=== PATIENT | female | born 1960 | race Caucasian/White ===

== ENCOUNTER → 2023-07-23 | Outpatient (CLI) | payer OTHER, SELFPAY ==
[2023-07-23 12:10] LABS: Erythrocyte Sedimentation Rate 43 mm/hr (0-30)
[2023-07-23 12:12] LABS: Absolute Lymphocyte Count 1.45 X10^3/uL (0.83-4.51); Absolute Neutrophil Count 7.8 X10^3/uL (2.0-7.7); Basophil# 0.06 X10^3/uL; Basophil% 0.6 % (0-1); Eosinophil# 0.69 X10^3/uL; Eosinophils% 6.5 % (0-5); Hematocrit 41.4 % (37-47); Hemoglobin 13.2 g/dL (12.0-15.0); Lymphocyte # 1.45 X10^3/ul (0.83-4.51); Lymphocyte % 13.6 % (19-41); Mean Corp Hgb Conc 31.9 g/dL (32-36); Mean Corpuscular Hgb 30.2 pg (27.0-32.0); Mean Corpuscular Volume 94.7 fL (81-99); Monocyte# 0.62 X10^3/uL; Monocyte% 5.8 % (0-10); NRBC Flagged by Analyzer 0 % (0-5); Neutrophil # 7.77 X10^3/uL (2.7-7.7); Neutrophil % 73.1 % (47-70); Platelet Count 338 K/mm3 (150-450); RBC Distribution Width CV 14.6 % (11.6-14.6); RBC Distribution Width SD 50.8 fl (35.1-43.9); Red Blood Count 4.37 M/mm3 (4.2-5.4); White Blood Count 10.6 K/mm3 (4.4-11.0)
[2023-07-23 12:45] LABS: ALB/GLOB Ratio 0.8 RATIO (0.9-2.4); AST(SGOT) 22 U/L (15-37); Alanine Aminotransfer ALT/SGPT 36 U/L (13-56); Albumin, Serum 3.3 g/dL (3.2-5.0); Alkaline Phosphatase 79 U/L (45-117); Anion Gap 7 (5-15); BUN 20 mg/dL (7-18); BUN/Creat Ratio 18.7 RATIO (10-20); Calcium,Total 8.8 mg/dL (8.5-10.1); Chloride 109 mmol/L (98-107); Creatinine, Serum 1.07 mg/dL (0.55-1.02); EST Glomerular Filtration Rate 55 mL/min (>60); Est Glom Filt Rate - Afr Amer 67 mL/min (>60); Globulin 4.2 g/dL (2.2-4.2); Glucose 94 mg/dL (74-106); Potassium 4.2 mmol/L (3.5-5.1); Protein, Total 7.5 g/dL (6.4-8.2); Rheumatoid Factor < 10.0 IU/mL (<15); Sodium Level 142 mmol/L (136-145)
[2023-07-23 13:53] LABS: Hepatitis B Surface Antibody Non-Reactive; Hepatitis B Surface Antigen Non-Reactive (Nonreactive); Hepatitis C Antibody Non-Reactive (Nonreactive)
[2023-07-24 12:08] LABS: ANTINUCLEAR ANTIBODIES DIRECT Negative (Negative)
[2023-07-25 13:07] LABS: CCP IgG Antibodies 33 units (0-19); QNTFERON TB Mitogen Value 5.75 IU/mL (.); QNTFERON TB Nil Value 0 IU/mL (.); QNTFERON TB1+ Ag Value 0.02 IU/mL (.); QNTFERON TB2+ Ag Value 0.02 IU/mL (.); QNTIFERON TB Positive Criteria Negative (Negative)
== END | disposition home or self-care (01) ==
PROVIDERS: PCP Family Medicine; Referring Provider Internal Medicine Rheumatology; Visit Provider Internal Medicine Rheumatology
DX: M06.4 Inflammatory polyarthropathy (principal); M79.7 Fibromyalgia; I10 Essential (primary) hypertension; E78.5 Hyperlipidemia, unspecified; Z87.39 Personal history of other diseases of the musculoskeletal system and connective tissue
CPT/HCPCS: 36415; 80053; 85025; 85652; 86038; 86140; 86200; 86431; 86480; 86706; 86803; 87340

== ENCOUNTER → 2023-08-29 | Outpatient (CLI) | payer OTHER, SELFPAY ==
[2023-08-29 17:41] LABS: Absolute Neutrophil Count 4.9 X10^3/uL (2.0-7.7); Basophil# 0.06 X10^3/uL; Basophil% 0.8 % (0-1); Eosinophil# 0.15 X10^3/uL; Hematocrit 39.3 % (37-47); Hemoglobin 12.9 g/dL (12.0-15.0); Lymphocyte % 23.2 % (19-41); Mean Corp Hgb Conc 32.8 g/dL (32-36); Mean Corpuscular Hgb 30.9 pg (27.0-32.0); Mean Corpuscular Volume 94.2 fL (81-99); Mean Platelet Vol. 11.3 fl (6.2-12.0); Monocyte# 0.51 X10^3/uL; NRBC Flagged by Analyzer 0 % (0-5); Neutrophil # 4.87 X10^3/uL (2.7-7.7); Neutrophil % 66.6 % (47-70); Platelet Count 338 K/mm3 (150-450); RBC Distribution Width CV 13.9 % (11.6-14.6); RBC Distribution Width SD 47.1 fl (35.1-43.9); Red Blood Count 4.17 M/mm3 (4.2-5.4); White Blood Count 7.3 K/mm3 (4.4-11.0)
[2023-08-29 17:56] LABS: ALB/GLOB Ratio 0.9 RATIO (0.9-2.4); AST(SGOT) 28 U/L (15-37); Alanine Aminotransfer ALT/SGPT 33 U/L (13-56); Albumin, Serum 3.5 g/dL (3.2-5.0); Alkaline Phosphatase 78 U/L (45-117); Anion Gap 9 (5-15); BUN 19 mg/dL (7-18); BUN/Creat Ratio 12.8 RATIO (10-20); Calcium,Total 8.9 mg/dL (8.5-10.1); Chloride 106 mmol/L (98-107); Creatinine, Serum 1.49 mg/dL (0.55-1.02); EST Glomerular Filtration Rate 38 mL/min (>60); Est Glom Filt Rate - Afr Amer 46 mL/min (>60); Globulin 4.1 g/dL (2.2-4.2); Glucose 86 mg/dL (74-106); Protein, Total 7.6 g/dL (6.4-8.2); Sodium Level 140 mmol/L (136-145)
== END | disposition home or self-care (01) ==
LOC: MTLAB 14:28
PROVIDERS: PCP Family Medicine; Referring Provider Internal Medicine Rheumatology; Visit Provider Internal Medicine Rheumatology
DX: M06.4 Inflammatory polyarthropathy (principal); Z79.899 Other long term (current) drug therapy; M79.7 Fibromyalgia; M17.0 Bilateral primary osteoarthritis of knee; M47.897 Other spondylosis, lumbosacral region; I10 Essential (primary) hypertension; E78.5 Hyperlipidemia, unspecified; E03.9 Hypothyroidism, unspecified; Z86.718 Personal history of other venous thrombosis and embolism; F32.A Depression, unspecified
CPT/HCPCS: 36415; 80053; 85025

== ENCOUNTER → 2023-10-09 | Outpatient (CLI) | payer BC, SELFPAY ==
--- OUTSIDE RECORDS SUMMARY | 2023-10-09 16:36 | XMS RPT_ITS | CCD ---
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 Carmen Vieira Unavailable Unavailable Chayo Hamilton MD Primary Care Provider Chayo Hamilton MD Primary Care Provider CHAYO HAMILTON Primary Care Unavailable OSWALD MCKENZIE Attending Unavailable YESY LOPEZ Attending Unavailable Allergies Allergy Classification Reported Allergen(s) Allergy Type Date of Onset Reaction(s) Facility (11 sources) Codeine; Translations: [Codeine] Drug Allergy 06-01-2019 Nausea Only [place], [place] (9 sources) DULoxetine; Translations: [DULoxetine] Drug Allergy 11-22-2020 [facility] (5 sources) Fenofibrate; Translations: [Fenofibrate] Drug Allergy 11-22-2020 [facility] (4 sources) Fenofibrate Drug Allergy 11-22-2020 [facility] Medications Current Medications Medication Drug Class(es) Dates Sig (Normalized) Sig (Original) acetaminophen 325 mg oral tablet (20 sources) Start: 02-09-2022 Tylenol Tablet 325 MG 650 mg Tablet Oral Give 650 mg by mouth every 4 hours as needed for Pain Maximum dose of acetaminophen is 4000 my from all sources 02/09/2022 10:15:00 Completed/Discontinued Medications Medication Drug Class(es) Dates Sig (Normalized) Sig (Original) acetaminophen 325 mg / HYDROcodone bitartrate 5 mg oral tablet (1 source) Opioid Agonist Start: 06-01-2019 End: 06-01-2019 HYDROcodone-aceta minophen (NORCO) 5-325 MG per tablet 1 tablet amLODIPine 10 mg oral tablet (3 sources) Dihydropyridine Calcium Channel Roel End: 06-25-2019 take 1 tablet by mouth once daily amLODIPine (NORVASC) 10 MG tablet Take 10 mg by mouth daily 0 06/25/2019 Discontinued (Stop Taking at Discharge) ampicillin-sulbacta m (UNASYN) 3,000 mg in sodium chloride 0.9 % 100 mL IVPB (ADD-VANTAGE) (2 sources) Start: 08-06-2021 End: 08-07-2021 ampicillin-sulbac villeda (UNASYN) 3,000 mg in sodium chloride 0.9 % 100 mL IVPB (ADD-VANTAGE) Problems Active Problems Problem Classification Problem Date Documented Da te Episodic/Chronic Acute and unspecified renal failure (10 sources) Acute injury of kidney; Translations: [JESUS (acute kidney injury) (HCC)] Onset: 06-01-2019 06-01-2019 Asthma (1 source) Asthma Onset: 02-09-2022 Chronic kidney disease (1 source) Chronic kidney disease Onset: 02-09-2022 Chronic obstructive pulmonary disease and bronchiectasis (1 source) Chronic obstructive pulmonary disease and bronchiectasis Onset: 02-09-2022 Coronary atherosclerosis and other heart disease (1 source) Coronary atherosclerosis and other heart disease Onset: 02-09-2022 Gastrointestinal hemorrhage (7 sources) Blood-tinged feces; Translations: [Hematochezia] 06-16-2019 Mood disorders (1 source) Mood disorders Onset: 02-09-2022 Osteoarthritis (9 sources) Arthritis of right ankle; Translations: [Primary osteoarthritis, right ankle and foot] Onset: 02-06-2022 02-06-2022 Chronic Other connective tissue disease (1 source) Swelling of lower limb; Translations: [Leg swelling] Episodic Other nervous system disorders (1 source) Polyneuropathy; Translations: [Peripheral polyneuropathy] Chronic Other nervous system disorders (1 source) Walking disability Onset: 02-09-2022 Chronic Other nervous system disorders (2 sources) Other chronic pain; Translations: [Other chronic pain] Onset: 04-10-2023 Chronic Other non-traumatic joint disorders (1 source) Developmental dislocation of ankle and/or foot Onset: 02-09-2022 Chronic Other non-traumatic joint disorders (4 sources) Pain in right knee; Translations: [Pain in joint, lower leg] Onset: 04-10-2023 04-10-2023 Episodic Other nutritional; endocrine; and metabolic disorders (1 source) Morbid obesity Onset: 02-09-2022 Chronic Phlebitis; thrombophlebitis and thromboembolism (8 sources) Acute deep venous thrombosis of bilateral legs; Translations: [Acute deep venous thrombosis of right lower extremity] 06-16-2019 Residual codes; unclassified (1 source) Edema of lower extremity; Translations: [Bilateral lower extremity edema] Episodic Residual codes; unclassified (1 source) Other specified health status; Translations: [Other specified conditions influencing health status] Episodic Unclassified (13 sources) Onset: 02-09-2022 Past or Other Problems Problem Classification Problem Date Documented Da te Episodic/Chronic Acquired foot deformities (6 sources) Talipes cavus; Translations: [Congenital pes cavus, right foot] Onset: 02-06-2022 Episodic Acute and unspecified renal failure (19 sources) Acute renal failure syndrome; Translations: [Acute injury of kidney] Onset: 06-01-2019 Resolved: 06-23-2019 06-23-2019 Episodic Deficiency and other anemia (15 sources) Anemia; Translations: [Anemia, unspecified] Onset: 06-16-2019 06-16-2019 Episodic Gastrointestinal hemorrhage (8 sources) Blood-tinged feces; Translations: [Melena] Onset: 06-16-2019 06-16-2019 Episodic Other aftercare (15 sources) Long-term current use of anticoagulant; 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] Onset: 06-16-2019 06-16-2019 Episodic Other non-traumatic joint disorders (2 sources) Pain in left knee; Translations: [Pain in left knee] Onset: 08-08-2022 Episodic Phlebitis; thrombophlebitis and thromboembolism (9 sources) Acute deep vein thrombosis of lower limb; Translations: [Acute deep venous thrombosis of bilateral legs] Onset: 06-16-2019 06-16-2019 Episodic Residual codes; unclassified (11 sources) History of colonoscopy; Translations: [Other specified postprocedural states] Resolved: 06-23-2019 06-23-2019 Episodic Skin and subcutaneous tissue infections (9 sources) Cellulitis of face; Translations: [Cellulitis of face] Onset: 08-06-2021 Episodic Results Test Name Value Interpretation Reference Range Facil ity Vital Signs Date Time Vital Sign Value Performing Clinician Kalyn regan 02-22-2022 12:32-0400 PAIN LEVEL 2 {score} Dr. Carmen Vieira [facility] 02-22-2022 12:09-0400 PAIN LEVEL 5 {score} Dr. Carmen Vieira [facility] 02-22-2022 07:29-0400 PAIN LEVEL 1 {score} Dr. Carmen Vieira [facility] 02-22-2022 07:28-0400 Body temperature 97.7 [degF] Dr. Carmen Vieira [facility] 02-22-2022 07:28-0400 Diastolic blood pressure 78 mm[Hg] Dr. Carmen Vieira [facility] 02-22-2022 07:28-0400 Heart rate 78 /min Dr. Carmen Vieira [facility] 02-22-2022 07:28-0400 Respiratory rate 15 /min Dr. Carmen Vieira [facility] 02-22-2022 07:28-0400 Systolic blood pressure 148 mm[Hg] Dr. Carmen Vieira [facility] 02-22-2022 07:28-0400 PAIN LEVEL 1 {score} Dr. Carmen Vieira [facility] 02-22-2022 05:53-0400 PAIN LEVEL 4 {score} Dr. Carmen Vieira [facility] 02-22-2022 01:11-0400 Body temperature 97.7 [degF] Dr. Carmen Vieira [facility] 02-22-2022 01:11-0400 Diastolic blood pressure 94 mm[Hg] Dr. Carmen Vieira [facility] 02-22-2022 01:11-0400 Heart rate 75 /min Dr. Carmen Vieira [facility] 02-22-2022 01:11-0400 Respiratory rate 18 /min Dr. Carmen Vieira [facility] 02-22-2022 01:11-0400 Systolic blood pressure 163 mm[Hg] Dr. Carmen Vieira [facility] 02-22-2022 01:11-0400 PAIN LEVEL 0 {score} Dr. Carmen Vieira [facility] 02-22-2022 00:16-0400 PAIN LEVEL 0 {score} Dr. Carmen Vieira [facility] 02-21-2022 23:18-0400 PAIN LEVEL 0 {score} Dr. Carmen Vieira [facility] 02-21-2022 21:00-0400 PAIN LEVEL 4 {score} Dr. Carmen Vieira [facility] 02-21-2022 16:55-0400 PAIN LEVEL 6 {score} Dr. Carmen Vieira [facility] 02-21-2022 13:39-0400 PAIN LEVEL 1 {score} Dr. Carmen Vieira [facility] 02-21-2022 12:44-0400 PAIN LEVEL 5 {score} Dr. Carmen Vieira [facility] 02-21-2022 08:51-0400 PAIN LEVEL 1 {score} Dr. Carmen Vieira [facility] 02-21-2022 08:27-0400 Body temperature 97.7 [degF] Dr. Carmen Vieira [facility] 02-21-2022 08:27-0400 Diastolic blood pressure 87 mm[Hg] Dr. Carmen Vieira [facility] 02-21-2022 08:27-0400 Heart rate 102 /min Dr. Carmen Vieira [facility] 02-21-2022 08:27-0400 Respiratory rate 18 /min Dr. Carmen Vieira [facility] 02-21-2022 08:27-0400 Systolic blood pressure 159 mm[Hg] Dr. Carmen Vieira [facility] 02-21-2022 08:26-0400 PAIN LEVEL 5 {score} Dr. Carmen Vieira [facility] 02-21-2022 08:26-0400 PAIN LEVEL 5 {score} Dr. Carmen Vieira [facility] 02-20-2022 22:32-0400 Body temperature 97.1 [degF] Dr. Carmen Vieira [facility] 02-20-2022 22:32-0400 Diastolic blood pressure 88 mm[Hg] Dr. Carmen Vieira [facility] 02-20-2022 22:32-0400 Heart rate 90 /min Dr. Carmen Vieira [facility] 02-20-2022 22:32-0400 Respiratory rate 16 /min Dr. Carmen Vieira [facility] 02-20-2022 22:32-0400 Systolic blood pressure 147 mm[Hg] Dr. Carmen Vieira [facility] 02-20-2022 22:32-0400 PAIN LEVEL 4 {score} Dr. Carmen Vieira [facility] 02-20-2022 20:43-0400 PAIN LEVEL 4 {score} Dr. Carmen Vieira [facility] 02-20-2022 20:05-0400 PAIN LEVEL 5 {score} Dr. Carmen Vieira [facility] 02-20-2022 18:04-0400 PAIN LEVEL 1 {score} Dr. Carmen Vieira [facility] 02-20-2022 15:52-0400 PAIN LEVEL 3 {score} Dr. Carmen Vieira [facility] 02-20-2022 07:07-0400 Body temperature 97.5 [degF] Dr. Carmen Vieira [facility] 02-20-2022 07:07-0400 Diastolic blood pressure 84 mm[Hg] Dr. Carmen Vieira [facility] 02-20-2022 07:07-0400 Heart rate 82 /min Dr. Carmen Vieira [facility] 02-20-2022 07:07-0400 Systolic blood pressure 160 mm[Hg] Dr. Carmen Vieira [facility] 02-20-2022 07:07-0400 PAIN LEVEL 0 {score} Dr. Carmen Vieira [facility] 02-20-2022 05:43-0400 PAIN LEVEL 3 {score} Dr. Carmen Vieira [facility] 02-20-2022 05:21-0400 PAIN LEVEL 4 {score} Dr. Carmen Vieira [facility] 02-19-2022 22:35-0400 Body temperature 97.1 [degF] Dr. Carmen Vieira [facility] 02-19-2022 22:35-0400 Diastolic blood pressure 88 mm[Hg] Dr. Carmen Vieira [facility] 02-19-2022 22:35-0400 Heart rate 84 /min Dr. Carmen Vieira [facility] 02-19-2022 22:35-0400 Respiratory rate 16 /min Dr. Carmen Vieira [facility] 02-19-2022 22:35-0400 Systolic blood pressure 155 mm[Hg] Dr. Carmen Vieira [facility] 02-19-2022 22:35-0400 PAIN LEVEL 0 {score} Dr. Carmen Vieira [facility] 02-19-2022 22:10-0400 PAIN LEVEL 3 {score} Dr. Carmen Vieira [facility] 02-19-2022 21:15-0400 PAIN LEVEL 5 {score} Dr. Carmen Vieira [facility] 02-19-2022 17:39-0400 PAIN LEVEL 0 {score} Dr. Carmen Vieira [facility] 02-19-2022 15:55-0400 PAIN LEVEL 5 {score} Dr. Carmen Vieira [facility] 02-19-2022 07:02-0400 Body temperature 97.8 [degF] Dr. Carmen Vieira [facility] 02-19-2022 07:02-0400 Diastolic blood pressure 84 mm[Hg] Dr. Carmen Vieira [facility] 02-19-2022 07:02-0400 Heart rate 80 /min Dr. Carmen Vieira [facility] 02-19-2022 07:02-0400 Respiratory rate 16 /min Dr. Carmen Vieira [facility] 02-19-2022 07:02-0400 Systolic blood pressure 156 mm[Hg] Dr. Carmen Vieira [facility] 02-19-2022 05:42-0400 PAIN LEVEL 0 {score} Dr. Carmen Vieira [facility] 02-19-2022 05:10-0400 PAIN LEVEL 5 {score} Dr. Carmen Vieira [facility] 02-18-2022 23:16-0400 Body temperature 97.9 [degF] Dr. Carmen Vieira [facility] 02-18-2022 23:16-0400 Diastolic blood pressure 88 mm[Hg] Dr. Carmen Vieira [facility] 02-18-2022 23:16-0400 Heart rate 83 /min Dr. Carmen Vieira [facility] 02-18-2022 23:16-0400 Respiratory rate 16 /min Dr. Carmen Vieira [facility] 02-18-2022 23:16-0400 Systolic blood pressure 169 mm[Hg] Dr. Carmen Vieira [facility] 02-18-2022 23:16-0400 PAIN LEVEL 0 {score} Dr. Carmen Vieira [facility] 02-18-2022 23:01-0400 PAIN LEVEL 0 {score} Dr. Carmen Vieira [facility] 02-18-2022 21:09-0400 PAIN LEVEL 5 {score} Dr. Carmen Vieira [facility] 02-18-2022 17:10-0400 PAIN LEVEL 1 {score} Dr. Carmen Vieira [facility] 02-18-2022 16:18-0400 PAIN LEVEL 7 {score} Dr. Carmen Vieira [facility] 02-18-2022 14:00-0400 Body temperature 97 [degF] Dr. Carmen Vieira [facility] 02-18-2022 14:00-0400 Diastolic blood pressure 93 mm[Hg] Dr. Carmen Vieira [facility] 02-18-2022 14:00-0400 Heart rate 74 /min Dr. Carmen Vieira [facility] 02-18-2022 14:00-0400 Respiratory rate 18 /min Dr. Carmen Vieira [facility] 02-18-2022 12:16-0400 PAIN LEVEL 1 {score} Dr. Carmen Vieira [facility] 02-18-2022 12:12-0400 Body temperature 97.8 [degF] Dr. Carmen Vieira [facility] 02-18-2022 12:12-0400 Oxygen saturation in Blood 98 % Dr. Carmen Vieira [facility] 02-18-2022 11:42-0400 PAIN LEVEL 6 {score} Dr. Carmen Vieira [facility] 02-18-2022 07:47-0400 PAIN LEVEL 3 {score} Dr. Carmen Vieira [facility] 02-18-2022 07:46-0400 Body temperature 97.8 [degF] Dr. Carmen Vieira [facility] 02-18-2022 07:46-0400 Diastolic blood pressure 78 mm[Hg] Dr. Carmen Vieira [facility] 02-18-2022 07:46-0400 Heart rate 87 /min Dr. Carmen Vieira [facility] 02-18-2022 07:46-0400 Respiratory rate 16 /min Dr. Carmen Vieira [facility] 02-18-2022 07:46-0400 Systolic blood pressure 148 mm[Hg] Dr. Carmen Vieira [facility] 02-18-2022 07:46-0400 PAIN LEVEL 3 {score} Dr. Carmen Vieira [facility] 02-18-2022 06:22-0400 PAIN LEVEL 5 {score} Dr. Carmen Vieira [facility] 02-17-2022 23:42-0400 PAIN LEVEL 0 {score} Dr. Carmen Vieira [facility] 02-17-2022 20:15-0400 PAIN LEVEL 4 {score} Dr. Carmen Vieira [facility] 02-17-2022 15:54-0400 PAIN LEVEL 0 {score} Dr. Carmen Vieira [facility] 02-17-2022 14:37-0400 PAIN LEVEL 5 {score} Dr. Carmen Vieira [facility] 02-17-2022 12:44-0400 PAIN LEVEL 2 {score} Dr. Carmen Vieira [facility] 02-17-2022 11:56-0400 PAIN LEVEL 8 {score} Dr. Carmen Vieira [facility] 02-17-2022 10:44-0400 PAIN LEVEL 1 {score} Dr. Carmen Vieira [facility] 02-17-2022 08:45-0400 Body temperature 97.6 [degF] Dr. Carmen Vieira [facility] 02-17-2022 08:45-0400 Diastolic blood pressure 72 mm[Hg] Dr. Carmen Vieira [facility] 02-17-2022 08:45-0400 Heart rate 89 /min Dr. Carmen Vieira [facility] 02-17-2022 08:45-0400 Respiratory rate 18 /min Dr. Carmen Vieira [facility] 02-17-2022 08:45-0400 Systolic blood pressure 130 mm[Hg] Dr. Carmen Vieira [facility] 02-17-2022 08:38-0400 PAIN LEVEL 6 {score} Dr. Carmen Vieira [facility] 02-17-2022 08:37-0400 PAIN LEVEL 6 {score} Dr. Carmen Vieira [facility] 02-17-2022 05:48-0400 PAIN LEVEL 3 {score} Dr. Carmen Vieira [facility] 02-17-2022 01:26-0400 PAIN LEVEL 4 {score} Dr. Carmen Vieira [facility] 02-16-2022 23:18-0400 Body temperature 97.1 [degF] Dr. Carmen Vieira [facility] 02-16-2022 23:18-0400 Diastolic blood pressure 67 mm[Hg] Dr. Carmen Vieira [facility] 02-16-2022 23:18-0400 Heart rate 100 /min Dr. Carmen Vieira [facility] 02-16-2022 23:18-0400 Respiratory rate 20 /min Dr. Carmen Vieira [facility] 02-16-2022 23:18-0400 Systolic blood pressure 119 mm[Hg] Dr. Carmen Vieira [facility] 02-16-2022 23:18-0400 PAIN LEVEL 2 {score} Dr. Carmen Vieira [facility] 02-16-2022 20:48-0400 PAIN LEVEL 3 {score} Dr. Carmen Vieira [facility] 02-16-2022 19:54-0400 PAIN LEVEL 5 {score} Dr. Carmen Vieira [facility] 02-16-2022 10:17-0400 Body temperature 97.3 [degF] Dr. Carmen Vieira [facility] 02-16-2022 10:17-0400 Diastolic blood pressure 68 mm[Hg] Dr. Carmen Vieira [facility] 02-16-2022 10:17-0400 Heart rate 72 /min Dr. Carmen Vieira [facility] 02-16-2022 10:17-0400 Respiratory rate 16 /min Dr. Carmen Vieira [facility] 02-16-2022 10:17-0400 Systolic blood pressure 144 mm[Hg] Dr. Carmen Vieira [facility] 02-16-2022 10:12-0400 PAIN LEVEL 0 {score} Dr. Carmen Vieira [facility] 02-15-2022 22:44-0400 Body temperature 97.1 [degF] Dr. Carmen Vieira [facility] 02-15-2022 22:44-0400 Diastolic blood pressure 72 mm[Hg] Dr. Carmen Vieira [facility] 02-15-2022 22:44-0400 Heart rate 76 /min Dr. Carmen Vieira [facility] 02-15-2022 22:44-0400 Respiratory rate 16 /min Dr. Carmen Vieira [facility] 02-15-2022 22:44-0400 Systolic blood pressure 153 mm[Hg] Dr. Carmen Vieira [facility] 02-15-2022 22:44-0400 PAIN LEVEL 0 {score} Dr. Carmen Vieira [facility] 02-15-2022 20:47-0400 PAIN LEVEL 4 {score} Dr. Carmen Vieira [facility] 02-15-2022 20:15-0400 PAIN LEVEL 4 {score} Dr. Carmen Vieira [facility] 02-15-2022 14:37-0400 PAIN LEVEL 1 {score} Dr. Carmen Vieira [facility] 02-15-2022 14:00-0400 Body weight 175.[address] Carmen Vieira [facility] 02-15-2022 13:37-0400 PAIN LEVEL 5 {score} Dr. Carmen Vieira [facility] 02-15-2022 10:00-0400 PAIN LEVEL 2 {score} Dr. Carmen Vieira [facility] 02-15-2022 09:30-0400 PAIN LEVEL 6 {score} Dr. Carmen Vieira [facility] 02-15-2022 07:52-0400 Body temperature 97.9 [degF] Dr. Carmen Vieira [facility] 02-15-2022 07:52-0400 Diastolic blood pressure 74 mm[Hg] Dr. Carmen Vieira [facility] 02-15-2022 07:52-0400 Heart rate 76 /min Dr. Carmen Vieira [facility] 02-15-2022 07:52-0400 Respiratory rate 18 /min Dr. Carmen Vieira [facility] 02-15-2022 07:52-0400 Systolic blood pressure 150 mm[Hg] Dr. Carmen Vieira [facility] 02-15-2022 07:52-0400 PAIN LEVEL 2 {score} Dr. Carmen Vieira [facility] 02-15-2022 05:08-0400 PAIN LEVEL 1 {score} Dr. Carmen Vieira [facility] 02-15-2022 04:17-0400 PAIN LEVEL 3 {score} Dr. Carmen Vieira [facility] 02-15-2022 01:37-0400 PAIN LEVEL 1 {score} Dr. Carmen Vieira [facility] 02-15-2022 00:27-0400 Body temperature 98 [degF] Dr. Carmen Vieira [facility] 02-15-2022 00:27-0400 Diastolic blood pressure 76 mm[Hg] Dr. Carmen Vieira [facility] 02-15-2022 00:27-0400 Heart rate 71 /min Dr. Carmen Vieira [facility] 02-15-2022 00:27-0400 Respiratory rate 16 /min Dr. Carmen Vieira [facility] 02-15-2022 00:27-0400 Systolic blood pressure 144 mm[Hg] Dr. Carmen Vieira [facility] 02-15-2022 00:25-0400 PAIN LEVEL 1 {score} Dr. Carmen Vieira [facility] 02-15-2022 00:24-0400 PAIN LEVEL 3 {score} Dr. Carmen Vieira [facility] 02-14-2022 22:21-0400 PAIN LEVEL 0 {score} Dr. Carmen Vieira [facility] 02-14-2022 20:30-0400 PAIN LEVEL 4 {score} Dr. Carmen Vieira [facility] 02-14-2022 19:55-0400 PAIN LEVEL 1 {score} Dr. Carmen Vieira [facility] 02-14-2022 18:02-0400 PAIN LEVEL 5 {score} Dr. Carmen Vieira [facility] 02-14-2022 15:17-0400 PAIN LEVEL 1 {score} Dr. Carmen Vieira [facility] 02-14-2022 14:07-0400 PAIN LEVEL 6 {score} Dr. Carmen Vieira [facility] 02-14-2022 14:07-0400 Body weight 173.[address] Carmen Vieira [facility] 02-14-2022 09:57-0400 PAIN LEVEL 2 {score} Dr. Carmen Vieira [facility] 02-14-2022 08:23-0400 Body temperature 97.2 [degF] Dr. Carmen Vieira [facility] 02-14-2022 08:23-0400 Diastolic blood pressure 90 mm[Hg] Dr. Carmen Vieira [facility] 02-14-2022 08:23-0400 Heart rate 78 /min Dr. Carmen Vieira [facility] 02-14-2022 08:23-0400 Respiratory rate 16 /min Dr. Carmen Vieira [facility] 02-14-2022 08:23-0400 Systolic blood pressure 147 mm[Hg] Dr. Carmen Vieira [facility] 02-14-2022 08:07-0400 PAIN LEVEL 7 {score} Dr. Carmen Vieira [facility] 02-14-2022 07:05-0400 PAIN LEVEL 1 {score} Dr. Carmen Vieira [facility] 02-14-2022 05:51-0400 PAIN LEVEL 2 {score} Dr. Carmen Vieira [facility] 02-14-2022 05:17-0400 PAIN LEVEL 5 {score} Dr. Carmen Vieira [facility] 02-14-2022 04:49-0400 PAIN LEVEL 3 {score} Dr. Carmen Vieira [facility] 02-14-2022 02:20-0400 PAIN LEVEL 7 {score} Dr. Carmen Vieira [facility] 02-14-2022 02:12-0400 PAIN LEVEL 4 {score} Dr. Carmen Vieira [facility] 02-14-2022 00:16-0400 Body temperature 97 [degF] Dr. Carmen Vieira [facility] 02-14-2022 00:16-0400 Diastolic blood pressure 92 mm[Hg] Dr. Carmen Vieira [facility] 02-14-2022 00:16-0400 Heart rate 72 /min Dr. Carmen Vieira [facility] 02-14-2022 00:16-0400 Respiratory rate 16 /min Dr. Carmen Vieira [facility] 02-14-2022 00:16-0400 Systolic blood pressure 158 mm[Hg] Dr. Carmen Vieira [facility] 02-14-2022 00:08-0400 PAIN LEVEL 6 {score} Dr. Carmen Vieira [facility] 02-13-2022 23:37-0400 PAIN LEVEL 0 {score} Dr. Carmen Vieira [facility] 02-13-2022 23:14-0400 PAIN LEVEL 3 {score} Dr. Carmen Vieira [facility] 02-13-2022 20:24-0400 PAIN LEVEL 7 {score} Dr. Carmen Vieira [facility] 02-13-2022 19:33-0400 PAIN LEVEL 4 {score} Dr. Carmen Vieira [facility] 02-13-2022 18:22-0400 PAIN LEVEL 6 {score} Dr. Carmen Vieira [facility] 02-13-2022 15:36-0400 PAIN LEVEL 0 {score} Dr. Carmen Vieira [facility] 02-13-2022 14:31-0400 PAIN LEVEL 8 {score} Dr. Carmen Vieira [facility] 02-13-2022 13:01-0400 PAIN LEVEL 1 {score} Dr. Carmen Vieira [facility] 02-13-2022 12:06-0400 PAIN LEVEL 5 {score} Dr. Carmen Vieira [facility] 02-13-2022 08:57-0400 PAIN LEVEL 3 {score} Dr. Carmen Vieira [facility] 02-13-2022 08:21-0400 PAIN LEVEL 7 {score} Dr. Carmen Vieira [facility] 02-13-2022 07:49-0400 Body temperature 97.9 [degF] Dr. Carmen Vieira [facility] 02-13-2022 07:49-0400 Diastolic blood pressure 94 mm[Hg] Dr. Carmen Vieira [facility] 02-13-2022 07:49-0400 Heart rate 82 /min Dr. Carmen Vieira [facility] 02-13-2022 07:49-0400 Respiratory rate 16 /min Dr. Carmen Vieira [facility] 02-13-2022 07:49-0400 Systolic blood pressure 140 mm[Hg] Dr. Carmen Vieira [facility] 02-13-2022 07:49-0400 PAIN LEVEL 0 {score} Dr. Carmen Vieira [facility] 02-13-2022 05:52-0400 PAIN LEVEL 3 {score} Dr. Carmen Vieira [facility] 02-13-2022 05:08-0400 PAIN LEVEL 7 {score} Dr. Carmen Vieira [facility] 02-13-2022 03:27-0400 PAIN LEVEL 3 {score} Dr. Carmen Vieira [facility] 02-13-2022 01:55-0400 PAIN LEVEL 7 {score} Dr. Carmen Vieira [facility] 02-12-2022 23:34-0400 Body temperature 97.5 [degF] Dr. Carmen Vieira [facility] 02-12-2022 23:34-0400 Diastolic blood pressure 95 mm[Hg] Dr. Carmen Vieira [facility] 02-12-2022 23:34-0400 Heart rate 81 /min Dr. Carmen Vieira [facility] 02-12-2022 23:34-0400 Respiratory rate 18 /min Dr. Carmen Vieira [facility] 02-12-2022 23:34-0400 Systolic blood pressure 176 mm[Hg] Dr. Carmen Vieira [facility] 02-12-2022 23:20-0400 PAIN LEVEL 3 {score} Dr. Carmen Vieira [facility] 02-12-2022 19:48-0400 PAIN LEVEL 8 {score} Dr. Carmen Vieira [facility] 02-12-2022 15:32-0400 Body temperature 97.7 [degF] Dr. Carmen Vieira [facility] 02-12-2022 15:32-0400 Diastolic blood pressure 94 mm[Hg] Dr. Carmen Vieira [facility] 02-12-2022 15:32-0400 Heart rate 94 /min Dr. Carmen Vieira [facility] 02-12-2022 15:32-0400 Systolic blood pressure 150 mm[Hg] Dr. Carmen Vieira [facility] 02-12-2022 14:49-0400 PAIN LEVEL 2 {score} Dr. Carmen Vieira [facility] 02-12-2022 14:49-0400 PAIN LEVEL 2 {score} Dr. [facility] 02-12-2022 13:40-0400 PAIN LEVEL 8 {score} Dr. [facility] 02-12-2022 13:40-0400 PAIN LEVEL 8 {score} Dr. [facility] 02-12-2022 07:32-0400 PAIN LEVEL 2 {score} Dr. Carm[facility] 02-12-2022 05:41-0400 PAIN LEVEL 7 {score} Dr. [facility] 02-12-2022 04:52-0400 PAIN LEVEL 4 {score} Dr. Carm[facility] 02-11-2022 23:07-0400 PAIN LEVEL 6 {score} Dr. [facility] 02-11-2022 22:39-0400 PAIN LEVEL 7 {score} Dr. Carm[facility] 02-11-2022 20:21-0400 PAIN LEVEL 5 {score} Dr. [facility] 02-11-2022 20:21-0400 PAIN LEVEL 5 {score} Dr. [facility] 02-11-2022 17:49-0400 PAIN LEVEL 6 {score} Dr. Carm[facility] 02-11-2022 16:50-0400 PAIN LEVEL 7 {score} Dr. Carmen [facility] 02-11-2022 15:07-0400 PAIN LEVEL 0 {score} Dr. Carmen [facility] 02-11-2022 13:13-0400 PAIN LEVEL 2 {score} Dr. [facility] 02-11-2022 11:56-0400 PAIN LEVEL 7 {score} Dr. [facility] 02-11-2022 07:57-0400 Body temperature 97.2 [degF] Dr. [facility] 02-11-2022 07:57-0400 Diastolic blood pressure 74 mm[Hg] Dr. [facility] 02-11-2022 07:57-0400 Heart rate 88 /min Dr. Carmen [facility] 02-11-2022 07:57-0400 Oxygen saturation in Blood 93 % Dr. Carmen [facility] 02-11-2022 07:57-0400 Respiratory rate 18 /min Dr. Carmen [facility] 02-11-2022 07:57-0400 Systolic blood pressure 128 mm[Hg] Dr. Carmen [facility] 02-11-2022 07:06-0400 PAIN LEVEL 2 {score} Dr. Carmen [facility] 02-11-2022 05:58-0400 PAIN LEVEL 3 {score} Dr. Carmen [facility] 02-11-2022 05:58-0400 PAIN LEVEL 4 {score} Dr. Carmen [facility] 02-11-2022 05:32-0400 PAIN LEVEL 5 {score} Dr. [facility] 02-11-2022 02:04-0400 PAIN LEVEL 5 {score} Dr. [facility] 02-11-2022 00:21-0400 Body temperature 97.1 [degF] Dr. [facility] 02-11-2022 00:21-0400 Heart rate 109 /min Dr. [facility] 02-11-2022 00:21-0400 Respiratory rate 20 /min Dr. [facility] 02-11-2022 00:20-0400 Diastolic blood pressure 71 mm[Hg] Dr. [facility] 02-11-2022 00:20-0400 Systolic blood pressure 138 mm[Hg] Dr. Carmen [facility] 02-10-2022 22:06-0400 PAIN LEVEL 5 {score} Dr. [facility] 02-10-2022 21:02-0400 PAIN LEVEL 5 {score} Dr. Carm[facility] 02-10-2022 20:03-0400 PAIN LEVEL 7 {score} Dr. [facility] 02-10-2022 17:50-0400 PAIN LEVEL 1 {score} Dr. [facility] 02-10-2022 16:32-0400 PAIN LEVEL 4 {score} Dr. [facility] 02-10-2022 15:01-0400 Body weight 180.[address] [facility] 02-10-2022 13:36-0400 PAIN LEVEL 2 {score} Dr. [facility] 02-10-2022 13:36-0400 PAIN LEVEL 2 {score} Dr. Carm[facility] 02-10-2022 12:57-0400 PAIN LEVEL 6 {score} Dr. [facility] 02-10-2022 09:51-0400 PAIN LEVEL 8 {score} Dr. [facility] 02-10-2022 07:13-0400 PAIN LEVEL 2 {score} Dr. [facility] 02-10-2022 07:12-0400 PAIN LEVEL 2 {score} Dr. [facility] 02-10-2022 06:28-0400 PAIN LEVEL 9 {score} Dr. [facility] 02-10-2022 05:05-0400 PAIN LEVEL 5 {score} Dr. [facility] 02-10-2022 04:43-0400 Body height 182.[address] [facility] 02-10-2022 04:24-0400 PAIN LEVEL 9 {score} Dr. Carm[facility] 02-10-2022 01:06-0400 PAIN LEVEL 3 {score} Dr. [facility] 02-10-2022 01:06-0400 PAIN LEVEL 3 {score} Dr. [facility] 02-10-2022 00:35-0400 Body temperature 98 [degF] Dr. [facility] 02-10-2022 00:35-0400 Diastolic blood pressure 105 mm[Hg] Dr. [facility] 02-10-2022 00:35-0400 Heart rate 119 /min Dr. [facility] 02-10-2022 00:35-0400 Oxygen saturation in Blood 91 % Dr. Camren [facility] 02-10-2022 00:35-0400 Respiratory rate 18 /min Dr. [facility] 02-10-2022 00:35-0400 Systolic blood pressure 166 mm[Hg] Dr. [facility] 02-10-2022 00:34-0400 PAIN LEVEL 9 {score} Dr. [facility] 02-09-2022 23:15-0400 PAIN LEVEL 9 {score} Dr. [facility] 02-09-2022 16:29-0400 Heart rate 95 /min Dr. [facility] 02-09-2022 16:29-0400 Oxygen saturation in Blood 95 % Dr. [facility] 02-09-2022 16:29-0400 Respiratory rate 18 /min Dr. [facility] 02-09-2022 16:27-0400 Body temperature 97.8 [degF] Dr. [facility] 02-09-2022 16:27-0400 PAIN LEVEL 7 {score} Dr. [facility] 02-09-2022 16:26-0400 Diastolic blood pressure 80 mm[Hg] Dr. [facility] 02-09-2022 16:26-0400 Systolic blood pressure 130 mm[Hg] Dr. [facility] 08-09-2021 15:06-0500 Body temperature 98.6 [degF] Az Marvin MD Work Phone: [facility] 08-09-2021 15:06-0500 Diastolic blood pressure 83 mm[Hg] Az Marvin MD Work Phone: [facility] 08-09-2021 15:06-0500 Heart rate 85 /min Az Marvin MD Work Phone: [facility] 08-09-2021 15:06-0500 SaO2% (BldA) [Mass fraction] 94 % Az Marvin MD Work Phone: [facility] 08-09-2021 15:06-0500 Systolic blood pressure 117 mm[Hg] Az Marvin MD Work Phone: [facility] 08-09-2021 08:12-0500 Respiratory rate 16 /min Az Marvin MD Work Phone: [facility] 08-06-2021 09:51-0500 Body mass index (BMI) [Ratio] 55.1 kg/m2 Az Marvin MD Work Phone: [facility] 08-06-2021 09:51-0500 Body weight 174.18 kg Az Marvin MD Work Phone: [facility] 08-05-2021 07:55-0500 Heart rate 65 /min Cuco Koch MD Work Phone: [facility] 08-05-2021 07:55-0500 Respiratory rate 18 /min Cuco Koch MD Work Phone: [facility] 08-05-2021 07:55-0500 SaO2% (BldA) [Mass fraction] 96 % Cuco oKch MD Work Phone: [facility] 08-05-2021 07:22-0500 Body mass index (BMI) [Ratio] 55.1 kg/m2 Cuco Koch MD Work Phone: [facility] 08-05-2021 07:22-0500 Body temperature 97.5 [degF] Cuco Koch MD Work Phone: [facility] 08-05-2021 07:22-0500 Body weight 174.18 kg Cuco Koch MD Work Phone: [facility] 08-05-2021 07:22-0500 Diastolic blood pressure 92 mm[Hg] Cuco Koch MD Work Phone: [facility] 08-05-2021 07:22-0500 Systolic blood pressure 130 mm[Hg] Cuco Koch MD Work Phone: [facility] 06-15-2020 13:43-0400 BP Diastolic 93 mm[Hg] [facility] , [place] 06-15-2020 13:43-0400 BP Systolic 141 mm[Hg] [facility] , [place] 06-15-2020 13:43-0400 Pulse (Heart Rate) 63 /min [facility], [place] 06-15-2020 13:43-0400 Pulse Oximetry 96 % [facility] , [place] 06-15-2020 13:43-0400 Respiratory Rate 16 /min [facility], [place] 06-15-2020 12:32-0400 Body Temperature 99.5 [degF] [facility], [place] 06-15-2020 12:30-0400 BMI (Body Mass Index) 54.09 kg/m2 [facility], [place] 06-15-2020 12:30-0400 Body weight 171.01 kg [facility] , [place] 06-25-2019 07:50-0400 Body Temperature 96.4 [degF] [facility], [place] 06-25-2019 07:50-0400 BP Diastolic 80 mm[Hg] [facility], [place] 06-25-2019 07:50-0400 BP Systolic 107 mm[Hg] [facility], [place] 06-25-2019 07:50-0400 Pulse (Heart Rate) 85 /min [facility], [place] 06-25-2019 07:50-0400 Pulse Oximetry 94 % [facility], [place] 06-25-2019 07:50-0400 Respiratory Rate 17 /min [facility], [place] 06-24-2019 10:11-0400 Height 182.9 cm [facility], [place] 06-23-2019 05:02-0400 BMI (Body Mass Index) 48.96 kg/m2 [facility], [place] 06-23-2019 05:02-0400 Body weight 163.[facility], [place] 06-11-2019 16:51-0400 BP Diastolic 89 mm[Hg] [facility] , [place] 06-11-2019 16:51-0400 BP Systolic 156 mm[Hg] [facility] , [place] 06-11-2019 16:51-0400 Pulse (Heart Rate) 102 /min [facility], [place] 06-11-2019 16:51-0400 Pulse Oximetry 98 % [facility] , [place] 06-11-2019 16:51-0400 Respiratory Rate 18 /min [facility], [place] 06-11-2019 14:26-0400 Body Temperature 98.49 [degF] [facility], [place] 06-11-2019 10:28-0400 BMI (Body Mass Index) 50.21 kg/m2 [facility], [place] 06-11-2019 10:28-0400 Body weight 163.29 kg [facility] , [place] 06-11-2019 10:28-0400 Height 180.3 cm [facility] , [place] 06-02-2019 16:24-0400 Body Temperature 97.39 [degF] [facility] [place] 06-[facility] 16:24-0400 BP Diastolic 91 mm[Hg] Jorge Alberto Pisano [facility] , [place] 06-02-2019 16:24-0400 BP Systolic 142 mm[Hg] Jorge Alberto Pisano [facility] , [place] 06-02-2019 16:24-0400 Pulse (Heart Rate) 85 /min [facility] 06-02-2019 16:24-0400 Pulse Oximetry 97 % Jorge Alberto Higuera [facility] 06-02-2019 16:24-0400 Respiratory Rate 17 /min [facility] 06-02[facility]2019 01:45-0400 Body weight 163.93 kg Jorge Alberto Higuera [facility] Encounters Encounter Date Encounter Type Care Provider Facility Start: 06-12-2023 Telephone encounter Oswald melo MD Work Phone: [facility] Clinical Communication Procedures Date Procedure Procedure Detail Performing Clinician Start: 08-09-2021 Blood count complete auto&auto difrntl wbc Erika Melgar MD Work Phone: Start: 08-08-2021 Dup-scan xtr veins c omplete bilateral study Erika Melgar MD Work Phone: Start: 08-08-2021 Blood count complete auto&auto difrntl wbc Erika Melgar MD Work Phone: Start: 08-07-2021 Blood count complete auto&auto difrntl wbc Erika Melgar MD Work Phone: Start: 08-06-2021 Ct maxillofacial w/c ontrast material Erika Melgar MD Work Phone: Start: 08-06-2021 Basic metabolic pane l calcium total Az Marvin MD Work Phone: Start: 08-06-2021 Culture bacterial bl ood aerobic w/id isolates Az Marvin MD Work Phone: Start: 08-06-2021 CULTURE, BLOOD 1 Az Marvin MD Work Phone: Start: 06-19-2021 Us breast uni real t mandy with image limited Chayo Hamilton MD Work Phone: Start: 06-19-2021 MG CANCER RISK SURVEY P arpan Hamilton MD Work Phone: Start: 06-19-2021 End: 06-19-2021 Diagnostic mammography computer-aided detcj bi Chayo Hamilton MD Work Phone: Start: 05-16-2020 Us breast uni real t mandy with image limited Chayo Hamilton Work Phone: Start: 05-10-2020 Screening digital br east tomosynthesis bi Chayo Hamilton Work Phone: Start: 07-22-2019 Radiologic exam both knees standing anteropost Yesy Lopez Work Phone: Start: 07-22-2019 Radiologic examinati on knee 1/2 views Yesy Lopez Work Phone: Start: 06-25-2019 Thromboplastin time partial plasma/whole blood Jovani Ga Work Phone: Start: 06-25-2019 ADD ON LAB TEST Jovani Ga Work Phone: Start: 06-25-2019 Prothrombin time Jovani Ga Work Phone: Start: 06-25-2019 Thromboplastin time partial plasma/whole blood Alhaji Steph Janette Work Phone: Start: 06-25-2019 Blood count platelet automated Joy Parajuli Work Phone: Start: 06-25-2019 Prothrombin time Jovani Ga Work Phone: Start: 06-25-2019 Thromboplastin time partial plasma/whole blood Jovani Ga Work Phone: Start: 06-24-2019 Thromboplastin time partial plasma/whole blood Jovani Ga Work Phone: Start: 06-24-2019 Thromboplastin time partial plasma/whole blood Jovani Ga Work Phone: Start: 06-24-2019 Blood count hemoglobin Jovani Ga Work Phone: Start: 06-24-2019 Blood count platelet automated Jovani Ga Work Phone: Start: 06-24-2019 Prothrombin time Jovani Ga Work Phone: Start: 06-24-2019 Thromboplastin time partial plasma/whole blood Jovani Ga Work Phone: Start: 06-23-2019 Thromboplastin time partial plasma/whole blood Jovani Ga Work Phone: Start: 06-23-2019 Blood count hemoglobin Jovani Ga Work Phone: Start: 06-23-2019 Thromboplastin time partial plasma/whole blood Jovani Ga Work Phone: Start: 06-23-2019 Blood count hemoglobin Jovani Ga Work Phone: Start: 06-23-2019 Blood count platelet automated Joy Parajuli Work Phone: Start: 06-23-2019 Prothrombin time Jovani Ga Work Phone: Start: 06-23-2019 Thromboplastin time partial plasma/whole blood Jovani Ga Work Phone: Start: 06-22-2019 Blood count complete automated Jovani Ga Work Phone: Start: 06-22-2019 Thromboplastin time partial plasma/whole blood Jovani Ga Work Phone: Start: 06-22-2019 Blood count hemoglobin Joy Parajuli Work Phone: Start: 06-22-2019 Prothrombin time Pramil a Parajuli Work Phone: Start: 06-22-2019 Thromboplastin time partial plasma/whole blood Joy Parajuli Work Phone: Start: 06-22-2019 ADD ON LAB TEST Alhaji Savage Work Phone: Start: 06-22-2019 Blood count hemoglobin Joy Parajuli Work Phone: Start: 06-22-2019 Prothrombin time Alhaji Savage Work Phone: Start: 06-22-2019 Thromboplastin time partial plasma/whole blood Joy Parajuli Work Phone: Start: 06-21-2019 Blood count complete automated Joy Parajuli Work Phone: Start: 06-21-2019 Thromboplastin time partial plasma/whole blood Joy Parajuli Work Phone: Start: 06-21-2019 Blood count hemoglobin Joy Parajuli Work Phone: Start: 06-21-2019 Thromboplastin time partial plasma/whole blood Joy Parajuli Work Phone: Start: 06-21-2019 Blood count hemoglobin Joy Parajuli Work Phone: Start: 06-21-2019 Prothrombin time Alhaji Savage Work Phone: Start: 2019 Blood count hemoglobin Joy Parajuli Work Phone: Start: 2019 Prothrombin time Alhaji Savage Work Phone: Start: 06-19-2019 Blood count complete auto&auto difrntl wbc Cedrick Jono Work Phone: Start: 06-19-2019 Assay of blood/uric acid Joymaty Cifuentesli Work Phone: Start: 06-19-2019 BASIC METABOLIC PANE L W/ REFLEX TO MG FOR LOW K Cedrick Jono Work Phone: Start: 06-19-2019 Prothrombin time Alhaji Savage Work Phone: Start: 06-18-2019 Blood count complete auto&auto difrntl wbc Cedrick Jono Work Phone: Start: 06-18-2019 Prothrombin time Alhaji Choi Chaffee Work Phone: Start: 06-18-2019 Renal function panel Pr amila Parachristianali Work Phone: Start: 06-17-2019 End: 06-17-2019 Colonoscopy 3m Scanning Start: 06-17-2019 Level iv surg pathol ogy gross&microscopic exam Vish Harley Work Phone: Start: 06-17-2019 BASIC METABOLIC PANE L W/ REFLEX TO MG FOR LOW K Cedrick Jono Work Phone: Start: 06-17-2019 Blood count complete auto&auto difrntl wbc Joy Cifuentesli Work Phone: Start: 06-17-2019 Prothrombin time Alhaji Steph Janette Work Phone: Start: 06-17-2019 BLOOD OCCULT STOOL SCREEN #1 Joy Paramaryanne Work Phone: Start: 06-16-2019 BASIC METABOLIC PANE L W/ REFLEX TO MG FOR LOW K Cedrick Jono Work Phone: Start: 06-16-2019 Blood count complete auto&auto difrntl wbc Cedrick Dawnhra Work Phone: Start: 06-16-2019 Prothrombin time Pramil a Parajuli Work Phone: Start: 06-15-2019 DIAGNOSTIC SCANNED REPORT 3m Scanning Start: 06-15-2019 BASIC METABOLIC PANE L W/ REFLEX TO MG FOR LOW K Cedrick Jono Work Phone: Start: 06-15-2019 Blood count complete auto&auto difrntl wbc Cedrick Dawnhra Work Phone: Start: 06-15-2019 Prothrombin time Pallav y Harvey Work Phone: Start: 06-14-2019 Thromboplastin time partial plasma/whole blood Pallavy Harvey Work Phone: Start: 06-14-2019 Basic metabolic pane l calcium total Pallavy Harvey Work Phone: Start: 06-14-2019 Blood count complete auto&auto difrntl wbc Cedrick Jono Work Phone: Start: 06-14-2019 Thromboplastin time partial plasma/whole blood Pallavy Harvey Work Phone: Start: 06-13-2019 Thromboplastin time partial plasma/whole blood Pallavy Harvey Work Phone: Start: 06-13-2019 Blood count complete automated Pallavy Harvey Work Phone: Start: 06-13-2019 Prothrombin time Pallav y Harvey Work Phone: Start: 06-13-2019 Thromboplastin time partial plasma/whole blood Pallavy Harvey Work Phone: Start: 06-13-2019 Assay of magnesium Carlos khoi Jono Work Phone: Start: 06-13-2019 BASIC METABOLIC PANE L W/ REFLEX TO MG FOR LOW K Cedrick Zhua Work Phone: Start: 06-13-2019 Blood count complete auto&auto difrntl wbc Cedrick De La Cruz Work Phone: Start: 06-13-2019 Urine albumin quantitative Cedrick De La Cruz Work Phone: Start: 06-12-2019 ADD ON LAB TEST Pasquale pher Marilin Work Phone: Start: 06-12-2019 Dup-scan xtr veins c omplete bilateral study Jorge Alberto Cardenas Work Phone: Start: 06-12-2019 Basic metabolic pane l calcium total Jorge Alberto Cardenas Work Phone: Start: 06-12-2019 Blood count complete automated Jorge Alberto Cardenas Work Phone: Start: 06-12-2019 Hepatic function panel Jorge Alberto Cardenas Work Phone: Start: 06-12-2019 Natriuretic peptide Mar mariana Cardenas Work Phone: Start: 06-11-2019 Urnls dip stick/tabl et rgnt auto w/o microscopy Radha Zoila Work Phone: Start: 06-11-2019 Basic metabolic pane l calcium total Radha Cummings Work Phone: Start: 06-11-2019 Blood count complete auto&auto difrntl wbc Radha Cummings Work Phone: Start: 06-11-2019 Natriuretic peptide Livan yady Cummings Work Phone: Start: 06-11-2019 Radiologic exam ches t single view Radha Cummings Work Phone: Start: 06-02-2019 Us retroperitoneal r eal time w/image complete Elsie Corona Work Phone: Start: 06-02-2019 Echo tthrc r-t 2d w/ wom-mode compl spec&colr d Elsie Corona Work Phone: Start: 06-02-2019 Assay of thyroxine total Elsie Corona Work Phone: Start: 06-02-2019 Assay of magnesium Jj Corona Work Phone: Start: 06-02-2019 Assay of phosphorus inorganic Elsie Corona Work Phone: Start: 06-02-2019 Assay of thyroid sti mulating hormone tsh Elsie Corona Work Phone: Start: 06-02-2019 Assay of urine sodium L denis Corona Work Phone: Start: 06-02-2019 BASIC METABOLIC PANE L W/ REFLEX TO MG FOR LOW K Elsie Corona Work Phone: Start: 06-02-2019 Blood count complete auto&auto difrntl wbc Elsie Corona Work Phone: Start: 06-02-2019 Creatinine other source Elsie Corona Work Phone: Start: 06-02-2019 Hemoglobin glycosylated a1c Elsie Corona Work Phone: Start: 06-02-2019 Urnls dip stick/tabl et rgnt auto w/o microscopy Elsie Corona Work Phone: Start: 06-01-2019 Basic metabolic pane l calcium total Tamy Ruben Work Phone: Start: 06-01-2019 Blood count complete auto&auto difrntl wbc Tamy Ruben Work Phone: Start: 06-01-2019 Hepatic function panel Tamy Miranda Work Phone: Plan of Treatment Date Care Activity Detail Author Start: 06-17-2029 Colon cancer screen colonoscopy Colon cancer screen colonoscopy [place], [place] Start: 06-17-2029 Screening for malignant neoplasm of colon [facility] Start: 06-19-2023 Screening for malignant neoplasm of breast Breast cancer screen [facility] Start: 05-24-2023 Influenza vaccination Influenza Vaccine (#1) [facility] Start: 06-19-2022 Screening for malignant neoplasm of breast Mammogram [facility] Start: 06-02-2022 Diabetes screen Diabetes screen [facility] Start: 05-24-2022 Influenza vaccination Flu vaccine (#1) [facility] Start: 05-18-2022 End: 05-18-2022 Patient encounter procedure 05/18/2022 Office Visit Orthopedic Surgery Jules Mir MD [address] [place] [address] [address] [place] [address] [facility] [place] Start: 05-10-2022 Screening for malignant neoplasm of breast Breast cancer screen [place], [place] Start: 05-08-2022 End: 05-08-2022 Patient encounter procedure 05/08/2022 Office Visit Cardiology Bennie Tenorio MD [address] [place] [address] [address] [place] [address] [facility] Start: 11-19-2021 COVID-19 Vaccine (4 - Booster for Pfizer series) COVID-19 Vaccine (4 - Booster for Pfizer series) [facility] Start: 09-13-2021 COVID-19 Vaccine (4 - Booster for Pfizer series) COVID-19 Vaccine (4 - Booster for Pfizer series) [facility] Start: 09-12-2021 End: 09-12-2021 Patient encounter procedure 09/12/2021 Appointment Neurology Chayo Hamilton MD [address] [place] [id number] [facility] Start: 05-24-2021 Influenza vaccination Flu vaccine (#1) [facility] Start: 04-04-2021 COVID-19 Vaccine (3 - Booster for Pfizer series) COVID-19 Vaccine (3 - Booster for Pfizer series) [facility] Start: 06-19-2020 Creatinine monitoring Creatinine monitoring [place], [place] Start: 06-19-2020 Potassium monitoring Potassium monitoring [place], [place] Start: 06-17-2020 Screening for malignant neoplasm of colon FIT/FOBT: Average risk [facility] Start: 06-02-2020 Creatinine monitoring Creatinine monitoring [place], [place] Start: 06-02-2020 Potassium monitoring Potassium monitoring [place], [place] Start: 05-24-2020 Influenza vaccination Flu vaccine (#1) [place] Start: 05-11-2020 End: 05-11-2020 Office Visit 05/11/2020 Office Visit Orthopedic Surgery Yesy Lopez MD [address] [facility] [address] [place] [address] [phone] [facility] [place] Start: 10-21-2019 End: 10-21-2019 Office Visit 10/21/2019 Office Visit Orthopedic Surgery Yesy Lopez MD [address] [facility] [address] [place] [address] [phone] [facility] [place] Start: 07-16-2019 End: 07-16-2019 Appointment 07/16/2019 Appointment Neurology Chayo Hamilton MD [address] [place] [id number] [phone] [facility] Start: 06-26-2019 End: 06-26-2019 Anti-coag visit 06/26/2019 Anti-coag visit Pharmacy [facility] Start: 05-24-2019 Influenza vaccination Flu vaccine (#1) [place], [place] Start: 2011 Breast cancer screen Breast cancer screen [place], [place] Start: 2011 Colon cancer screen colonoscopy Colon cancer screen colonoscopy [place], [place] Start: 2011 Screening for malignant neoplasm of breast Breast cancer screen [place], [place] Start: 2011 Shingles Vaccine (1 of 2) Shingles Vaccine (1 of 2) [facility] Start: 2011 Zoster Vaccines (1 of 2) Zoster Vaccines (1 of 2) [facility] Start: 2006 Screening for malignant neoplasm of colon [facility] Start: 2001 Lipid panel [facility] Start: 2001 Lipid screen Lipid screen [place], [place] Start: 1991 Screening for malignant neoplasm of cervix [facility] Start: 1982 Cervical cancer screen Cervical cancer screen [place], [place] Start: 1982 Screening for malignant neoplasm of cervix [facility] Start: 1980 DTaP/Tdap/Td vaccine (1 - Tdap) DTaP/Tdap/Td vaccine (1 - Tdap) [facility] Start: 1980 DTaP/Tdap/Td Vaccines (1 - Tdap) DTaP/Tdap/Td Vaccines (1 - Tdap) [facility] Start: 1979 Diabetes mellitus screening Diabetes Screening [facility] Start: 1979 Hepatitis C screening [facility] Start: 1976 HIV screen HIV screen [place], [place] Start: 1976 HIV screening HIV screen [facility] Start: 1973 Depression Screen Depression Screen [facility] Start: 1973 Depression Screening Depression Screening [facility] Start: 1967 Pneumococcal 0-64 years Vaccine (1 - PCV) Pneumococcal 0-64 years Vaccine (1 - PCV) [facility] Start: 1967 Pneumococcal Vaccine: Pediatrics (0 to 5 Years) and At-Risk Patients (6 to 64 Years) (1 - PCV) Pneumococcal Vaccine: Pediatrics (0 to 5 Years) and At-Risk Patients (6 to 64 Years) (1 - PCV) [facility] Start: 1962 MMR Vaccines (1 of 1 - Standard series) MMR Vaccines (1 of 1 - Standard series) [facility] Start: 1960 Hepatitis C screen Hepatitis C screen [place], [place] Start: 1960 Hepatitis C screening Hepatitis C screen [facility] Start: 1960 HIV screening HIV Screening [facility] Start: 1960 Lipid panel Lipid Panel [facility] Start: 1960 Screening for malignant neoplasm of colon [facility] Start: 1960 Thyroid stimulating hormone measurement TSH Level [facility] aPTT Coag (Bld) [Time] APTT Lab Timed Now Then Every 6hr until discontinued starting 06/22/2019, 9 completed [place], [place] Immunizations Immunization Date Immunization Notes Care Provider Fa cility 07-19-2021 SARS-COV-2 (COVID-19 ) vaccine, mRNA, spike protein, LNP, preservative free, 30 mcg/0.3mL dose Dr. Carmen Vieira [facility] 10-05-2020 SARS-COV-2 (COVID-19 ) vaccine, mRNA, spike protein, LNP, preservative free, 30 mcg/0.3mL dose Dr. Carmen Vieira [facility] 09-14-2020 SARS-COV-2 (COVID-19 ) vaccine, mRNA, spike protein, LNP, preservative free, 30 mcg/0.3mL dose Dr. Carmen Vieira [facility] 08-10-2020 influenza virus vaccine, unspecified formulation Oswald Mckenzie MD Work Phone: [facility] 06-15-2019 influenza, injectabl e, quadrivalent, preservative free Rex Gaston [facility] 06-14-2019 influenza quadrivale nt split vaccine (FLUZONE;FLUARIX;FLULA TANNER;AFLURIA) injection [facility] mL [facility] [place] Payers Date Payer Category Payer Unknown [employer] [id number] 2023-Present [address] [place] [address] Commercial [id number] 2023 Unknown [id number] 2014 Unknown BCBS [place] - [place] P PO xxxxxxxxxxxx 2014-Present [address] [place] [address] xxxxxxxxxxxx [id number] 2014 Unknown [id number] 2014 Unknown [id number] Social History Date Type Detail Facility Start: 06-01-2019 End: 06-11-2019 Tobacco smoking status [facility] Never smoker [place] Start: 06-01-2019 End: 08-08-2022 Alcohol intake Not Currently [place], [place] Start: 1960 Sex Assigned At Not on file [place], [place] Start: 06-17-2019 End: 08-08-2022 Tobacco smoking status [facility] Former smoker [facility] End: 09-23-1994 History of tobacco use Cigarette Smoker [place] Start: 06-17-2019 End: 08-08-2022 Cigarettes smoked current (pack per day) - Reported [place] Start: 06-13-2019 Tobacco Comment quit 30 years ago [place], [place] Start: 05-11-2020 End: 08-08-2022 Tobacco use and exposure Never used [place] Start: 05-11-2020 End: 08-08-2022 Alcohol intake Ex-drinker (finding) [facility] Start: 03-31-2023 End: 04-10-2023 Exposure to SARS-CoV-2 (event) Not sure [place] End: 09-23-1994 History of tobacco use Current smoker [facility] Work Phone: Start: 08-07-2021 End: 04-06-2022 Tobacco Comment quit 25 years ago [facility] [employer] Phone: Start: 02-21-2022 Unknown if ever smoked [email or web address] Clinical Notes 08-09-2021 to 06-12-2023 Telephone Encounter - Felicita Stone - 06/12/2023 2:18 PM EDTTelephone Encounter - Felicita Stone - 06/12/2023 2:18 PM EDTTelephone Encounter - Alec Watson - 06/12/2023 1:22 PM EDT Note Date & Type Note Facility 06-12-2023 Telephone encount er Note Pt returned call stating she would just like it mailed to her instead of being faxed to the [facility]. Please Advise. [facility] 06-12-2023 Miscellaneous Notes Formattin g of this note might be different from the original. Pt returned call stating she would just like it mailed to her instead of being faxed to the [facility]. Please Advise. Pt calling to request a temporary handicap placard Rx. She has recently had surgery on her ankle and states her knees have been feeling worse and making it difficult to get around. She is unable to get her knee surgery yet while she is still healing for previous surgery. Patient would like this order faxed to [facility], will call back to give us the fax number for this location. Please advise. (Last office visit 04/10/23 for R knee injection, previously saw Dr. Lopez 08/14 for BL knees). documented in this encounter [facility] 06-12-2023 Telephone encount er Note Pt calling to request a temporary handicap placard Rx. She has recently had surgery on her ankle and states her knees have been feeling worse and making it difficult to get around. She is unable to get her knee surgery yet while she is still healing for previous surgery. Patient would like this order faxed to [facility], will call back to give us the fax number for this location. Please advise. (Last office visit 04/10/23 for R knee injection, previously saw Dr. Lopez 08/14 for BL knees). [facility] 05-24-2023 Telephone encount er Note Name of caller: Jose Contact phone number: [phone] Relationship to Patient: self Provider: Jonah Practice: [facility] Chief Complaint/Reason for Call: Pt wanting to know if she can get a temporary handicap placard due to having to use her cane. Please Advise. Best time of day caller can be reached: any Patient advised that office/PCP has 24-48 business hours to return their call: No [facility] 05-24-2023 Miscellaneous Notes Formattin g of this note might be different from the original. Name of caller: Jose Contact phone number: [phone] Relationship to Patient: self Provider: Jonah Practice: [facility] Chief Complaint/Reason for Call: Pt wanting to know if she can get a temporary handicap placard due to having to use her cane. Please Advise. Best time of day caller can be reached: any Patient advised that office/PCP has 24-48 business hours to return their call: No documented in this encounter [facility] 04-10-2023 History of Presen t illness Narrative Images from the original note were not included. [facility] [address] [place] [address] [place] [id number] Dept: [phone] Dept No chief complaint on file. Subjective History of Present Illness: Jose Ardon is a 62 y.o. female who presents today for evaluation of right knee pain. Location: deep and generalized Onset: 30+ years Injury: no Quality: sharp Mechanical symptoms: no Radiation of symptoms: yes - ankle Severity: 8/10 at rest and 8/10 at worst Exacerbating factor(s): direct pressure Relieving factor(s): nothing Timing: all day Imaging to date: 2018 Treatment to date: PT/OT/HEP: no Ice: no Heat: no Medications: Tylenol: no NSAIDs: no Oral steroids: no Muscle relaxants: no Nerve medications: no Targeted injections: CSIO September 2022 Assistive devices: none Prior surgery: no Occupation: real time analyst, AID Fall risk assessment: Less than 65, not applicable Objective There were no vitals taken for this visit. Physical Exam: General: Alert, well appearing, no acute distress. Respiratory: Breathing comfortably on room air. No respiratory distress. Skin: Warm, dry, intact. No visible rashes or erythema overlying area of focused exam. Left Knee Exam Tenderness The patient is experiencing tenderness in the lateral joint line. Range of Motion Extension: normal Flexion: normal Other Erythema: absent Pulse: present Effusion: no effusion present External Notes No pertinent interval updates Labs No results found for: HGBA1C Lab Results Component Value Date CREATININE 0.93 02/08/2022 Imaging Images reviewed with patient today X-rays of both knees were reviewed which showed bilateral severe osteoarthritis, joint space narrowing, osteophyte formation, sclerosing throughout. No acute abnormality. EMG/NCT N/A Procedure Procedure completed today, details below Verbal and written consent was obtained from the patient for right CSi. Consent included possibility of bleeding and infection, increased pain, and acute inflammatory reaction. The injection area was prepped in normal sterile fashion. I injected the patient's joint via superolateral approach, after aspiration without withdraw, with 1 cc of Betamethasone and 3 cc of 1 % lidocaine. Patient tolerated the procedure well and there were no complications. Injection site was bandaged. Assessment Diagnosis Plan 1. Primary osteoarthritis of both knees 2. Chronic pain of right knee Plan Bilateral knee osteoarthritis with a painful right knee. Right knee cortisone injection and postinjection instructions reviewed. She can use ice or Tylenol for pain or discomfort. Consider repeating x rays at next visit. We discussed hyaluronic acid injections as a possible next step. Contact us in 2 weeks with a call or [employer] message. Follow up if symptoms worsen or fail to improve. Oswald Mckenzie MD 04/10/2023 2:55 PM Please note that portions of this note may have been completed with voice recognition software. Documentation reviewed prior to signing but minor errors in field rep may have occurred. documented in this encounter [facility] 04-10-2023 Instructions Oswald Mckenzie MD - 04/10/2023 2:45 PM EDT Orthopaedics and Sports Medicine Patient Care Instructions Following a Cortisone Injection Take it easy for the next 2-3 days and do not increase your activity level even if you notice a significant improvement. The numbing medicine in the injection will wear off in 1-2 hours and you may experience tenderness later today. Ice the area for 15-20 minutes when needed this afternoon and again later tonight Do not use heating pads, hot tubs or whirlpools The steroid can take up to 3-5 days to take effect If you have diabetes, the injection may temporarily increase your blood sugar levels If you have high blood pressure, the injection may temporarily increase you blood pressure If you are referred to physical therapy, please wait 3 days after your injection to start your first physical therapy appointment Please observe your injection site for redness, swelling, and increase warmth, If you notice any of these symptoms at the joint that last longer than 2 days or if you develop a fever, please call the office as soon as possible at [phone] documented in this encounter [facility] 04-10-2023 Miscellaneous Notes Addended by: DASIA GARIBAY on: 04/10/2023 03:41 PM Modules accepted: Orders documented in this encounter [facility] 04-10-2023 Note Addended by: DASIA GARIBAY on: 04/10/2023 03:41 PM Modules accepted: Orders [facility] 04-10-2023 Note Addended by: DASIA GARIBAY on: 04/10/2023 03:41 PM Modules accepted: Orders [facility] 02-06-2022 Note Patient Name: Layne Ardon Date of : 1960 Date: 02/16/22 Discharge Summary Admit date: 02/06/2022 Discharge date and time: 02/09/2022 3:20 PM Admitting Physician: Jules Mir MD Admission Diagnoses: Right foot deformity Discharge Diagnoses: same Problem List: Active Problems: Pes cavus of right foot Arthritis of right ankle Resolved Problems: * No resolved hospital problems. * Body mass index is 56.96 kg/m?. Operative Procedures: Right ankle triple arthrodesis Hospital Course: The patient was admitted for the above procedure. After undergoing the above procedure without complications, the patient recovered well in PACU. The patient progressed with physical therapy and met all goals prior to discharge. The patient was tolerating a diet and had their pain controlled prior to discharge. The patient was d/c in stable condition. Disposition: per / Discharge Medications: Medication List START taking these medications ondansetron 4 MG disintegrating tablet Commonly known as: ZOFRAN-ODT Take 1 tablet by mouth 3 times daily as needed for Nausea or Vomiting CONTINUE taking these medications Acetaminophen 325 MG Caps buPROPion 300 MG extended release tablet Commonly known as: WELLBUTRIN XL celecoxib 200 MG capsule Commonly known as: CELEBREX CRANBERRY-CALCIUM PO Eliquis 5 MG Tabs tablet Generic drug: apixaban Fish Oil 500 MG Caps levothyroxine 175 MCG tablet Commonly known as: SYNTHROID metoprolol tartrate 25 MG tablet Commonly known as: LOPRESSOR Take 1 tablet by mouth 2 times daily ProAir HFA 108 (90 Base) MCG/ACT inhaler Generic drug: albuterol sulfate HFA QUEtiapine 200 MG tablet Commonly known as: SEROQUEL ASK your doctor about these medications oxyCODONE-acetaminophen 5-325 MG per tablet Commonly known as: Percocet Take 1 tablet by mouth every 6 hours as needed for Pain for up to 7 days. Intended supply: 7 days. Take lowest dose possible to manage pain Ask about: Should I take this medication? Where to Get Your Medications You can get these medications from any pharmacy Bring a paper prescription for each of these medications ? ondansetron 4 MG disintegrating tablet Information about where to get these medications is not yet available Ask your nurse or doctor about these medications ? oxyCODONE-acetaminophen 5-325 MG per tablet Patient Instructions: The patient will notify the office for any increased bleeding, drainage, or progressively worsening pain, or other concerning symptoms. They have been instructed to report to the emergency room immediately for any chest pain or shortness of breath. Activity Precautions: NWB on RLE. Work on obtaining range of motion as discussed in the discharge instructions. Patient was provided with appropriate DVT prophylactic medication as well as appropriate analgesia medication. Wound Care: -See discharge instructions Follow-up visit with Dr. Mir in 2-3 weeks post-op. Signed: Terrell Garcia MD 02/16/2022 7:16 AM [facility] 08-09-2021 Note Hospitalist Discharg e Summary Jose Ardon : 1960 Admit date: 08/06/2021 Discharge date: 08/09/2021 Admitting Physician: Erika Melgar MD Primary Care Physician: Chayo Hamilton MD Visit Status: Admission Code Status: Prior Discharge Diagnoses: 1. Facial swelling and?eyelid?erythema likely secondary to preseptal cellulitis-->?patient presents with facial swelling and eyelid erythema the bilateral eyelids, left worse than right. On exam, there was no chemosis, ophthalmoplegia, vision changes, and pain with eye movement. Therefore, low suspicion for orbital cellulitis. ?CT of the maxofacial consistent with periorbital cellulitis of left orbit. Started on vancomycin and Unasyn. ENT consulted and recommended treatment with antibiotics with no concern for orbital cellulitis. Discussed the case with ID stewardship who recommended changing to linezolid. Patient discharged home on oral antibiotics. 2. History of DVT on Eliquis--> due to worsening swelling and pain lower extremity right worse than left, obtained duplex of the bilateral lower extremities--> which was negative for DVT 3. Morbid obesity-BMI 55.10 4. Asthma 5. CKD stage 3 (GFR 30-59) 6. Depression 7. Hypertension 8. Hypothyroidism Diagnosis Date ? Arthritis ? Chronic kidney disease ? COPD (chronic obstructive pulmonary disease) (HCC) ? Hyperlipidemia ? Hypertension ? Thyroid disease Procedures: None Hospital Course: See discharge diagnoses list above and medication adjustments below in med rec.The patient is discharged in improved and stable condition. Consults: IP CONSULT TO OTOLARYNGOLOGY PHARMACY TO DOSE VANCOMYCIN Discharge Instructions: Diet: No diet orders on file Activity: as tolerated Recommended Outpatient Tests: Disposition: Patient discharged in stable condition to Home. Greater than 30 minutes spent discharging the patient and coming up with patient discharge plan. Vitals: BP 117/83 Pulse 85 Temp 98.6 ?F (37 ?C) (Temporal) Resp 16 Wt (!) 384 lb (174.2 kg) SpO2 94% BMI 55.10 kg/m? Pulse Ox: No data recorded Supplemental O2: General appearance: No apparent distress, appears stated age and cooperative with exam HEENT: Normal cephalic, atraumatic without obvious deformity. Pupils equal, round, and reactive to light. Extra ocular muscles intact. Conjunctivae/corneas clear. Neck: Supple, with full range of motion. No jugular venous distention. Trachea midline. No lymphadenopathy. Respiratory: Normal respiratory effort. Clear to auscultation, bilaterally without Rales/Wheezes/Rhonchi. Cardiovascular: Regular rate and rhythm with normal S1/S2 without murmurs, rubs or gallops. Abdomen: Soft, non-tender, non-distended with normal bowel sounds. No rebound or guarding. Musculoskeletal: No clubbing, cyanosis or edema bilaterally. Full range of motion without deformity. Skin: Skin color, texture, turgor normal. No rashes or lesions. Neurologic: Neurovascularly intact without any focal sensory/motor deficits. Cranial nerves: II-XII intact, grossly non-focal. Discharge Medications: Medication List START taking these medications linezolid 600 MG tablet Commonly known as: ZYVOX Take 1 tablet by mouth 2 times daily for 3 days CHANGE how you take these medications * Percocet 5-325 MG per tablet Generic drug: oxyCODONE-acetaminophen What changed: Another medication with the same name was added. Make sure you understand how and when to take each. * oxyCODONE-acetaminophen 5-325 MG per tablet Commonly known as: Percocet Take 1 tablet by mouth every 6 hours as needed for Pain for up to 7 days. What changed: You were already taking a medication with the same name, and this prescription was added. Make sure you understand how and when to take each. * This list has 2 medication(s) that are the same as other medications prescribed for you. Read the directions carefully, and ask your doctor or other care provider to review them with you. CONTINUE taking these medications Acetaminophen 325 MG Caps apixaban 5 MG Tabs tablet Commonly known as: Eliquis DVT/PE Starter Pack Take 10 mg (2 tablets) orally twice daily for 7 days, then take 5 mg (1 tablet) orally twice daily thereafter. celecoxib 200 MG capsule Commonly known as: CELEBREX CRANBERRY-CALCIUM PO Fish Oil 500 MG Caps FLUoxetine 20 MG capsule Commonly known as: PROZAC levothyroxine 175 MCG tablet Commonly known as: SYNTHROID metoprolol tartrate 25 MG tablet Commonly known as: LOPRESSOR Take 1 tablet by mouth 2 times daily ProAir HFA 108 (90 Base) MCG/ACT inhaler Generic drug: albuterol sulfate HFA QUEtiapine 200 MG tablet Commonly known as: SEROQUEL STOP taking these medications cephALEXin 500 MG capsule Commonly known as: KEFLEX warfarin 10 MG tablet Commonly known as: COUMADIN Where to Get Your Medications You can get these medications from any pharmacy (more content not included)... [facility] 08-09-2021 Hospital Discharg e instructions Erika Melgar MD - 08/09/2021 Images from the original note were not included. Cellulitis of the Eye: Care Instructions Your Care Instructions Cellulitis of the eye is an infection of the skin and tissues around the eye. It is also called preseptal cellulitis or periorbital cellulitis. It is usually caused by bacteria. This type of infection may happen after a sinus infection or a dental infection. It could also happen after an insect bite or an injury to the face. It most often occurs where there is a break in the skin. Cellulitis of the eye can be very serious. It's important to treat it right away. If you do, it usually goes away without lasting problems. Medicine and home treatment can help you get better. Follow-up care is a pierre part of your treatment and safety. Be sure to make and go to all appointments, and call your doctor if you are having problems. It's also a good idea to know your test results and keep a list of the medicines you take. How can you care for yourself at home? Take your antibiotics as directed. Do not stop taking them just because you feel better. You need to take the full course of antibiotics. Do not wear contact lenses unless your doctor tells you it is okay. Put your head on pillows, and put a cool, damp cloth on your eye. This can reduce swelling and pain. If your doctor recommends it, use a warm pack on your eye. Keep the skin around your eye clean and dry. Be safe with medicines. Read and follow all instructions on the label. ? If the doctor gave you a prescription medicine for pain, take it as prescribed. ? If you are not taking a prescription pain medicine, ask your doctor if you can take an jbcc-mct-kzyaukd medicine. To prevent cellulitis Wash your hands well after you use the bathroom and before and after you eat. Do not rub or pick at the skin around your eyes. Cellulitis occurs most often where there is a break in the skin. If you get a cut, pimple, or insect bite near your eye, clean the area as soon as you can. This can help prevent an infection. ? Wash the area with cool water and a mild soap, such as Ivory. ? Do not use rubbing alcohol, hydrogen peroxide, iodine, or Mercurochrome. These can harm the tissues and slow healing. Call your doctor if you have a sinus infection with redness or swelling of your eyes. When should you call for help? Call your doctor now or seek immediate medical care if: You have new or worse signs of an eye infection, such as: ? Pus or thick discharge coming from the eye. ? Redness or swelling around the eye. ? A fever. Your eye seems to be bulging out. You seem to be getting sicker. You have vision changes. Watch closely for changes in your health, and be sure to contact your doctor if: You do not get better as expected. Where can you learn more? Go to [email or web address] and sign in to your [employer] account. Enter B793 in the Search Health Information box to learn more about Cellulitis of the Eye: Care Instructions. If you do not have an account, please click on the Sign Up Now link. Current as of: January 19, 2021 Content Version: 13.0 [employer]. Care instructions adapted under license by [employer]. If you have questions about a medical condition or this instruction, always ask your healthcare professional. [employer] disclaims any warranty or liability for your use of this information. documented in this encounter [facility] Work Phone: 08-09-2021 History of Presen t illness Narrative Images from the original note were not included. Hospitalist Progress Note 08/09/2021 12:28 PM [phone]: Please page me ([phone]) for patient care issues. [phone]: Please page IMS night Hospitalist for any issues. Subjective: Admit Date: 08/06/2021 PCP: Chayo Hamilton MD Room#: 143/143 Interval History: No overnight issues. Patient doing well and symptoms are improving. Vitals remained stable. Denies chest pain, sob, abdominal pain, nausea, vomiting, diarrhea, constipation, fevers, or chills. ADULT DIET; Regular Patient Vitals for the past 96 hrs (Last 3 readings): Weight 08/06/21 0951 (!) 384 lb (174.2 kg) 24HR INTAKE/OUTPUT: Intake/Output Summary (Last 24 hours) at 08/09/2021 1228 Last data filed at 08/09/2021 0933 Gross per 24 hour Intake 5 ml Output Net 5 ml Past Medical History: Diagnosis Date Arthritis Chronic kidney disease COPD (chronic obstructive pulmonary disease) (HCC) Hyperlipidemia Hypertension Thyroid disease Medications: sodium chloride linezolid 600 mg Oral BID apixaban 5 mg Oral BID FLUoxetine 20 mg Oral Daily levothyroxine 175 mcg Oral Daily metoprolol tartrate 25 mg Oral BID QUEtiapine 200 mg Oral Daily sodium chloride flush 5-40 mL IntraVENous 2 times per day LABS: CBC: Recent Labs 08/07/2135608/08/2130108/09/21314 WBC 6.8 5.7 7.1 RBC 4.21 4.34 4.27 HGB 12.7 12.9 12.9 HCT 37.9 39.7 38.6 MCV 90.0 91.4 90.3 RDW 14.2 14.2 13.8 PLT 263 278 289 BMP: Recent Labs 08/07/2135608/08/2130108/09/21314 NA 136 138 137 K 3.6 4.6 4.7 CL 106 106 105 CO2 24 24 26 BUN 18 18 18 CREATININE 1.03 1.14 1.06 GLUCOSE 123* 114* 104* CALCIUM 8.9 9.1 9.1 ANIONGAP 6 8 6 LIVER PROFILE: Recent Labs 08/07/2135608/08/2130108/09/21 031 AST 28 25 24 ALT 18 20 21 BILITOT 0.4 0.3 0.4 ALKPHOS 73 81 76 LABALBU 3.6 3.6 3.4* PROT 6.8 6.8 6.6 PT/INR: No results for input(s): PROTIME, INR in the last 72 hours. CARDIAC ENZYMES: No results for input(s): TROPONINI in the last 72 hours. Procalcitonin: No results found for: PROCAL COVID-19 PCR: No results for input(s): COVID19 in the last 72 hours. Objective: Vitals: BP (!) 162/99 Pulse 69 Temp 98.2 F (36.8 C) (Temporal) Resp 16 Wt (!) 384 lb (174.2 kg) SpO2 93% BMI 55.10 kg/m Pulse Ox: SpO2 Av.5 % Min: 92 % Max: 93 % Supplemental O2: General appearance: No apparent distress, appears stated age and cooperative with exam HEENT: Normal cephalic, atraumatic without obvious deformity. Pupils equal, round, and reactive to light. Extra ocular muscles intact. Conjunctivae/corneas clear. Neck: Supple, with full range of motion. No jugular venous distention. Trachea midline. No lymphadenopathy. Respiratory: Normal respiratory effort. Clear to auscultation, bilaterally without Rales/Wheezes/Rhonchi. Cardiovascular: Regular rate and rhythm with normal S1/S2 without murmurs, rubs or gallops. Abdomen: Soft, non-tender, non-distended with normal bowel sounds. No rebound or guarding. Musculoskeletal: No clubbing, cyanosis or edema bilaterally. Full range of motion without deformity. Skin: Skin color, texture, turgor normal. No rashes or lesions. Neurologic: Neurovascularly intact without any focal sensory/motor deficits. Cranial nerves: II-XII intact, grossly non-focal. Assessment 1. Facial swelling and eyelid erythema likely secondary to preseptal cellulitis--> given the lack of chemosis, ophthalmoplegia, vision changes, and pain with eye movement, low suspicion for orbital cellulitis. CT of the maxofacial consistent with periorbital cellulitis of left orbit. Continue on vancomycin and Unasyn. Appreciate ENT recs and noted 2. History of DVT on Eliquis--> due to worsening swelling and pain lower extremity right worse than left, I will check a duplex of the bilateral lower extremities 3. Morbid obesity-BMI 55.10 4. Asthma 5. Depression 6. Hypertension 7. Hypothyroidism Plan -am labs, replace lytes prn -increase activity -DVT prophylaxis: [x] Lovenox [] Heparin [] SCDs [x] Encourage ambulation [] Already on Anticoagulation Advance Directive: Full Code Discharge planning: Anticipate discharge today on Linezolid until 08/12 Erika Melgar MD Division of Hospitalist Medicine Inpatient Medical Services PAGER: [phone] Images from the original note were not included. Hospitalist Progress Note 08/08/2021 12:38 PM [phone]: Please page me ([phone]) for patient care issues. [phone]: Please page [facility] night Hospitalist for any issues. Subjective: Admit Date: 08/06/2021 PCP: Chayo Hamilton MD Room#: 143/1432 Interval History: No overnight issues. Patient lying in bed no acute distress. States that her symptoms have improved. No visual change, diplopia, chemosis or pain with eye movement. Complains of lower extremity edema and pain at the bilateral legs. Worsening pain and swelling of the bilateral legs, I will check ultrasound denies chest pain, sob, abdominal pain, nausea, vomiting, diarrhea, constipation, fevers, or chills. ADULT DIET; Regular Patient Vitals for the past 96 hrs (Last 3 readings): Weight 08/06/21 0951 (!) 384 lb (174.2 kg) 24HR INTAKE/OUTPUT: No intake or output data in the 24 hours ending 08/08/21 1238 Past Medical History: Diagnosis Date Arthritis Chronic kidney disease COPD (chronic obstructive pulmonary disease) (HCC) Hyperlipidemia Hypertension Thyroid disease Medications: sodium chloride linezolid 600 mg Oral BID apixaban 5 mg Oral BID FLUoxetine 20 mg Oral Daily levothyroxine 175 mcg Oral Daily metoprolol tartrate 25 mg Oral BID QUEtiapine 200 mg Oral Daily sodium chloride flush 5-40 mL IntraVENous 2 times per day LABS: CBC: Recent Labs 08/06/21 1057 08/07/21 0357 08/08/21 0302 WBC 6.6 6.8 5.7 RBC 4.66 4.21 4.34 HGB 14.1 12.7 12.9 HCT 42.4 37.9 39.7 MCV 90.9 90.0 91.4 RDW 14.1 14.2 14.2 PLT 345 263 278 BMP: Recent Labs 08/06/21 1057 08/07/21 0357 08/08/21 0302 NA 138 136 138 K 3.8 3.6 4.6 CL 104 106 106 CO2 24 24 24 BUN 15 18 18 CREATININE 1.24 1.03 1.14 GLUCOSE 116* 123* 114* CALCIUM 9.3 8.9 9.1 ANIONGAP 10 6 8 LIVER PROFILE: Recent Labs 08/07/21 0357 08/08/21 0302 AST 28 25 ALT 18 20 BILITOT 0.4 0.3 ALKPHOS 73 81 LABALBU 3.6 3.6 PROT 6.8 6.8 PT/INR: No results for input(s): PROTIME, INR in the last 72 hours. CARDIAC ENZYMES: No results for input(s): TROPONINI in the last 72 hours. Procalcitonin: No results found for: PROCAL COVID-19 PCR: No results for input(s): COVID19 in the last 72 hours. Objective: Vitals: BP 112/71 Pulse 70 Temp 97.6 F (36.4 C) (Temporal) Resp 18 Wt (!) 384 lb (174.2 kg) SpO2 95% BMI 55.10 kg/m Pulse Ox: SpO2 Av % Min: 95 % Max: 95 % Supplemental O2: General appearance: No apparent distress, appears stated age and cooperative with exam HEENT: Normal cephalic, atraumatic without obvious deformity. Pupils equal, round, and reactive to light. Extra ocular muscles intact. Conjunctivae/corneas clear. Neck: Supple, with full range of motion. No jugular venous distention. Trachea midline. No lymphadenopathy. Respiratory: Normal respiratory effort. Clear to auscultation, bilaterally without Rales/Wheezes/Rhonchi. Cardiovascular: Regular rate and rhythm with normal S1/S2 without murmurs, rubs or gallops. Abdomen: Soft, non-tender, non-distended with normal bowel sounds. No rebound or guarding. Musculoskeletal: No clubbing, cyanosis or edema bilaterally. Full range of motion without deformity. Skin: Skin color, texture, turgor normal. No rashes or lesions. Neurologic: Neurovascularly intact without any focal sensory/motor deficits. Cranial nerves: II-XII intact, grossly non-focal. Assessment 1. Facial swelling and eyelid erythema likely secondary to preseptal cellulitis--> given the lack of chemosis, ophthalmoplegia, vision changes, and pain with eye movement, low suspicion for orbital cellulitis. CT of the maxofacial consistent with periorbital cellulitis of left orbit. Continue on vancomycin and Unasyn. Appreciate ENT recs and noted 2. History of DVT on Eliquis--> due to worsening swelling and pain lower extremity right worse than left, I will check a duplex of the bilateral lower extremities 3. Morbid obesity-BMI 55.10 4. Asthma 5. Depression 6. Hypertension 7. Hypothyroidism Plan -am labs, replace lytes prn -increase activity -DVT prophylaxis: [x] Lovenox [] Heparin [] SCDs [x] Encourage ambulation [] Already on Anticoagulation Advance Directive: Full Code Discharge planning: Anticipate discharge tomorrow on oral antibiotics pending continued clinical stability Erika Melgar MD Division of Hospitalist Medicine Inpatient Medical Services PAGER: [phone] Nutrition rescreen complete. Pt assigned a level one for nutrition care. Images from the original note were not included. Hospitalist Progress Note 08/07/2021 8:29 AM [phone]: Please page me ([phone]) for patient care issues. [phone]: Please page [facility] night Hospitalist for any issues. Subjective: Admit Date: 08/06/2021 PCP: Chayo Hamilton MD Room#: 07/02 Interval History: No overnight issues. Patient lying in bed no acute distress. States that symptoms on the right eyelid have improved but the left eyelid still remains the same. No visual change, diplopia, chemosis or pain with eye movement. Denies chest pain, sob, abdominal pain, nausea, vomiting, diarrhea, constipation, fevers, or chills. ADULT DIET; Regular Patient Vitals for the past 96 hrs (Last 3 readings): Weight 08/06/21 0951 (!) 384 lb (174.2 kg) 24HR INTAKE/OUTPUT: Intake/Output Summary (Last 24 hours) at 08/07/2021 0829 Last data filed at 08/06/2021 2148 Gross per 24 hour Intake 110 ml Output Net 110 ml Past Medical History: Diagnosis Date Arthritis Chronic kidney disease COPD (chronic obstructive pulmonary disease) (HCC) Hyperlipidemia Hypertension Thyroid disease Medications: sodium chloride apixaban 5 mg Oral BID FLUoxetine 20 mg Oral Daily levothyroxine 175 mcg Oral Daily metoprolol tartrate 25 mg Oral BID QUEtiapine 200 mg Oral Daily sodium chloride flush 5-40 mL IntraVENous 2 times per day ampicillin-sulbactam(UNASYN) 3000 mg IVPB 100ml add-vantage 3,000 mg IntraVENous Q8H vancomycin 1,500 mg IntraVENous Q12H LABS: CBC: Recent Labs 08/06/21 1057 08/07/21 0357 WBC 6.6 6.8 RBC 4.66 4.21 HGB 14.1 12.7 HCT 42.4 37.9 MCV 90.9 90.0 RDW 14.1 14.2 PLT 345 263 BMP: Recent Labs 08/06/21 1057 08/07/21 0357 NA 138 136 K 3.8 3.6 CL 104 106 CO2 24 24 BUN 15 18 CREATININE 1.24 1.03 GLUCOSE 116* 123* CALCIUM 9.3 8.9 ANIONGAP 10 6 LIVER PROFILE: Recent Labs 08/07/21 0357 AST 28 ALT 18 BILITOT 0.4 ALKPHOS 73 LABALBU 3.6 PROT 6.8 PT/INR: No results for input(s): PROTIME, INR in the last 72 hours. CARDIAC ENZYMES: No results for input(s): TROPONINI in the last 72 hours. Procalcitonin: No results found for: PROCAL COVID-19 PCR: No results for input(s): COVID19 in the last 72 hours. Objective: Vitals: BP (!) 140/76 Pulse 63 Temp 97.6 F (36.4 C) (Oral) Resp 20 Wt (!) 384 lb (174.2 kg) SpO2 92% BMI 55.10 kg/m Pulse Ox: SpO2 Av % Min: 92 % Max: 96 % Supplemental O2: General appearance: No apparent distress, appears stated age and cooperative with exam HEENT: Normal cephalic, atraumatic without obvious deformity. Pupils equal, round, and reactive to light. Extra ocular muscles intact. Conjunctivae/corneas clear. Neck: Supple, with full range of motion. No jugular venous distention. Trachea midline. No lymphadenopathy. Respiratory: Normal respiratory effort. Clear to auscultation, bilaterally without Rales/Wheezes/Rhonchi. Cardiovascular: Regular rate and rhythm with normal S1/S2 without murmurs, rubs or gallops. Abdomen: Soft, non-tender, non-distended with normal bowel sounds. No rebound or guarding. Musculoskeletal: No clubbing, cyanosis or edema bilaterally. Full range of motion without deformity. Skin: Skin color, texture, turgor normal. No rashes or lesions. Neurologic: Neurovascularly intact without any focal sensory/motor deficits. Cranial nerves: II-XII intact, grossly non-focal. Assessment 1. Facial swelling and eyelid erythema likely secondary to preseptal cellulitis--> given the lack of chemosis, ophthalmoplegia, vision changes, and pain with eye movement, low suspicion for orbital cellulitis. CT of the maxofacial consistent with periorbital cellulitis of left orbit. Continue on vancomycin and Unasyn. Will consult ENT Dr. Lance for further evaluation 2. History of DVT on Eliquis 3. Morbid obesity-BMI 55.10 4. Asthma 5. Depression 6. Hypertension 7. Hypothyroidism Plan -am labs, replace lytes prn -increase activity -DVT prophylaxis: [x] Lovenox [] Heparin [] SCDs [x] Encourage ambulation [] Already on Anticoagulation Advance Directive: Full Code Discharge planning: COURTNEY Melgar MD Division of Hospitalist Medicine Inpatient Medical Services PAGER: [phone] Pt stated she took all her morning and evening medications she brought from home. Informed patient from now forward not to take any of her home medications. Patient verbally understood. documented in this encounter [facility] Work Phone: documented in this encounter [facility] Work Phone: Evaluation note* Diagnosis Preseptal cellulitis of left upper eyelid- Primary Preseptal cellulitis of right upper eyelid Failure of outpatient treatment documented in this encounter [facility] Work Phone: Evaluation note* Diagnosis Pes cavus of right foot documented in this encounter [facility] Work Phone: Evaluation note* Diagnosis Primary osteoarthritis of both knees- Primary Chronic pain of right knee [facility] encounter [facility] Discharge instructions* Instructions* Cuco Koch MD - 08/05/2021 Please return to the Emergency Department immediately for new or worsening symptoms or any new concerns. This includes failure to begin to improve after 24 to 48 hours of antibiotics, or if symptoms progress despite antibiotics. Please follow-up with [your primary care doctor] in the next [2-3] days. * Attachments The following attachments cannot be sent through Care Everywhere. * Cellulitis ([place]amib[place]) [facility]: History of Present Illness * Vinny Vargas MD - 06/02/2019 9:43 AM EDT Medical Teaching Service Progress Note Patient: Jose Ardon : 1960 Acct: [id number] PCP: Chayo Hamilton MD Admitting Physician: Marilyn Cam MD Admission Date: 06/01/2019 Admitting Diagnosis: JESUS (acute kidney injury) ([facility]) [N17.9] Unit/Bed: 450/4501 Hospital Day: 1 Code Status: Full Code Subjective: Overnight events: None Patient was having echo done when I went to see her. Will reevaluate. Objective: Vitals: 06/01/19 2242 06/01/19 2256 06/02/19 0145 06/02/19 0739 BP: 118/64 (!) 150/97 128/75 Pulse: 80 81 71 Resp: 16 18 18 Temp: 98 F (36.7 C) 97.4 F (36.3 C) TempSrc: Temporal Temporal SpO2: 95% 94% 96% Weight: (!) 361 lb 6.4 oz (163.9 kg) No intake or output data in the 24 hours ending 06/02/19 0945 Physical Exam Not performed as pt getting echo done. Will re-evaluate. Diet: DIET RENAL; Medications: levothyroxine 175 mcg Oral Daily sodium chloride flush 10 mL Intravenous 2 times per day heparin (porcine) 5,000 Units Subcutaneous 3 times per day FLUoxetine 20 mg Oral Daily buPROPion 150 mg Oral BID Continuous Infusions: PRN Meds:acetaminophen, sodium chloride flush, ondansetron, perflutren lipid microspheres, sodium chloride flush Labs: Recent Results (from the past 24 hour(s)) Hemogram (CBC) w/Auto Diff Collection Time: 06/01/19 6:44 PM Result Value Ref Range WBC 12.1 (H) 3.6 - 10.7 10*3/uL RBC 4.11 3.80 - 5.20 10*6/uL Hemoglobin 12.7 11.7 - 16.0 g/dL Hematocrit 37.0 35.0 - 47.0 % MCV 89.8 79.0 - 98.0 fL MCH 30.8 26.0 - 34.0 pg MCHC 34.2 32.0 - 36.0 % RDW 14.3 11.5 - 14.5 % Platelets 341 140 - 440 10*3/uL MPV 8.4 7.4 - 10.4 fL Granulocytes % 76.9 40.0 - 80.0 % Lymphocyte % 13.4 (L) 20.0 - 40.0 % Monocytes 7.5 2.0 - 10.0 % Eosinophils 0.9 (L) 1.0 - 6.0 % Basophils 1.3 0.0 - 2.0 % Absolute Neut # 9.3 (H) 1.8 - 7.0 10*3/uL Absolute Lymph # 1.6 1.0 - 4.3 10*3/uL Absolute Worth # 0.9 (H) 0.0 - 0.8 10*3/uL Absolute Eos # 0.1 0.0 - 0.5 10*3/uL Absolute Baso # 0.2 0.0 - 0.2 10*3/uL Basic Metabolic Panel Collection Time: 06/01/19 6:44 PM Result Value Ref Range Sodium 138 135 - 145 mmol/L Potassium 3.3 (L) 3.5 - 5.1 mmol/L Chloride 101 98 - 107 mmol/L CO2 25 22 - 30 mmol/L Anion Gap 11 NA Glucose 106 (H) 70 - 100 mg/dL BUN 32 (H) 7 - 20 mg/dL CREATININE 2.39 (H) 0.52 - 1.25 mg/dL eGFR 25.3 >60 mL/min EGFR IF NonAfrican Haitian 20.8 >60 mL/min Calcium 9.4 8.4 - 10.4 mg/dL Hepatic Function Panel Collection Time: 06/01/19 6:44 PM Result Value Ref Range Albumin,Serum 4.1 3.5 - 5.0 g/dL Total Protein 7.8 6.3 - 8.2 g/dL Total Bilirubin 0.6 0.2 - 1.3 mg/dL Bilirubin, Direct 0.0 0.0 - 0.3 mg/dL Alkaline Phosphatase 83 38 - 126 U/L ALT 23 13 - 69 U/L AST 55 (H) 15 - 46 U/L Urinalysis Collection Time: 06/02/19 1:53 AM Result Value Ref Range Glucose, Ur Normal mg/dL Total Protein, Urine 10 mg/dL Bilirubin Urine Negative mg/dL Urobilinogen, Urine Normal mg/dL pH, Urine 5.5 5.0 - 8.0 NA Specific [place], Urine 1.015 1.005 - 1.030 NA Occult Blood,Urine Negative mg/dL Ketones, Urine Negative mg/dL Nitrite, Urine Negative NA LEUKOCYTES, UA 75 Veronica/uL Appearance Clear NA Color, Urine Yellow NA RBC, UA 0-2 /[HPF] WBC, UA 6-10 /[HPF] Squam Epithel, UA 3-5 /[HPF] Bacteria, UA Few /[HPF] Mucous Threads Few /[LPF] Basic Metabolic Panel w/ Reflex to MG Collection Time: 06/02/19 1:53 AM Result Value Ref Range Sodium 137 135 - 145 mmol/L Potassium 3.5 3.5 - 5.1 mmol/L Chloride 102 98 - 107 mmol/L CO2 26 22 - 30 mmol/L Anion Gap 9 NA Glucose 105 (H) 70 - 100 mg/dL BUN 35 (H) 7 - 20 mg/dL CREATININE 2.00 (H) 0.52 - 1.25 mg/dL eGFR 31.0 >60 mL/min EGFR IF NonAfrican Haitian 25.6 >60 mL/min Calcium 8.9 8.4 - 10.4 mg/dL Magnesium Collection Time: 06/02/19 1:53 AM Result Value Ref Range Magnesium 2.3 1.6 - 2.3 mg/dL Phosphorus Collection Time: 06/02/19 1:53 AM Result Value Ref Range Phosphorus 4.5 2.5 - 4.5 mg/dL CBC auto differential Collection Time: 06/02/19 1:53 AM Result Value Ref Range WBC 8.1 3.6 - 10.7 10*3/uL RBC 3.81 3.80 - 5.20 10*6/uL Hemoglobin 11.8 11.7 - 16.0 g/dL Hematocrit 34.7 (L) 35.0 - 47.0 % MCV 91.1 79.0 - 98.0 fL MCH 31.0 26.0 - 34.0 pg MCHC 34.0 32.0 - 36.0 % RDW 14.2 11.5 - 14.5 % Platelets 297 140 - 440 10*3/uL MPV 8.8 7.4 - 10.4 fL Granulocytes % 59.5 40.0 - 80.0 % Lymphocyte % 28.4 20.0 - 40.0 % Monocytes 8.8 2.0 - 10.0 % Eosinophils 2.4 1.0 - 6.0 % Basophils 0.9 0.0 - 2.0 % Absolute Neut # 4.8 1.8 - 7.0 10*3/uL Absolute Lymph # 2.3 1.0 - 4.3 10*3/uL Absolute Worth # 0.7 0.0 - 0.8 10*3/uL Absolute Eos # 0.2 0.0 - 0.5 10*3/uL Absolute Baso # 0.1 0.0 - 0.2 10*3/uL Sodium, Urine, Random Collection Time: 06/02/19 1:53 AM Result Value Ref Range SODIUM, RANDOM URINE 28 No Range mmol/L Creatinine, Random Urine Collection Time: 06/02/19 1:53 AM Result Value Ref Range CREATININE, RANDOM URINE 178.3 No Range mg/dL Hemoglobin A1C Collection Time: 06/02/19 1:53 AM Result Value Ref Range Hemoglobin A1C 5.4 4.0 - 5.7 % eAG 108 mg/dL TSH without Reflex Collection Time: 06/02/19 1:53 AM Result Value Ref Range TSH 6.924 (H) 0.465 - 4.680 u[IU]/mL T4 Collection Time: 06/02/19 5:45 AM Result Value Ref Range Thyroxine (T4) 6.6 5.5 - 11.0 ug/dL ASSESSMENT/PLAN: Active Hospital Problems Diagnosis JESUS (acute kidney injury) (HCC) [N17.9] 1. Bilateral Lower Extremity Edema 2/2 Likely Stage 2 JESUS 2/2 unknown etiology likely from NSAID use FeNa 0.2% - Daily CBC and BMP - F/u Renal US - F/u ECHO - I/Os - Tylenol prn pain - Zofran prn nausea - Will avoid nephrotoxic meds and renally dose - No lasix or MARYAM/ARB - Monitor for improvement HTN Controlled currently w/o medication - Hold Maxzide (home dose 75-50) due to JESUS - Hold Norvasc 10 mg PO daily d/t LE edema - Labetolol prn SBP >180 - Consider resuming home BP meds upon dc Depression - Continue Prozac 20 mg PO daily - Continue Wellbutrin 150 mg PO BID Hypothyroidism TSH wnl, T4 wnl - Continue Synthroid 175 mcg PO daily FEN/GI/DVT: IVF: NS @ 100 cc/hr Electrolytes: Monitor and replace per protocols Diet: Renal GI PPX: No DVT Prophylaxis: Subcutaneous heparin DISPOSITION: F/u echo, renal u/s. Monitor BP. If LE edema continues, consider outpatient workup with nephro. Anticipate discharge within 24 hours. Agree Vinny Vargas 06/02/2019 3:42 PM documented in this encounter* Kristin Marin RN - 06/25/2019 1:22 PM EDT Pt given discharge instructions. Pt verbalizes understanding and has no further questions at this time. * Maliha Vasques - 06/25/2019 10:13 AM EDT [facility] Anticoagulation Management Service ([facility]) Inpatient Warfarin Consult HPI: Jose Ardon is a 59 y.o. female admitted on 06/12/2019 for <principal problem not specified>. Past Medical History: Diagnosis Date Arthritis Chronic kidney disease COPD (chronic obstructive pulmonary disease) (HCC) Hyperlipidemia Hypertension Thyroid disease Patient is newly referred to the [facility] clinic for warfarin management. Pt was referred by Dr. De La Cruz.Pt is on warfarin for DVT and has a goal INR 2.0 - 3.0 . Duration of therapy= TBD. PCP: Chayo Hamilton MD S/sx of bleeding= blood tinged stools (colonoscopy showed internal hemorrhoids) Interacting medications= tramadol, heparin gtt, levothyroxine (home) Labs: Recent Labs 06/23/19 0437 06/23/19 1912 06/24/19 0327 06/25/19 0119 HGB 10.4* 10.0* 10.1* -- HCT 31.2* 29.6* 30.3* -- PLT 426 -- 453* 447* Recent Labs 06/25/19 0703 INR 2.1* Date INR Dose 06/25 2.1 10 mg 06/24 1.5 15mg 06/23 1.3 15mg 06/22 1.5 15mg 06/21 1.8 HOLD 06/20 2.0 HOLD 06/19 1.5 15mg 06/18 1.1 15mg 06/17 1.1 10mg 06/16 1.0 10mg 06/15 1.0 7.5mg 06/14 1.0 5mg 06/13 1.0 5mg Assessment/Plan: 1. INR is therapeutic. Will give 10 mg today due to the large increase in INR since yesterday. Remains on heparin drip until 2 consecutive INR values are within goal. 2. Will monitor for s/s of bleeding and drug interactions and adjust dose accordingly. 3. Recommended to the patient that if she is discharged today that she should get her INR checked via home care tomorrow. Maliha Vasques, PharmD Candidate Hugo RasmussenD, [facility] Consult Service available [phone] daily via [employer] or page Pager# [phone] * Jen Gilman RN - 06/24/2019 2:18 PM EDT Aptt back at 78.3 Continue same rate at 31 cc/hr. Redraw 1830 * April Nguyen, PT - 06/24/2019 2:08 PM EDT Physical Therapy PT tx re-attempted. Patient reports feet are too painful to attempt standing at this time and she is not due for pain medication for a couple more hours. She states that she did walk a little this morning after receiving pain medication. * Emma Mcneill RD, LD - 06/24/2019 10:18 AM EDT Nutrition Assessment Type and Reason for Visit: Initial, Positive Nutrition Screen(N/V) Nutrition Recommendations: 1. Recommend continue on diet as currently ordered, patient is currently ordered CHO Controlled Diet which is appropriate to aide in weight management, pt does not have noted DM history. Can consider Cardiac Diet restrictions related to history of HLD/HTN and pt with current BLE +2 edema. Pt denies educational needs, denies questions for RD, denies issues with meals, denies N/V as per consult so will assign patient to a Level 1 and refer to the dietitian assistant for continued monitoring. Dietitian is available as needed per re-consult. Nutrition Assessment: pt is resting in chair playing on her phone, pt admitted due to BLE swelling,pt is currently receiving a CHO Controlled Diet, she was being followed by the dietitian assistant but RN putin a consult yesterday due to N/V, spoke with pt who denies this ever being the case, pt states sheis tolerating her meals and eating 100%, denies issues with ordering meals on CHO Controlled Diet, pt does not have DM history noted but she is obese BMI >40, pt lives with her boyfriend [employer], she denies food allergies and has no chewing/swallowing issues, pt denies educational needs and is hopeful for d/c soon, pt had 1 episode of rectal bleeding during admit and went for a colonoscopy on 06/17which showed polyps which were removed, pt is currently awaiting for her INR level to be between 2.0-3.0 then she can be discharged Malnutrition Assessment: Malnutrition Status: No malnutrition Nutrition Risk Level: Low Nutrient Needs: Estimated Daily Total Kcal: 1818-2036kcals/day Estimated Daily Protein (g): 73-87gm pro/day Estimated Daily Total Fluid (ml/day): per MD Recommendations Nutrition Diagnosis: Problem: Overweight/Obese Etiology: related to (multifactoral/lifestyle) ? Signs and symptoms: as evidenced by BMI Objective Information: Nutrition-Focused Physical Findings: Ariel = 20, skin intact, active bowel sounds, BM /, upper and lower partials, BLE +2 edema, lives with boyfriend [employer] Wound Type: None Current Nutrition Therapies: Oral Diet Orders: Carb Control 5 Carbs/Meal Oral Diet intake: 76-100% Oral Nutrition Supplement (ONS) Orders: None ONS intake: (no supplement ordered) Anthropometric Measures: Ht: 6' (182.9 cm) Current Body Wt: 361 lb (163.7 kg)(no method 06/23) Admission Body Wt: 361 lb (163.7 kg)(stated 06/12) Usual Body Wt: 360 lb (163.3 kg)(stable per pt) per pt weight is stable [employer]. Bruno Body Wt: 160 lb 4.4 oz (72.7 kg), % Bruno Body 226% BMI Classification: BMI > or equal to 40.0 Obese Class III Nutrition Interventions: Continue current diet Continued Inpatient Monitoring, Education declined(will sign off to dietitian assistant ) Contact Number: pager x [phone] * April Nguyen PT - 06/24/2019 9:48 AM EDT Physical Therapy PT tx attempted. Patient states she is waiting for nursing to bring pain medication. She requests to begin PT after she has pain medication. * Jovani Koroma MD - 06/24/2019 9:47 AM EDT [facility] Progress Note 06/24/2019 09:47 AM Name: Jose Ardon IP Day: 8 Admit Date: 06/12/2019 4:44 PM PCP: Chayo Hamilton MD Code Status: Full Code Subjective: No complains. No new episodes of clots in stool. Physical Examination: Vitals: BP 127/70 Pulse 75 Temp 98.1 F (36.7 C) (Oral) Resp 16 Ht 6' (1.829 m) Wt (!) 361 lb (163.7 kg) SpO2 94% BMI 48.96 kg/m Temp (24hrs), Av F (36.7 C), Min:97.8 F (36.6 C), Max:98.1 F (36.7 C) General appearance: alert, cooperative and no distress Lungs: clear to auscultation bilaterally, normal effort Heart: regular rate and rhythm, no murmur Abdomen: soft, nontender, nondistended, bowel sounds present, no masses Extremities: no edema, redness, tenderness in the calves Skin: no gross lesions, rash Mental Status: oriented to person, place and time and normal affect Data: I/O (24Hr): Intake/Output Summary (Last 24 hours) at 06/24/2019 2147 Last data filed at 06/24/2019 0829 Gross per 24 hour Intake 760 ml Output Net 760 ml Labs: Recent Labs 06/22/19205806/23/19 0437 06/23/19 1912 06/24/19 0327 WBC 7.7 -- -- -- HGB 10.5* 10.4* 10.0* 10.1* PLT 440 426 -- 453* Results for JOSE ARDON ( ) as of 06/24/2019 21:49 Ref. Range 06/23/2019 04:37 06/24/2019 03:27 INR Latest Ref Range: 0.9 - 1.1 NA 1.3 (H) 1.5 (H) Reviewed all pertinent Labs and Radiology reports Assessment and Plan: Acute problems: # b/l DVT - c/w Hep gtt - warfarin 15 mg today - switch off hep gtt after INR therapeutic range . - Lovenox is discouraged for pt's over 150kg per [facility] protocol # BRBPR - 1 episode, small amount on 06/20 without recurrence. GI evaluation completed and they signed off. Colonoscopy 06/17/2019 with polypectomy Chronic problems: Diagnosis Date Arthritis Chronic kidney disease COPD (chronic obstructive pulmonary disease) (HCC) Hyperlipidemia Hypertension Thyroid disease Chronic problem plans: - c/w current meds DISPO: - home when INR is therapeutic * Maliha Vasques - 06/24/2019 8:34 AM EDT [facility] Anticoagulation Management Service ([facility]) Inpatient Warfarin Consult HPI: Jose Ardon is a 59 y.o. female admitted on 06/12/2019 for <principal problem not specified>. Past Medical History: Diagnosis Date Arthritis Chronic kidney disease COPD (chronic obstructive pulmonary disease) (HCC) Hyperlipidemia Hypertension Thyroid disease Patient is newly referred to the [facility] clinic for warfarin management. Pt was referred by Dr. De La Cruz.Pt is on warfarin for DVT and has a goal INR 2.0 - 3.0 . Duration of therapy= TBD. PCP: Chayo Hamilton MD S/sx of bleeding= blood tinged stools (colonoscopy showed internal hemorrhoids) Interacting medications= tramadol, heparin gtt, levothyroxine (home) Labs: Recent Labs 06/22/19 2059 06/23/19 0437 06/23/19 1912 06/24/19 0327 HGB 10.5* 10.4* 10.0* 10.1* HCT 30.7* 31.2* 29.6* 30.3* PLT 440 426 -- 453* Recent Labs 06/24/19 0327 INR 1.5* Date INR Dose 06/24 1.5 15mg 06/23 1.3 15mg 06/22 1.5 15mg 06/21 1.8 HOLD 06/20 2.0 HOLD 06/19 1.5 15mg 06/18 1.1 15mg 06/17 1.1 10mg 06/16 1.0 10mg 06/15 1.0 7.5mg 06/14 1.0 5mg 06/13 1.0 5mg Assessment/Plan: 1. INR is subherapeutic today due to held doses. Will give 15 mg today due to patient requiring larger doses prior to held doses. Remains on heparin drip while subtherapeutic. 2. Will monitor for s/s of bleeding and drug interactions and adjust dose accordingly. 3. Will facilitate [facility] follow-up upon discharge. Maliha Vasques, PharmD Candidate Hugo RasmussenD, [facility] Consult Service available [phone] daily via [employer] or page Pager# [phone] * Anastasia Valadez RPH - 06/23/2019 8:11 AM EDT [facility] Anticoagulation Management Service ([facility]) Inpatient Warfarin Consult HPI: Jose Ardon is a 59 y.o. female admitted on 06/12/2019 for <principal problem not specified>. Past Medical History: Diagnosis Date Arthritis Chronic kidney disease COPD (chronic obstructive pulmonary disease) (HCC) Hyperlipidemia Hypertension Thyroid disease Patient is newly referred to the [facility] for warfarin management. Pt was referred by Dr. De La Cruz.Pt is on warfarin for DVT and has a goal INR 2.0 - 3.0 . Duration of therapy= TBD. PCP: Chayo Hamilton MD S/sx of bleeding= blood tinged stools (colonoscopy showed internal hemorrhoids) Interacting medications= tramadol, heparin gtt, levothyroxine (home) Labs: Recent Labs 06/21/19 2040 06/22/19 1346 06/22/19205806/23/19 0437 HGB 10.9* < > 10.6* 10.5* 10.4* HCT 32.0* < > 31.0* 30.7* 31.2* PLT 433 -- -- 440 426 < > = values in this interval not displayed. Recent Labs 06/23/19 0437 INR 1.3* Date INR Dose 06/23 1.3 15mg 06/22 1.5 15mg 06/21 1.8 HOLD 06/20 2.0 HOLD 06/19 1.5 15mg 06/18 1.1 15mg 06/17 1.1 10mg 9/24 1.0 10mg 06/15 1.0 7.5mg 06/14 1.0 5mg 06/13 1.0 5mg Assessment/Plan: 1. INR is subherapeutic today due to held doses. Will give 15 mg today due to patient requiring larger doses prior to held doses. Remains on heparin drip while subtherapeutic. 2. Will monitor for s/s of bleeding and drug interactions and adjust dose accordingly. 3. Will facilitate [facility] follow-up upon discharge. Anastasia Valadez PharmD [facility] Consult Service available [phone] daily via [employer] or page Pager# [phone] * Jovani Koroma MD - 06/23/2019 7:54 AM EDT [facility] Progress Note 06/23/2019 7:54 AM Name: Jose Ardon IP Day: 8 Admit Date: 06/12/2019 4:44 PM PCP: Chayo Hamilton MD Code Status: Full Code Subjective: No complains. No new episodes of clots in stool. Physical Examination: Vitals: BP 133/67 Pulse 66 Temp 97.8 F (36.6 C) (Temporal) Resp 17 Ht 6' (1.829 m) Wt (!) 361 lb (163.7 kg) SpO2 97% BMI 48.96 kg/m Temp (24hrs), Av.5 F (36.4 C), Min:96.5 F (35.8 C), Max:98.1 F (36.7 C) General appearance: alert, cooperative and no distress Lungs: clear to auscultation bilaterally, normal effort Heart: regular rate and rhythm, no murmur Abdomen: soft, nontender, nondistended, bowel sounds present, no masses Extremities: no edema, redness, tenderness in the calves Skin: no gross lesions, rash Mental Status: oriented to person, place and time and normal affect Data: I/O (24Hr): No intake or output data in the 24 hours ending 06/24/19 0754 Labs: Recent Labs 06/21/19203906/22/19205806/23/19 0437 06/23/19 1912 06/24/19 0327 WBC 7.6 -- 7.7 -- -- -- HGB 10.9* < > 10.5* 10.4* 10.0* 10.1* PLT 433 -- 440 426 -- 453* < > = values in this interval not displayed. Reviewed all pertinent Labs and Radiology reports Assessment and Plan: Acute problems: # b/l DVT - c/w Hep gtt - warfarin daily . 15 mg doses for now until INR starts to shift - switch off hep gtt after 2 INR therapeutic range . # BRBPR - 1 episode, small amount on 06/20 without recurrence. GI evaluation completed and they signed off. Colonoscopy 06/17/2019 with polypectomy Chronic problems: Diagnosis Date Arthritis Chronic kidney disease COPD (chronic obstructive pulmonary disease) (HCC) Hyperlipidemia Hypertension Thyroid disease Chronic problem plans: - c/w current meds DISPO: - home when INR is therapeutic * Jovani Koroma MD - 06/22/2019 3:13 PM EDT [facility] Progress Note 06/22/2019 3:14 PM Name: Jose Ardon IP Day: 6 Admit Date: 06/12/2019 4:44 PM PCP: Chayo Hamilton MD Code Status: Full Code Subjective: No complains. No new episodes of clots in stool. Physical Examination: Vitals: BP (!) 141/80 Pulse 64 Temp 97.4 F (36.3 C) (Oral) Resp 16 Ht 6' (1.829 m) Wt (!) 361 lb (163.7 kg) SpO2 95% BMI 48.96 kg/m Temp (24hrs), Av.7 F (36.5 C), Min:97.4 F (36.3 C), Max:97.9 F (36.6 C) General appearance: alert, cooperative and no distress Lungs: clear to auscultation bilaterally, normal effort Heart: regular rate and rhythm, no murmur Abdomen: soft, nontender, nondistended, bowel sounds present, no masses Extremities: no edema, redness, tenderness in the calves Skin: no gross lesions, rash Mental Status: oriented to person, place and time and normal affect Data: I/O (24Hr): No intake or output data in the 24 hours ending 06/22/19 1514 Labs: Recent Labs 06/21/19 2040 06/22/19 0152 06/22/19 1346 WBC 7.6 -- -- HGB 10.9* 10.7* 10.6* PLT 433 -- -- Reviewed all pertinent Labs and Radiology reports Assessment and Plan: Acute problems: # b/l DVT - Was on Lovenox 150mg bid brdiged to warfarin till she had rectal clots yesterday . - switched to hep gtt and warfarin held. INR started to drop from 2 - Pharmacy notified me on [facility] policy to avoid using lovenox on anyone above 150kg after Hep gtt was switched off. This was never mentioned prior. Will discuss with pt and RN before switching back to Hep gtt again until INR is over 2 for 24 hrs. # BRBPR - 1 episode, small amount on 06/20 without recurrence. GI evaluation completed and they signed off. Colonoscopy 06/17/2019 with polypectomy Chronic problems: Diagnosis Date Arthritis Chronic kidney disease COPD (chronic obstructive pulmonary disease) (HCC) Hyperlipidemia Hypertension Thyroid disease Chronic problem plans: - c/w current meds DISPO: - home when INR is therapeutic * Ofe Miles, [facility] - 06/22/2019 1:56 PM EDT [facility] Anticoagulation Management Service ([facility]) Inpatient Warfarin Consult HPI: Jose Ardon is a 59 y.o. female admitted on 06/12/2019 for <principal problem not specified>. Past Medical History: Diagnosis Date Arthritis Chronic kidney disease COPD (chronic obstructive pulmonary disease) (HCC) Hyperlipidemia Hypertension Thyroid disease Patient is newly referred to the [facility] clinic for warfarin management. Pt was referred by Dr. De La Cruz.Pt is on warfarin for DVT and has a goal INR 2.0 - 3.0 . Duration of therapy= TBD. PCP: Chayo Hamilton MD S/sx of bleeding= blood tinged stools (colonoscopy showed internal hemorrhoids) Interacting medications= tramadol, heparin gtt, levothyroxine (home) Labs: Recent Labs 06/21/19 1333 06/21/19 2040 06/22/19 0152 HGB 10.7* 10.9* 10.7* HCT 31.4* 32.0* 32.3* PLT -- 433 -- Recent Labs 06/22/19 0152 INR 1.5* Date INR Dose 06/22 1.5 15 mg 06/21 1.8 HOLD 06/20 2.0 HOLD 06/19 1.5 15mg 06/18 1.1 15mg 06/17 1.1 10mg 06/16 1.0 10mg 06/15 1.0 7.5mg 06/14 1.0 5mg 06/13 1.0 5mg Assessment/Plan: 1. INR is subherapeutic today due to held doses. Will give 15 mg today due to patient requiring larger doses prior to held doses. 2. Will monitor for s/s of bleeding and drug interactions and adjust dose accordingly. 3. Will facilitate [facility] follow-up upon discharge. Ofe Miles PharmD [facility] Consult Service available [phone] daily via [employer] or page Pager# [phone] * Nafisa Vieira [facility] - 06/21/2019 1:47 PM EDT [facility] Anticoagulation Management Service ([facility]) Inpatient Warfarin Consult HPI: Jose Ardon is a 59 y.o. female admitted on 06/12/2019 for <principal problem not specified>. Past Medical History: Diagnosis Date Arthritis Chronic kidney disease COPD (chronic obstructive pulmonary disease) (HCC) Hyperlipidemia Hypertension Thyroid disease Patient is newly referred to the [facility] clinic for warfarin management. Pt was referred by Dr. De La Cruz.Pt is on warfarin for DVT and has a goal INR 2.0 - 3.0 . Duration of therapy= TBD. PCP: Chyao Hamilton MD S/sx of bleeding= blood tinged stools (colonoscopy showed internal hemorrhoids) Interacting medications= lovenox, levothyroxine (home) Labs: Recent Labs 06/19/19 0611 06/20/19 1727 06/21/19 0521 06/21/19 1333 HGB 11.1* 11.2* 11.1* 10.7* HCT 32.7* 33.2* 33.4* 31.4* PLT 414 -- -- -- Recent Labs 06/21/19 0521 INR 1.8* Date INR Dose 06/21 1.8 HOLD 06/20 2.0 HOLD 06/19 1.5 15mg 06/18 1.1 15mg 06/17 1.1 10mg 06/16 1.0 10mg 06/15 1.0 7.5mg 06/14 1.0 5mg 06/13 1.0 5mg Assessment/Plan: 1. INR is subherapeutic today. Held yesterday per Dr. Fox due to rectal bleeding and clots. Holding again today. Will follow and resume per Internal Medicine instructions. 2. Will monitor for s/s of bleeding and drug interactions and adjust dose accordingly. 3. Will facilitate [facility] follow-up upon discharge. 4. Continue Lovenox bridge until INR therapeutic for 2 consecutive readings 24h apart. Thank you for this consult. Nafisa Vieira PharmD [facility] Consult Service available [phone] daily via [employer] or page Pager# [phone] * Joy Fox MD - 06/21/2019 8:19 AM EDT DAILY PROGRESS NOTE Name: Jose Ardon RN: [id number] Admit Date: 06/12/2019 4:44 PM Visit status: Admission PCP: Chayo Hamilton MD Code status:Full Code Subjective: Patient seen and examined. Denied any complains this morning. Yesterday afternoon had blood clots when she had BM. She said there was just scant when she had BM this morning when No chest pain,SOB, palpitation No fever No headache, dizziness No frequency, urgency, dysuria No diarrhoea, vomiting or abdominal pain PHYSICAL EXAM: Blood pressure 134/70, pulse 61, temperature 96.7 F (35.9 C), temperature source Temporal, resp. rate 18, height 6' (1.829 m), weight (!) 361 lb (163.7 kg), SpO2 99 %. General appearance: No apparent distress HEENT: AT/NC Neck: No jugular venous distention Respiratory: Normal respiratory effort. Clear to auscultation, bilaterally without Rales/Wheezes/Rhonchi. Cardiovascular: Regular rate and rhythm with normal S1/S2 without murmurs, rubs or gallops. Abdomen: Soft, non-tender, non-distended with normal bowel sounds. Musculoskeletal: No clubbing, cyanosis or edema bilaterally Skin: No rashes or lesions. Neurologic: Neurovascularly intact without any focal sensory/motor deficits. Cranial nerves: II-XIIintact, grossly non-focal. MEDICATIONS Current Facility-Administered Medications Medication Dose Route Frequency Provider Last Rate Last Dose 0.9 % sodium chloride infusion Intravenous Continuous Joy Fox MD 100 mL/hr at 06/21/19 0600 pantoprazole (PROTONIX) injection 40 mg 40 mg Intravenous BID Joy Fox MD 40 mg at 06/20/192135 And sodium chloride (PF) 0.9 % injection 10 mL 10 mL Intravenous BID Joy Fox MD 10 mL at 06/20/192135 levothyroxine (SYNTHROID) tablet 175 mcg 175 mcg Oral Daily Joy Fox MD 175 mcg at 06/21/19 0751 sodium chloride (PF) 0.9 % injection 10 mL 10 mL Intravenous PRN Yany Mendes PA-C metoprolol tartrate (LOPRESSOR) tablet 25 mg 25 mg Oral BID Joy Fox MD 25 mg at 06/20/192136 traMADol (ULTRAM) tablet 50 mg 50 mg Oral Q6H PRN Cedrick De La Cruz MD 50 mg at 06/21/19 0447 sodium chloride flush 0.9 % injection 10 mL 10 mL Intravenous 2 times per day Cedrick De La Cruz MD 10 mL at 06/20/192136 sodium chloride flush 0.9 % injection 10 mL 10 mL Intravenous PRN Cedrick De La Cruz MD magnesium hydroxide (MILK OF MAGNESIA) 400 MG/5ML suspension 30 mL 30 mL Oral Daily PRN Cedrick De La Cruz MD ondansetron (ZOFRAN) injection 4 mg 4 mg Intravenous Q6H PRN Cedrick De La Cruz MD 4 mg at 06/14/19 0917 hydrALAZINE (APRESOLINE) injection 10 mg 10 mg Intravenous Q6H PRN Cedrick De La Cruz MD oxyCODONE-acetaminophen (PERCOCET) 5-325 MG per tablet 1 tablet 1 tablet Oral Q4H PRN Cedrick De La Cruz MD 1 tablet at 06/21/19 0617 sodium chloride flush 0.9 % injection 3 mL 3 mL Intravenous Q8H Jorge Alberto Cardenas MD 3 mL at 216 ondansetron (ZOFRAN) injection 4 mg 4 mg Intravenous Once Tamy Ruben, [employer] DATA: I/O (24Hr): Intake/Output Summary (Last 24 hours) at 06/21/2019 0820 Last data filed at 06/21/2019 0600 Gross per 24 hour Intake 3124 ml Output 800 ml Net 2324 ml Labs: Recent Labs 06/19/19 0611 06/20/19 1727 06/21/19 0521 WBC 6.4 -- -- HGB 11.1* 11.2* 11.1* PLT 414 -- -- Recent Labs 06/19/19 0610 NA 137 K 4.1 CL 103 CO2 29 BUN 14 CREATININE 0.87 GLUCOSE 87 No results for input(s): AST, ALT, ALB, BILITOT, ALKPHOS in the last 72 hours. Reviewed all pertinent Labs and Radiology reports ASSESSMENT AND PLAN: 1. GI bleed S/P Colonoscopy by Dr. Harley on 06/17/2019, internal hemorrhoids were seen, no bleeding.. GI re consulted as patient had blood clots yesterday afternoon. Will continue to monitor H and H, watch for bleed, C/W GI recommendations. 2. . B/L DVT Lovenox, OAC was stopped on 2019 because of Blood clots. D/W Dr. Monique. Will place her on heparin gtt, if she doesnot bleed further, Hb remains stable, will resume coumdain, stop gtt once INR > 2.0 . 3. JESUS Resolved. 4. HTN C/W metoprolol. 5. Anemia Hb stable. C/W monitoring. 6. Morbid Obesity 7. Debility Patient denied at [facility] by her insurance provider. Will D/C her home with [facility] once INR therapeutic, stops bleeding and Hb stable. 8. DVT/GI Prophylaxis Addressed. Joy Fox MD Pager- [phone] Date of Service: 06/21/19 Time of Service: 8:20 AM * Vinita Bearden, RN - 2019 6:42 PM EDT Pt urinated on BSC and passed moderate amt of blood with some small clots from rectum. DR. Cifuenteslinotified. Pt now NPO, IV restarted and Hgb drawn. Pt denies any pain. All anticoagulants discontinued. Hgb results show no drop in blood count. Will continue to montor. VS also stable. GI consulted again. * Nafisa Vieira [facility] - 2019 10:53 AM EDT [facility] Anticoagulation Management Service ([facility]) Inpatient Warfarin Consult HPI: Jose Ardon is a 59 y.o. female admitted on 06/12/2019 for <principal problem not specified>. Past Medical History: Diagnosis Date Arthritis Chronic kidney disease COPD (chronic obstructive pulmonary disease) (HCC) Hyperlipidemia Hypertension Thyroid disease Patient is newly referred to the [facility] for warfarin management. Pt was referred by Dr. De La Cruz.Pt is on warfarin for DVT and has a goal INR 2.0 - 3.0 . Duration of therapy= TBD. PCP: Chayo Hamilton MD S/sx of bleeding= blood tinged stools (colonoscopy showed internal hemorrhoids) Interacting medications= lovenox, levothyroxine (home) Labs: Recent Labs 06/18/19 0504 06/19/19 0611 HGB 10.8* 11.1* HCT 32.1* 32.7* PLT 409 414 Recent Labs 06/20/19 0649 INR 2.0* Date INR Dose 06/20 2.0 12.5mg 06/19 1.5 15mg 06/18 1.1 15mg 06/17 1.1 10mg 06/16 1.0 10mg 06/15 1.0 7.5mg 06/14 1.0 5mg 06/13 1.0 5mg Assessment/Plan: 1. INR is Therapeutic today. Finally seeing some movement in INR after 15mg dose x2. Expecting INR to continue to increase. Will give 12.5mg today. 2. Will monitor for s/s of bleeding and drug interactions and adjust dose accordingly. 3. Will facilitate [facility] follow-up upon discharge. 4. Continue Lovenox bridge until INR therapeutic for 2 consecutive readings 24h apart. Thank you for this consult. Nafisa Vieira PharmD [facility] Consult Service available [phone] daily via [employer] or page Pager# [phone] * Joy Fox MD - 2019 7:56 AM EDT DAILY PROGRESS NOTE Name: Jose Ardon RN: [id number] Admit Date: 06/12/2019 4:44 PM Visit status: Admission PCP: Chayo Hamilton MD Code status:Full Code Subjective: Denied any complains. No chest pain,SOB, palpitation No fever No headache, dizziness No frequency, urgency, dysuria No diarrhoea, vomiting or abdominal pain PHYSICAL EXAM: Blood pressure 128/82, pulse 66, temperature 98.1 F (36.7 C), temperature source Oral, resp. rate 20, height 6' (1.829 m), weight (!) 361 lb (163.7 kg), SpO2 93 %. General appearance: No apparent distress HEENT: AT/NC Neck: No jugular venous distention Respiratory: Normal respiratory effort. Clear to auscultation, bilaterally without Rales/Wheezes/Rhonchi. Cardiovascular: Regular rate and rhythm with normal S1/S2 without murmurs, rubs or gallops. Abdomen: Soft, non-tender, non-distended with normal bowel sounds. Musculoskeletal: No clubbing, cyanosis or edema bilaterally Skin: No rashes or lesions. Neurologic: Neurovascularly intact without any focal sensory/motor deficits. Cranial nerves: II-XIIintact, grossly non-focal. MEDICATIONS Current Facility-Administered Medications Medication Dose Route Frequency Provider Last Rate Last Dose levothyroxine (SYNTHROID) tablet 175 mcg 175 mcg Oral Daily Joy Fox MD 175 mcg at 06/20/19 0640 pantoprazole (PROTONIX) tablet 40 mg 40 mg Oral BID AC Joy Fox MD 40 mg at 06/20/19 0640 sodium chloride (PF) 0.9 % injection 10 mL 10 mL Intravenous PRN Yany Mendes PA-C metoprolol tartrate (LOPRESSOR) tablet 25 mg 25 mg Oral BID Joy Fxo MD 25 mg at 06/19/192003 enoxaparin (LOVENOX) injection 150 mg 150 mg Subcutaneous BID Joy Fox MD 150 mg at 06/19/192003 traMADol (ULTRAM) tablet 50 mg 50 mg Oral Q6H PRN Cedrick De La Cruz MD 50 mg at 06/19/19 2208 sodium chloride flush 0.9 % injection 10 mL 10 mL Intravenous 2 times per day Cedrick De La Cruz MD 10 mL at 06/19/19 225 sodium chloride flush 0.9 % injection 10 mL 10 mL Intravenous PRN Cedrick De La Cruz MD magnesium hydroxide (MILK OF MAGNESIA) 400 MG/5ML suspension 30 mL 30 mL Oral Daily PRN Cedrick De La Cruz MD ondansetron (ZOFRAN) injection 4 mg 4 mg Intravenous Q6H PRN Cedrick De La Cruz MD 4 mg at 06/14/19 0917 hydrALAZINE (APRESOLINE) injection 10 mg 10 mg Intravenous Q6H PRN Cedrick De La Cruz MD oxyCODONE-acetaminophen (PERCOCET) 5-325 MG per tablet 1 tablet 1 tablet Oral Q4H PRN Cedrick De La Cruz MD 1 tablet at 06/20/19 0640 sodium chloride flush 0.9 % injection 3 mL 3 mL Intravenous Q8H Jorge Alberto Cardenas MD 3 mL at 216 ondansetron (ZOFRAN) injection 4 mg 4 mg Intravenous Once Tamy Miranda, [employer] DATA: I/O (24Hr): Intake/Output Summary (Last 24 hours) at 2019 0756 Last data filed at 06/19/2019 1955 Gross per 24 hour Intake 640 ml Output Net 640 ml Labs: Recent Labs 06/18/19 0504 06/19/19 0611 WBC 7.4 6.4 HGB 10.8* 11.1* PLT 409 414 Recent Labs 06/18/19 0504 06/19/19 0610 NA 138 137 K 4.1 4.1 CL 103 103 CO2 28 29 BUN 19 14 CREATININE 0.95 0.87 GLUCOSE 91 87 No results for input(s): AST, ALT, ALB, BILITOT, ALKPHOS in the last 72 hours. Reviewed all pertinent Labs and Radiology reports ASSESSMENT AND PLAN: 1. B/L DVT On lovenox, coumadin bridge. Pharmacy to manage coumadin dosing while in hospital. Recheck INR am. If INR remains above 2 tomorrow will D/C home. 2. GI bleed Hb stable. S/P Colonoscopy by Dr. Harley on 06/17/2019. On Colonoscopy Internal hemorrhoids were seen, no bleeding. Per him likely source of recent bleed. He cleared patient to be back on coumadin and lovenox. Patient needs repeat colonoscopy for survellience as outpatient. 3. JESUS Resolved. 4. HTN C/W metoprolol. 5. Anemia Hb stable. C/W monitoring. 6. Morbid Obesity 7. Debility Patient denied at [facility] by her insurance provider. Will D/C her home with [facility] once INR therapeutic. 8. DVT/GI Prophylaxis Addressed. Joy Fox MD Pager- [phone] Date of Service: 06/20/19 Time of Service: 7:56 AM * Yuridia Rendon DTR - 06/19/2019 12:28 PM EDT Nutrition update completed. Chart reviewed. Patient to be monitored and followed by the diet technician telecommunication systems. * Carla Kirkpatrick - 06/19/2019 10:44 AM EDT [facility] Anticoagulation Management Service ([facility]) Inpatient Warfarin Consult HPI: Jose Ardon is a 58 y.o. female admitted on 06/12/2019 for <principal problem not specified>. Past Medical History: Diagnosis Date Arthritis Chronic kidney disease COPD (chronic obstructive pulmonary disease) (HCC) Hyperlipidemia Hypertension Thyroid disease Patient is newly referred to the [facility] for warfarin management. Pt was referred by Dr. De La Cruz.Pt is on warfarin for DVT and has a goal INR 2.0 - 3.0 . Duration of therapy= TBD. PCP: Chayo Hamilton MD S/sx of bleeding= blood tinged stools (colonoscopy showed internal hemorrhoids) Interacting medications= lovenox, levothyroxine (home) Labs: Recent Labs 06/17/19 0424 06/18/19 0504 06/19/19 0611 HGB 10.9* 10.8* 11.1* HCT 32.4* 32.1* 32.7* PLT 417 409 414 Recent Labs 06/19/19 0610 INR 1.5* Date INR Dose 06/19 1.5 15mg 06/18 1.1 15mg 06/17 1.1 10mg 06/16 1.0 10mg 06/15 1.0 7.5mg 06/14 1.0 5mg 06/13 1.0 5mg Assessment/Plan: 1. INR is Subtherapeutic due to new start to warfarin. Finally seeing some movement in INR after 15mg dose, will give another 15mg dose today. 2. Will monitor for s/s of bleeding and drug interactions and adjust dose accordingly. 3. Will facilitate [facility] follow-up upon discharge. Thank you for this consult Carla Kirkpatrick, HugoD Candidate, staffed with Anastasia Valadez PharmD, [facility] Consult Service available [phone] daily via [employer] or page Pager# [phone] * Joy Fox MD - 06/19/2019 8:29 AM EDT DAILY PROGRESS NOTE Name: Jose Ardon RN: [id number] Admit Date: 06/12/2019 4:44 PM Visit status: Admission PCP: Chayo Hamilton MD Code status:Full Code Subjective: Patient seen and examined. D/W staff. Patient denied any complains. No chest pain,SOB, palpitation No fever No headache, dizziness No frequency, urgency, dysuria No diarrhoea, vomiting or abdominal pain PHYSICAL EXAM: Blood pressure 125/67, pulse 65, temperature 98.6 F (37 C), temperature source Temporal, resp. rate17, height 6' (1.829 m), weight (!) 361 lb (163.7 kg), SpO2 93 %. General appearance: No apparent distress HEENT: AT/NC Neck: No jugular venous distention Respiratory: Normal respiratory effort. Clear to auscultation, bilaterally without Rales/Wheezes/Rhonchi. Cardiovascular: Regular rate and rhythm with normal S1/S2 without murmurs, rubs or gallops. Abdomen: Soft, non-tender, non-distended with normal bowel sounds. Musculoskeletal: No clubbing, cyanosis or edema bilaterally Skin: No rashes or lesions. Neurologic: Neurovascularly intact without any focal sensory/motor deficits. Cranial nerves: II-XIIintact, grossly non-focal. MEDICATIONS Current Facility-Administered Medications Medication Dose Route Frequency Provider Last Rate Last Dose levothyroxine (SYNTHROID) tablet 175 mcg 175 mcg Oral Daily Joy Fox MD 175 mcg at 06/19/19 06 pantoprazole (PROTONIX) tablet 40 mg 40 mg Oral BID AC Joy Fox MD 40 mg at 06/19/19604 sodium chloride (PF) 0.9 % injection 10 mL 10 mL Intravenous PRN Yany Mendes PA-C metoprolol tartrate (LOPRESSOR) tablet 25 mg 25 mg Oral BID Joy Fox MD 25 mg at 06/18/192042 enoxaparin (LOVENOX) injection 150 mg 150 mg Subcutaneous BID Joy Fox MD 150 mg at 06/18/192043 traMADol (ULTRAM) tablet 50 mg 50 mg Oral Q6H PRN Cedrick De La Cruz MD 50 mg at 06/18/19 2325 sodium chloride flush 0.9 % injection 10 mL 10 mL Intravenous 2 times per day Cedrick De La Cruz MD 10 mL at 06/18/19 2203 sodium chloride flush 0.9 % injection 10 mL 10 mL Intravenous PRN Cedrick De La Cruz MD magnesium hydroxide (MILK OF MAGNESIA) 400 MG/5ML suspension 30 mL 30 mL Oral Daily PRN Cedrick De La Cruz MD ondansetron (ZOFRAN) injection 4 mg 4 mg Intravenous Q6H PRN Cedrick De La Cruz MD 4 mg at 06/14/19 0917 hydrALAZINE (APRESOLINE) injection 10 mg 10 mg Intravenous Q6H PRN Cedrick De La Cruz MD oxyCODONE-acetaminophen (PERCOCET) 5-325 MG per tablet 1 tablet 1 tablet Oral Q4H PRN Cedrick De La Cruz MD 1 tablet at 06/19/19 0605 sodium chloride flush 0.9 % injection 3 mL 3 mL Intravenous Q8H Jorge Alberto Cardenas MD 3 mL at 331 ondansetron (ZOFRAN) injection 4 mg 4 mg Intravenous Once Tamy Ruben, SWING DRIVER - PAINT MAKER DATA: I/O (24Hr): Intake/Output Summary (Last 24 hours) at 06/19/2019 0830 Last data filed at 06/18/2019 1942 Gross per 24 hour Intake 400 ml Output Net 400 ml Labs: Recent Labs 06/17/19 0424 06/18/19 0504 06/19/19 0611 WBC 7.3 7.4 6.4 HGB 10.9* 10.8* 11.1* PLT 417 409 414 Recent Labs 06/17/19 0424 06/18/19 0504 06/19/19 0610 NA 137 138 137 K 4.0 4.1 4.1 CL 101 103 103 CO2 27 28 29 BUN 17 19 14 CREATININE 0.88 0.95 0.87 GLUCOSE 92 91 87 No results for input(s): AST, ALT, ALB, BILITOT, ALKPHOS in the last 72 hours. Reviewed all pertinent Labs and Radiology reports ASSESSMENT AND PLAN: 1. B/L DVT On lovenox, coumadin bridge. Pharmacy to manage coumadin dosing while in hospital. Recheck INR am. Patient not able to afford lovenox. Will need to stay at [facility] until INR > 2 x 24 hrs. 2. GI bleed Hb stable. S/P Colonoscopy by Dr. Harley on 06/17/2019. On Colonoscopy Internal hemorrhoids were seen, no bleeding. Per him likely source of recent bleed. He cleared patient to be back on coumadin and lovenox. Patient needs repeat colonoscopy for survellience as outpatient. 3. JESUS Resolved. 4. HTN C/W metoprolol. 5. Anemia Hb stable. C/W monitoring. 6. Morbid Obesity 7. Debility Patient denied at [facility] by her insurance provider. Will D/C her home with [facility] once INR therapeutic. 8. DVT/GI Prophylaxis Addressed. Joy Fox MD Pager- [phone] Date of Service: 06/19/19 Time of Service: 8:30 AM * Mabel Magallanes, LILI - 06/18/2019 11:31 AM EDT Occupational Therapy Facility/Department: [facility] Daily Treatment Note Discharge Recommendations: IP Rehab Assessment Assessment: Progressing toward goals. Foot pain and edema currently limiting functional indep. Would benefit from intensive rehab level therapies at discharge. REQUIRES OT FOLLOW UP: Yes Safety Devices Type of devices: Left in chair;Call light within reach Subjective Subjective: Pt up in chair, hopeful for discharge to rehab. Pain Assessment Pain Level: 9 Pain Location: Foot Pain Orientation: Left Pre Treatment Pain Screening Comments / Details: lateral border, plantar worse than dorsal surface. Objective ADL LE Dressing: Minimal assistance(difficulty with reach to feet due to edema) Toileting: Minimal assistance Toilet Transfers Equipment Used: Standard bedside commode Toilet Transfer: Minimal assistance Transfers Sit to stand: Minimal assistance Stand to sit: Contact guard assistance Type of ROM/Therapeutic Exercise Comment: Provided IS, suggest completion 10x/hour while awake; pt with good technique to approx 2000ml. Also encouraged UE ROM and cycling/punching. Pt. provides good return demo of same. Plan Plan Comment: Cont OT per POC Goals Short term goal 1: Modif indep LE ADL--PROGRESSING Short term goal 2: Modif indep grooming task while standing at sink--NOT ADDRESSED Short term goal 3: Modif indep toilet transfer and toileting--PROGRESSING Short term goal 4: Pt will demo good standing balance x10 mins during BUE functional reaching activities--PROGRESSING Therapy Time Individual Concurrent Group Co-treatment Time In 1108 Time Out 1131 Minutes 23 Timed Code Treatment Minutes: 23 Minutes(Funct--1; Ther Ex--1) LIIL Mills * MeiCarla barry - 06/18/2019 10:21 AM EDT [facility] Anticoagulation Management Service ([facility]) Inpatient Warfarin Consult HPI: Jose Ardon is a 58 y.o. female admitted on 06/12/2019 for <principal problem not specified>. Past Medical History: Diagnosis Date Arthritis Chronic kidney disease COPD (chronic obstructive pulmonary disease) (HCC) Hyperlipidemia Hypertension Thyroid disease Patient is newly referred to the [facility] clinic for warfarin management. Pt was referred by Dr. De La Cruz.Pt is on warfarin for DVT and has a goal INR 2.0 - 3.0 . Duration of therapy= TBD. PCP: Chayo Hamilton MD S/sx of bleeding= blood tinged stools (colonoscopy showed internal hemorrhoids) Interacting medications= lovenox, levothyroxine (home) Labs: Recent Labs 06/16/19 0314 06/17/19 0424 06/18/19 0504 HGB 8.7* 10.9* 10.8* HCT 25.5* 32.4* 32.1* PLT 441* 417 409 Recent Labs 06/18/19 0504 INR 1.1 Date INR Dose 06/18 1.1 15mg 06/17 1.1 10mg 06/16 1.0 10mg 06/15 1.0 7.5mg 06/14 1.0 5mg 06/13 1.0 5mg Assessment/Plan: 1. INR is Subtherapeutic due to new start to warfarin. Minimal change in INR after higher doses of 10mg x2, will increase dose and give 15mg dose today. 2. Will monitor for s/s of bleeding and drug interactions and adjust dose accordingly. 3. Will facilitate [facility] follow-up upon discharge. Thank you for this consult Carla Kirkpatrick, PharmD Candidate, staffed with Anastasia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 Michelle for sit-->stand and stand-->sit and CGA for chair-->bed. BLE swelling appear to be secondary to decrease in kidney function and multitude of DVTs rather than true lymphedema. Recommend further physical therapy at inpatient rehab facility. Pt able to tolerate 15 hours of therapy per week. Prognosis: Good Decision Making: Low Complexity REQUIRES PT FOLLOW UP: Yes Activity Tolerance Activity Tolerance: Patient Tolerated treatment well;Patient limited by endurance Patient Diagnosis(es): The encounter diagnosis was JESUS (acute kidney injury) ([facility]). has a past medical history of Arthritis, Chronic kidney disease, COPD (chronic obstructive pulmonary disease) (HCC), Hyperlipidemia, Hypertension, and Thyroid disease. has a past surgical history that includes Cholecystectomy; shoulder surgery; knee surgery; and joint replacement. Restrictions Restrictions/Precautions Restrictions/Precautions: Fall Risk Required Braces or Orthoses?: No Vision/Hearing Subjective General Chart Reviewed: Yes Patient assessed for rehabilitation services?: Yes Family / Caregiver Present: No Diagnosis: JESUS Follows Commands: Within Functional Limits Subjective Subjective: Pt found sitting reclined in chair, agreeable to PT. Nursing notified. Pain Screening Patient Currently in Pain: Denies Vital Signs Patient Currently in Pain: Denies Orientation Orientation Overall Orientation Status: Within Normal Limits Social/Functional History Social/Functional History Lives With: Significant other Type of Home: House Home Layout: One level Home Access: Stairs to enter without rails Entrance Stairs - Number of Steps: 1 Bathroom Shower/Tub: Tub/Shower unit Bathroom Toilet: Standard Bathroom Accessibility: Accessible Home Equipment: Standard walker, Wheelchair-manual ADL Assistance: Independent Homemaking Assistance: Independent Homemaking Responsibilities: Yes Ambulation Assistance: Independent Transfer Assistance: Independent Active Thermometer Tester: Yes 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 Transfers Sit to Stand: Minimal Assistance Stand to sit: Minimal Assistance Bed to Chair: Contact guard assistance Comment: Pt requires increased assistance with initiation of transfer and is able to decrease levelof assistance needed once transfer is in progress. Ambulation Ambulation?: No Stairs/Curb Stairs?: No Balance Sitting - Static: Good Sitting - Dynamic: Good Standing - Static: Good;- Standing - Dynamic: Fair;+ Comments: BLE measurements taken (in centimeters). RLE: Ankle: 28, Mid-Calf: 41, Tibial Tuberosity:51. LLE: Ankle: 30, Mid-Calf: 41, Tibial Tuberosity: 53. Exercises Ankle Pumps: Sitting BLE ankle pumps x10 reps each. Plan Plan Times per week: 5 Plan weeks: 2 Current Treatment Recommendations: Strengthening, Gait Training, Stair training, Balance Training, Functional Mobility Training, Endurance Training, Transfer Training Safety Devices Type of devices: All fall risk precautions in place, Call light within reach, Gait belt, Patient atrisk for falls, Left in chair, Nurse notified Restraints Initially in place: No G-Code OutComes Score AM-PAC Score AM-PAC Inpatient Mobility Raw Score : 15 (06/15/191405) AM-PAC Inpatient T-Scale Score : 39.45 (06/15/191405) Mobility Inpatient CMS 0-100% Score: 57.7 (06/15/191405) Mobility Inpatient [facility] G-Code Modifier : CK (06/15/191405) Goals Short term goals Time Frame for Short term goals: 2 weeks Short term goal 1: Independently perform all transfers. Short term goal 2: Ambulate 30' with least restrictive device and supervision. Short term goal 3: Negotiate 3 steps with supervision. Short term goal 4: Demonstrate good dynamic standing balance. Patient Goals Patient goals : To go home. Therapy Time Individual Concurrent Group Co-treatment Time In 1342 Time Out 1401 Minutes Patient s Physical Therapy Plan of Care supervision is transferred to [facility] Re[facility] Department Physical Therapist. Goals and/or treatment plan was established in collaboration with patient/family/other representatives. Deanna Coyle, SPT * Carla Kirkpatrick - 06/15/2019 12:51 PM EDT [facility] Anticoagulation Management Service ([facility]) Inpatient Warfarin Consult HPI: Jose Ardon is a 58 y.o. female admitted on 06/12/2019 for <principal problem not specified>. Past Medical History: Diagnosis Date Arthritis Chronic kidney disease COPD (chronic obstructive pulmonary disease) (HCC) Hyperlipidemia Hypertension Thyroid disease Patient is newly referred to the [facility] clinic for warfarin management. Pt was referred by Dr. De La Cruz.Pt is on warfarin for DVT and has a goal INR 2.0 - 3.0 . Duration of therapy= TBD. PCP: Chayo Hamilton MD S/sx of bleeding= none Interacting medications= lovenox, levothyroxine (home) Labs: Recent Labs 06/13/19 1140 06/14/19 0020 06/15/19 0459 HGB 11.3* 11.0* 11.1* HCT 32.7* 32.1* 31.8* PLT 332 330 342 Recent Labs 06/15/19 0459 INR 1.0 Date INR Dose 06/15 1.0 7.5mg 06/14 1.0 5mg 06/13 1.0 5mg Assessment/Plan: 1. INR is Subtherapeutic due to new start to warfarin. No change in INR after 5mg x 2, increasing dose to 7.5mg today. 2. Recommend increasing Lovenox to 150mg twice daily due to patients weight 3. Will monitor for s/s of bleeding and drug interactions and adjust dose accordingly. 4. Will facilitate [facility] follow-up upon discharge. 5. Provided warfarin education including [facility] warfarin booklet. Thank you for this consult Carla Kirkpatrick PharmD Candidate, staffed with Anastasia Valadez PharmD, [facility] Consult Service available [phone] daily via [employer] or page Pager# [phone] * Joy Fox MD - 06/15/2019 7:19 AM EDT DAILY PROGRESS NOTE Name: Jose Ardon RN: [id number] Admit Date: 06/12/2019 4:44 PM Visit status: Admission PCP: Chayo Hamilton MD Code status:Full Code Subjective: Patient seen and examined. D/W staff. Patient denied any complains except that she can hardly move. No chest pain,SOB, palpitation No fever No headache, dizziness No frequency, urgency, dysuria No diarrhoea, vomiting or abdominal pain PHYSICAL EXAM: Blood pressure 136/83, pulse 80, temperature 97.6 F (36.4 C), temperature source Temporal, resp. rate 18, height 6' (1.829 m), weight (!) 361 lb (163.7 kg), SpO2 93 %. General appearance: No apparent distress HEENT: AT/NC Neck: No jugular venous distention Respiratory: Normal respiratory effort. Clear to auscultation, bilaterally without Rales/Wheezes/Rhonchi. Cardiovascular: Regular rate and rhythm with normal S1/S2 without murmurs, rubs or gallops. Abdomen: Soft, non-tender, non-distended with normal bowel sounds. Musculoskeletal: No clubbing, cyanosis or edema bilaterally Skin: No rashes or lesions. Neurologic: Neurovascularly intact without any focal sensory/motor deficits. Cranial nerves: II-XIIintact, grossly non-focal. MEDICATIONS Current Facility-Administered Medications Medication Dose Route Frequency Provider Last Rate Last Dose enoxaparin (LOVENOX) injection 100 mg 100 mg Subcutaneous BID Og Harvey MD 100 mg at 06/14/192003 influenza quadrivalent split vaccine (FLUZONE;FLUARIX;FLULAVAL;AFLURIA) injection 0.5 mL 0.5 mL Intramuscular Once Cedrick De La Cruz MD traMADol (ULTRAM) tablet 50 mg 50 mg Oral Q6H PRN Cedrick De La Cruz MD 50 mg at 06/14/192004 sodium chloride flush 0.9 % injection 10 mL 10 mL Intravenous 2 times per day Cedrick De La Cruz MD 10 mL at 06/14/192004 sodium chloride flush 0.9 % injection 10 mL 10 mL Intravenous PRN Cedrick De La Cruz MD magnesium hydroxide (MILK OF MAGNESIA) 400 MG/5ML suspension 30 mL 30 mL Oral Daily PRN Cedrick De La Cruz MD ondansetron (ZOFRAN) injection 4 mg 4 mg Intravenous Q6H PRN Cedrick De La Cruz MD 4 mg at 06/14/19 0917 hydrALAZINE (APRESOLINE) injection 10 mg 10 mg Intravenous Q6H PRN Cedrick De La Cruz MD oxyCODONE-acetaminophen (PERCOCET) 5-325 MG per tablet 1 tablet 1 tablet Oral Q4H PRN Cedrick De La Cruz MD 1 tablet at 06/15/19 0309 warfarin (COUMADIN) tablet 5 mg 5 mg Oral Daily Og Harvey MD 5 mg at 06/14/19 1629 sodium chloride flush 0.9 % injection 3 mL 3 mL Intravenous Q8H Jorge Alberto Cardenas MD 3 mL at 609 ondansetron (ZOFRAN) injection 4 mg 4 mg Intravenous Once Tamy Miranda, SWING DRIVER - PAINT MAKER DATA: I/O (24Hr): Intake/Output Summary (Last 24 hours) at 06/15/2019 0719 Last data filed at 06/14/2019 1255 Gross per 24 hour Intake 720 ml Output Net 720 ml Labs: Recent Labs 06/13/19 1140 06/14/19 0020 06/15/19 0459 WBC 7.6 7.7 6.1 HGB 11.3* 11.0* 11.1* PLT 332 330 342 Recent Labs 06/13/19 0405 06/14/19 0020 06/15/19 0459 NA 138 138 137 K 3.4* 3.6 4.0 CL 97* 99 101 CO2 31* 27 28 BUN 26* 23* 19 CREATININE 1.23 1.01 0.92 GLUCOSE 111* 90 109* Recent Labs 06/12/19 1940 AST 39 ALT 21 BILITOT 0.6 ALKPHOS 100 Reviewed all pertinent Labs and Radiology reports ASSESSMENT AND PLAN: 1. B/L DVT On lovenox, coumadin bridge. Pharmacy to manage coumadin dosing while in hospital. Recheck INR am. 2. JESUS Resolved. 3. HTN BP on higher side. Will start lopressor as her HR also on higher side. 4. Morbid Obesity 5. Debility Will await PT/OT recommendations. Joy Fox MD Pager- [phone] Date of Service: 06/15/19 Time of Service: 7:19 AM * Og Harvey MD - 06/14/2019 12:09 PM EDT Department of Internal Medicine General Internal Medicine Attending Progress Note SUBJECTIVE: No new complaints OBJECTIVE Medications Current Facility-Administered Medications: enoxaparin (LOVENOX) injection 100 mg, 100 mg, Subcutaneous, BID influenza quadrivalent split vaccine (FLUZONE;FLUARIX;FLULAVAL;AFLURIA) injection 0.5 mL, 0.5 mL, Intramuscular, Once traMADol (ULTRAM) tablet 50 mg, 50 mg, Oral, Q6H PRN sodium chloride flush 0.9 % injection 10 mL, 10 mL, Intravenous, 2 times per day sodium chloride flush 0.9 % injection 10 mL, 10 mL, Intravenous, PRN magnesium hydroxide (MILK OF MAGNESIA) 400 MG/5ML suspension 30 mL, 30 mL, Oral, Daily PRN ondansetron (ZOFRAN) injection 4 mg, 4 mg, Intravenous, Q6H PRN hydrALAZINE (APRESOLINE) injection 10 mg, 10 mg, Intravenous, Q6H PRN oxyCODONE-acetaminophen (PERCOCET) 5-325 MG per tablet 1 tablet, 1 tablet, Oral, Q4H PRN warfarin (COUMADIN) tablet 5 mg, 5 mg, Oral, Daily [COMPLETED] Saline lock IV, , , Continuous AND sodium chloride flush 0.9 % injection 3 mL, 3 mL, Intravenous, Q8H ondansetron (ZOFRAN) injection 4 mg, 4 mg, Intravenous, Once Physical VITALS: BP 135/82 Pulse 90 Temp 98.3 F (36.8 C) (Temporal) Resp 16 Ht 6' (1.829 m) Wt (!)361 lb (163.7 kg) SpO2 93% BMI 48.96 kg/m Patient is alert, awake, oriented x 3 No pallor, Icterus No JVD Heart S1 S2 No murmurs Lungs clear to auscultation Abdomen soft non distended no organomegaly No pedal edema No focal neurological deficits Data CBC with Differential: Lab Results Component Value Date WBC 7.7 06/14/2019 RBC 3.56 06/14/2019 HGB 11.0 06/14/2019 HCT 32.1 06/14/2019 PLT 330 06/14/2019 MCV 90.2 06/14/2019 MCH 30.8 06/14/2019 MCHC 34.2 06/14/2019 RDW 14.1 06/14/2019 LYMPHOPCT 14.3 06/14/2019 MONOPCT 7.9 06/14/2019 BASOPCT 0.5 06/14/2019 MONOSABS 0.6 06/14/2019 LYMPHSABS 1.1 06/14/2019 EOSABS 0.1 06/14/2019 BASOSABS 0.0 06/14/2019 BMP: Lab Results Component Value Date NA 138 06/14/2019 K 3.6 06/14/2019 CL 99 06/14/2019 CO2 27 06/14/2019 BUN 23 06/14/2019 LABALBU 4.1 06/12/2019 CREATININE 1.01 06/14/2019 CALCIUM 9.5 06/14/2019 GLUCOSE 90 06/14/2019 ASSESSMENT AND PLAN 1) Bilateral Lower extremity swelling -- likely combination of norvasc morbidly obese. Vs acute b/lDVT- Would recommend [facility] lymphedema clin[facility], no diuretics at this time due to jesus and no sob 2. Below knee DVT b/l - Pt at high risk for progression due to her sedentary life style, on Warfarin, will switch to lovenox Could not get ct done to check for pelvic masses as she doesnot fit. 2) Acute kidney injury -- Creatinine is improving, avoid nephrotoxic agents; strict I/O's 3) HTN -- lupillo hold norvasc given LE edema and use prn hydralazine for SBP 160 or above And asses need for BP meds at home 4) Morbid Obesity BMI > 40; 5.inability to ambulate- due to 1, ptot pending * Maral Stuart - 06/14/2019 12:07 PM EDT .Nutrition rescreen completed. Chart reviewed. Patient to be monitored and followed by the diet technician telecommunication systems.NAZIA Mukherjee * Parminder Roman [facility] - 06/14/2019 7:43 AM EDT [facility] Anticoagulation Management Service ([facility]) Inpatient Warfarin Consult HPI: Jose Ardon is a 58 y.o. female admitted on 06/12/2019 for <principal problem not specified>. Past Medical History: Diagnosis Date Arthritis Chronic kidney disease COPD (chronic obstructive pulmonary disease) (HCC) Hyperlipidemia Hypertension Thyroid disease Patient is newly referred to the [facility] clinic for warfarin management. Pt was referred by Dr. De La Cruz.Pt is on warfarin for DVT and has a goal INR 2.0 - 3.0 . Duration of therapy= TBD. PCP: Chayo Hamilton MD S/sx of bleeding= none Interacting medications= heparin, levothyroxein (home) Labs: Recent Labs 06/13/19 0405 06/13/19 1140 06/14/19 0020 HGB 11.7 11.3* 11.0* HCT 34.0* 32.7* 32.1* PLT 328 332 330 Recent Labs 06/13/19 1139 INR 1.0 Date INR Dose 06/14 1.0 5mg 06/13 1.0 5mg Assessment/Plan: 1. INR is Subtherapeutic due to new start to warfarin. Will give 5mg again today given that we haven't seen the effect of the first dose. 2. Will monitor for s/s of bleeding and drug interactions and adjust dose accordingly. 3. Will facilitate [facility] follow-up upon discharge. 4. Will provide warfarin education including [facility] warfarin booklet. Thank you for this consult Parminder Roman PharmD [facility] Consult Service available [phone] daily via [employer] or page Pager# [phone] * Jen Gilman RN - 06/13/2019 6:23 PM EDT Aptt 31.1. Increased rate from 21ml to 23ml. Bolus given. Redraw at 0020 * Og Harvey MD - 06/13/2019 12:29 PM EDT Department of Internal Medicine General Internal Medicine Attending Progress Note SUBJECTIVE: OBJECTIVE Medications Current Facility-Administered Medications: [START ON 06/14/2019] influenza quadrivalent split vaccine (FLUZONE;FLUARIX;FLULAVAL;AFLURIA) injection 0.5 mL, 0.5 mL, Intramuscular, Once traMADol (ULTRAM) tablet 50 mg, 50 mg, Oral, Q6H PRN sodium chloride flush 0.9 % injection 10 mL, 10 mL, Intravenous, 2 times per day sodium chloride flush 0.9 % injection 10 mL, 10 mL, Intravenous, PRN magnesium hydroxide (MILK OF MAGNESIA) 400 MG/5ML suspension 30 mL, 30 mL, Oral, Daily PRN ondansetron (ZOFRAN) injection 4 mg, 4 mg, Intravenous, Q6H PRN hydrALAZINE (APRESOLINE) injection 10 mg, 10 mg, Intravenous, Q6H PRN oxyCODONE-acetaminophen (PERCOCET) 5-325 MG per tablet 1 tablet, 1 tablet, Oral, Q4H PRN heparin (porcine) injection 10,000 Units, 10,000 Units, Intravenous, PRN heparin (porcine) injection 5,000 Units, 5,000 Units, Intravenous, PRN heparin 25,000 units in dextrose 5% 250 mL infusion, 2,100 Units/hr, Intravenous, Continuous warfarin (COUMADIN) tablet 5 mg, 5 mg, Oral, Daily [COMPLETED] Saline lock IV, , , Continuous AND sodium chloride flush 0.9 % injection 3 mL, 3 mL, Intravenous, Q8H ondansetron (ZOFRAN) injection 4 mg, 4 mg, Intravenous, Once Physical VITALS: BP 127/71 Pulse 74 Temp 98.4 F (36.9 C) (Oral) Resp 16 Ht 6' (1.829 m) Wt (!) 361lb (163.7 kg) SpO2 93% BMI 48.96 kg/m Patient is alert, awake, oriented x 3, obese No pallor, Icterus No JVD Heart S1 S2 No murmurs Lungs clear to auscultation Abdomen soft non distended no organomegaly 1+edema from ankles down below No focal neurological deficits Data CBC with Differential: Lab Results Component Value Date WBC 7.6 06/13/2019 RBC 3.66 06/13/2019 HGB 11.3 06/13/2019 HCT 32.7 06/13/2019 PLT 332 06/13/2019 MCV 89.2 06/13/2019 MCH 31.0 06/13/2019 MCHC 34.7 06/13/2019 RDW 13.9 06/13/2019 LYMPHOPCT 18.1 06/13/2019 MONOPCT 7.7 06/13/2019 BASOPCT 1.0 06/13/2019 MONOSABS 0.6 06/13/2019 LYMPHSABS 1.5 06/13/2019 EOSABS 0.1 06/13/2019 BASOSABS 0.1 06/13/2019 BMP: Lab Results Component Value Date NA 138 06/13/2019 K 3.4 06/13/2019 CL 97 06/13/2019 CO2 31 06/13/2019 BUN 26 06/13/2019 LABALBU 4.1 06/12/2019 CREATININE 1.23 06/13/2019 CALCIUM 10.9 06/13/2019 GLUCOSE 111 06/13/2019 ASSESSMENT AND PLAN 1) Bilateral Lower extremity swelling -- likely combination of norvasc morbidly obese. Vs acute b/lDVT- Would recommend dayne patrick lymphedema clininc, no diuretics at this time due to jesus and no sob 2. Below knee DVT b/l - Pt at high risk for progression due to her sedentary life style, will starton HBW and warfarin. Could not get ct done to check for pelvic masses as she doesnot fit. 2) Acute kidney injury -- Creatinine is improving, avoid nephrotoxic agents; strict I/O's 3) HTN -- lupillo hold norvasc given LE edema and use prn hydralazine for SBP 160 or above And asses need for BP meds at home 4) Morbid Obesity BMI > 40; encourages exercisel; weight loss and pool therapy * Parminder Roman RPH - 06/13/2019 11:50 AM EDT [facility] Anticoagulation Management Service ([facility]) Inpatient Warfarin Consult HPI: Jose Ardon is a 58 y.o. female admitted on 06/12/2019 for <principal problem not specified>. Past Medical History: Diagnosis Date Arthritis Chronic kidney disease COPD (chronic obstructive pulmonary disease) (HCC) Hyperlipidemia Hypertension Thyroid disease Patient is newly referred to the [facility] clinic for warfarin management. Pt was referred by Dr. De La Cruz.Pt is on warfarin for DVT and has a goal INR 2.0 - 3.0 . Duration of therapy= TBD. PCP: Chayo Hamilton MD S/sx of bleeding= none Interacting medications= heparin, levothyroxein (home) Labs: Recent Labs 06/12/19 1940 06/13/19 0405 06/13/19 1140 HGB 12.3 11.7 11.3* HCT 35.6 34.0* 32.7* PLT 359 328 332 No results for input(s): INR in the last 72 hours. Date INR Dose 06/13 1.0 5mg Assessment/Plan: 1. INR is Subtherapeutic due to new start to warfarin. Will give 5mg today. 2. Will monitor for s/s of bleeding and drug interactions and adjust dose accordingly. 3. Will facilitate [facility] follow-up upon discharge. 4. Will provide warfarin education including [facility] warfarin booklet. Thank you for this consult Parminder Roman PharmD [facility] Consult Service available [phone] daily via [employer] or page Pager# [phone] * Jen Gilman RN - 06/13/2019 10:11 AM EDT Patient states she did not fit in CT scan. Paged Dr. Harvey regarding issue documented in this encounter Assessments Diagnosis Leg swelling- Primary Swelling of limb JESUS (acute kidney injury) (HCC) Acute kidney failure, unspecified Diagnosis Bilateral lower extremity edema- Primary Edema Peripheral polyneuropathy Unspecified hereditary and idiopathic peripheral neuropathy Diagnosis JESUS (acute kidney injury) (HCC)- Primary Acute kidney failure, unspecified Acute deep vein thrombosis (DVT) of proximal vein of both lower extremities (HCC) Acute kidney failure, unspecified (HCC) Acute kidney failure, unspecified Hematochezia Blood in stool Acute anemia Acute deep vein thrombosis (DVT) of both lower extremities (HCC) laborer marine terminal (current) use of anticoagulants Long-term (current) use of anticoagulants Status post colonoscopy Other postprocedural status Diagnosis Acute deep vein thrombosis (DVT) of right lower extremity, unspecified vein (HCC) Advance Directives Documents on File Type Date Recorded Patient Environmental Journalist Expl anation Advance Directives and Living Will Power of Utility Sales And Service Manager Latest Code Status on File Code Status Date Activated Date Inactivated Comments Full Code 06/01/2019 10:51 PM Latest Code Status on File Code Status Date Activated Date Inactivated Comments Full Code 06/01/2019 10:51 PM 06/02/2019 9:11 PM Latest Code Status on File Code Status Date Activated Date Inactivated Comments Full Code 06/16/2019 4:16 PM Full Code 06/13/2019 12:43 AM 06/16/2019 4:16 PM Full Code 06/01/2019 10:51 PM 06/02/2019 9:11 PM Latest Code Status on File Code Status Date Activated Date Inactivated Comments Full Code 06/16/2019 4:16 PM 06/25/2019 4:18 PM Documents on File Type Date Recorded Patient Environmental Journalist Expl anation ACP-Advance Directive ACP-Power of Utility Sales And Service Manager Latest Code Status on File Code Status Date Activated Date Inactivated Comments Full Code 08/06/2021 7:26 PM Full Code 06/16/2019 4:16 PM 06/25/2019 4:18 PM Directive Description Status Resuscitation FULL CODE Current and Veri fied Latest Code Status on File Code Status Date Activated Date Inactivated Comments Full Code 02/06/2022 6:25 AM 02/06/2022 12:58 PM Full Code 08/06/2021 7:26 PM 08/09/2021 7:03 PM Discharge Instructions * Instructions* Radha Cummings PA-C - 06/11/2019 Elevate, continue to wear DAYNE hose Use pain medication as needed Take your gabapentin as prescribed, increase to 3 tablets a day for better pain control Follow-up promptly with her primary care provider * Attachments The following attachments cannot be sent through Care Everywhere. * Neuropathic Pain (Namibian) * Edema: Leg and Ankle (Namibian) documented in this encounter* Discharge Instr - Activity* Jayson Ballesteros MD - 06/25/2019 11:28 AM EDT As tolerated * Discharge Instr - Diet* Jayson Ballesteros MD - 06/25/2019 11:29 AM EDT ? Good nutrition is important when healing from an illness, injury, or surgery. Follow any nutrition recommendations given to you during your hospital stay. ? If you were given an oral nutrition supplement while in the hospital, continue to take this supplement at home. You can take it with meals, in-between meals, and/or before bedtime. These supplements can be purchased at most local grocery stores, pharmacies, and chain super-stores. ? If you have any questions about your diet or nutrition, call the hospital and ask for the dietitian. ? Carb control diet * Discharge Instr - Lab* Maliha Lee RN - 06/18/2019 3:29 PM EDT Your physician has ordered skilled home care services for you. Your home care will be provided by: [facility] [phone] * Discharge Instr - MCKAYLA* Geneva Capps, COLLEGE ADMISSIONS COUNSELOR - 06/16/2019 3:49 PM EDT Continuity of Care Form Patient Name: Jose Ardon : 1960 Admit date: 06/12/2019 Discharge date: Code Status Order: Full Code Advance Directives: Advance Care Flowsheet Documentation Date/Time Healthcare Directive Type of Healthcare Directive Copy in Chart Healthcare Agent Appointed Healthcare Agent's Name Healthcare Agent's Phone Number 06/13/19 2356 No, patient does not have an advance directive for healthcare treatment -- -- -- -- -- Admitting Physician: Cedrick De La Cruz MD PCP: Chayo Hamilton MD Discharging Nurse: Discharging Hospital Unit/Room#: 1729/1729B Discharging Unit Phone Number: Emergency Contact: No emergency contact information on file. Past Surgical History: Past Surgical History: Procedure Laterality Date CHOLECYSTECTOMY JOINT REPLACEMENT KNEE SURGERY SHOULDER SURGERY Immunization History: Immunization History Administered Date(s) Administered Influenza, Quadv, IM, PF (6 mo and older Fluzone, Flulaval, Fluarix, and 3 yrs and older Afluria) 06/15/2019 Active Problems: Patient Active Problem List Diagnosis Code JESUS (acute kidney injury) (HCC) N17.9 Acute kidney failure, unspecified (HCC) N17.9 Isolation/Infection: Isolation No Isolation Nurse Assessment: Last Vital Signs: BP 129/78 Pulse 64 Temp 97.8 F (36.6 C) (Temporal) Resp 18 Ht 6' (1.829 m) Wt (!) 361 lb (163.7 kg) SpO2 95% BMI 48.96 kg/m Last documented pain score (0-10 scale): Pain Level: 8 Last Weight: Wt Readings from Last 1 Encounters: 06/12/19 (!) 361 lb (163.7 kg) Mental Status: {IP PT MENTAL STATUS:} IV Access: { MCKAYLA IV ACCESS:912407779} Nursing Mobility/ADLs: Walking {CHP DME ADLs:971454504} Transfer {CHP DME ADLs:951739144} Bathing {CHP DME ADLs:130143914} Dressing {CHP DME ADLs:007407362} Toileting {CHP DME ADLs:819395926} Feeding {CHP DME ADLs:597195137} Product Management Internship {CHP DME ADLs:214793194} Med Delivery { MCKAYLA MED Delivery:874232735} Wound Care Documentation and Therapy: Elimination: Continence: Bowel: {YES / NO:} Bladder: {YES / NO:} Urinary Catheter: {Urinary Catheter:718554606} Colostomy/Ileostomy/Ileal Conduit: {YES / NO:} Date of Last BM: Intake/Output Summary (Last 24 hours) at 06/16/2019 1549 Last data filed at 06/16/2019 1251 Gross per 24 hour Intake 440 ml Output Net 440 ml I/O last 3 completed shifts: In: 440 [P.O.:440] Out: - Safety Concerns: { MCKAYLA Safety Concerns:890184118} Impairments/Disabilities: { MCKAYLA Impairments/Disabilities:206139492} Nutrition Therapy: Current Nutrition Therapy: { MCKAYLA Diet List:672880043} Routes of Feeding: {CHP DME Other Feedings:199363589} Liquids: {Aerodynamicist liquid thickness:46016} Daily Fluid Restriction: {CHP DME Yes amt example:071884795} Last Modified Barium Swallow with Video (Video Swallowing Test): {Done Not Done Date:} Treatments at the Time of Hospital Discharge: Respiratory Treatments: Oxygen Therapy: {Therapy; copd oxygen:81958} Ventilator: {[facility] Vent List:459977637} Rehab Therapies: {THERAPEUTIC INTERVENTION:3608527605} Weight Bearing Status/Restrictions: { CC Weight Bearin} Other Medical Equipment (for information only, NOT a DME order): {EQUIPMENT:670781886} Other Treatments: Patient's personal belongings (please select all that are sent with patient): {CHP DME Belongings:258489009} RN SIGNATURE: {Esignature:505444662} CASE MANAGEMENT/SOCIAL WORK SECTION Inpatient Status Date: 06/16/19 Readmission Risk Assessment Score: Readmission Risk Risk of Unplanned Readmission: 10 Discharging to Facility/ Agency Name: Address: Phone: Fax: Dialysis Facility (if applicable) Name: Address: Dialysis Schedule: Phone: Fax: Stonemason/Plasma Specialist signature: ICIAN SECTION Prognosis: {Prognosis:0174217165} Condition at Discharge: { Patient Condition:574444986} Rehab Potential (if transferring to Rehab): {Prognosis:4989205164} Recommended Labs or Other Treatments After Discharge: Physician Certification: I certify the above information and transfer of Jose Ardon is necessary for the continuing treatment of the diagnosis listed and that she requires {Admit to Appropriate Level of Care:20181} for {GREATER/LESS:628116686} 30 days. Update Admission H&P: {CHP DME Changes in HandP:820608157} PHYSICIAN SIGNATURE: {Esignature:894097859} * Additional Instructions* Saskia Sandhu, [facility] - 06/17/2019 Diverticulosis Discharge Instructions You must carefully read the Consumer Information Use and Disclaimer below in order to understand and correctly use this information About this topic Diverticulosis is a problem of the large bowel or colon. The wall of the bowel becomes weak and pushes outward. They form balloon-like pouches called diverticula or tics. When you have hard stool, you strain to have a bowel movement. This raises the pressure in the bowel and causes pouches or bulges to form. Most often, they do not cause a problem. If they become infected, you have diverticulitis. If you have both bleeding and infection it is diverticular disease. What care is needed at home? ? Ask your doctor what you need to do when you go home. Make sure you ask questions if you do not understand what the doctor says. ? Eat more whole grains, vegetables, and fruits. ? Do not wait to have a bowel movement. Go as soon as you have the urge. ? Drink 8 to 10 glasses of water each day. Talk to your doctor if you are drinking less fluids due to a health problem. ? Get regular exercise. What follow-up care is needed? Your doctor may ask you to make visits to the office to check on your progress. Be sure to keep these visits. What drugs may be needed? Most often with diverticulosis you will not need to take any drugs. Will physical activity be limited? When you are in pain, you may need to rest in bed. To ease the pain, use a heat compress on your belly. This should last only for a few days. What changes to diet are needed? Talk to your doctor about any changes you need to make to your diet. ? You do not need to avoid seeds, nuts, corn, or other similar foods. ? You will need to eat food rich in fiber and drink more water. o Eat 5 or more servings of fresh fruits and vegetables every day. o Eat 6 or more servings of whole-wheat grain breads and cereals. o Try to get 25 to 30 grams of fiber every day. Read the labels to learn how much fiber is in foods. ? Do not drink coffee, tea, or beer, wine, and mixed drinks (alcohol). What problems could happen? You may develop diverticulitis, which may cause: ? Pockets or pouches in your bowel may be infected or filled with pus. ? Hole or tear in your bowel ? Part of your bowel to become narrow ? You to need surgery What can be done to prevent this health problem? The best way to keep from having diverticulosis is to keep your bowel movements soft and normal. Tokeep more pouches from forming: ? Talk with your doctor about adding an bxov-ved-thvldph (OTC) fiber product to keep your stools soft. ? Limit how much pain drugs you take. Overuse of some pain drugs can cause hard stools; talk with your doctor. When do I need to call the doctor? ? Signs of infection. These include a fever of 100.4 F (38 C) or higher, chills. ? Mild pain or cramping in the lower part of the belly ? A feeling of bloating in the belly ? Belly pain that gets worse ? Blood in your stool ? Upset stomach or throwing up ? Stools get too loose or too hard ? Long-term hard stools Teach Back: Helping You Understand The Teach Back Method helps you understand the information we are giving you. After you talk with the staff, tell them in your own words what you learned. This helps to make sure the staff has described each thing clearly. It also helps to explain things that may have been confusing. Before going home, make sure you are able to do these: ? I can tell you about my condition. ? I can tell you what changes I need to make with my diet or drugs. ? I can tell you what I will do if I have pain or cramping in my lower belly or I have more belly pain. Where can I learn more? [employer] http://patients.gi.org/topics/fhevlynmqszjqg-iyo-xlaltgpramahds/ FamilyDoctor.org http://familydoctor.org/familydoctor/en/diseases-conditions/diverticular-disease .html National Digestive Diseases Information Clearinghouse http://digestive.niddk.nih.gov/ddiseases/pubs/diverticulosis/index.aspx National Organization for Rare Disorders http://www.rarediseases.org/toky-regxlty-kjrrpzrcxkh/rare-diseases/byID/464/view Abstract Consumer Information Use and Disclaimer: This information is not specific medical advice and does not replace information you receive from your health care provider. This is only a brief summary of general information. It does NOT include all information about conditions, illnesses, injuries, tests, procedures, treatments, therapies, discharge instructions or life-style choices that may apply to you. You must talk with your health care provider for complete information about your health and treatment options. This information should not be used to decide whether or not to accept your health care provider s advice, instructions or recommendations. Only your health care provider has the knowledge and training to provide advice that is right for you. Last Reviewed Date 2017-02-05 Last Updated 02/06/17 metoprolol Pronunciation: me DOTTY hummel Brand: Judi Lozano, Lopressor, Metoprolol Succinate ER, Metoprolol Tartrate, Toprol-XL What is the most important information I should know about metoprolol? You should not use this medicine if you have a serious heart problem (heart block, sick sinus syndrome, slow heart rate), severe circulation problems, severe heart failure, or a history of slow heartbeats that caused fainting. What is metoprolol? Metoprolol is a beta-roel that affects the heart and circulation (blood flow through arteries and veins). Metoprolol is used to treat angina (chest pain) and hypertension (high blood pressure). It is also used to lower your risk of or needing to be hospitalized for heart failure. Metoprolol may also be used for other purposes not listed in this medication guide. What should I discuss with my healthcare provider before taking metoprolol? You should not use this medicine if you are allergic to metoprolol, or other beta-blockers (atenolol, carvedilol, labetalol, nadolol, nebivolol, propranolol, sotalol, and others), or if you have: a serious heart problem such as heart block, sick sinus syndrome, or slow heart rate; severe circulation problems; severe heart failure (that required you to be in the hospital); or a history of slow heart beats that have caused you to faint. Tell your doctor if you have ever had: asthma, chronic obstructive pulmonary disease (COPD), sleep apnea, or other breathing disorder; diabetes (taking metoprolol may make it harder for you to tell when you have low blood sugar); liver disease; congestive heart failure; problems with circulation (such as Raynaud's syndrome); a thyroid disorder; or pheochromocytoma (tumor of the adrenal gland). Do not give this medicine to a child without medical advice. Tell your doctor if you are or plan to become . It is not known whether metoprololwill harm an unborn baby. However, having high blood pressure during may cause complications such as diabetes or eclampsia (dangerously high blood pressure that can lead to medical problemsin both mother and baby). The benefit of treating hypertension may outweigh any risks to the baby. Ask a doctor before using this medicine if you are breast-feeding. Metoprolol can pass into breast milk and may cause dry skin, dry mouth, diarrhea, constipation, or slow heartbeats in your baby. How should I take metoprolol? Follow all directions on your prescription label and read all medication guides or instruction sheets. Your doctor may occasionally change your dose. Use the medicine exactly as directed. Metoprolol should be taken with a meal or just after a meal. Take the medicine at the same time each day. Swallow the capsule whole and do not crush, chew, break, or open it. A Toprol XL tablet can be divided in half if your doctor has told you to do so. Swallow the half-tablet whole, without chewing or crushing. You will need frequent medical tests, and your blood pressure will need to be checked often. If you need surgery, tell the surgeon ahead of time that you are using metoprolol. You should not stop using metoprolol suddenly. Stopping suddenly may make your condition worse. If you have high blood pressure, keep using this medicine even if you feel well. High blood pressure often has no symptoms. You may need to use metoprolol for the rest of your life. Store at room temperature away from moisture and heat. What happens if I miss a dose? Skip the missed dose and use your next dose at the regular time. Do not use two doses at one time. What happens if I overdose? Seek emergency medical attention or call the Poison Help line at . What should I avoid while taking metoprolol? Avoid driving or hazardous activity until you know how this medicine will affect you. Your reactions could be impaired. Drinking alcohol can increase certain side effects of metoprolol. What are the possible side effects of metoprolol? Get emergency medical help if you have signs of an allergic reaction: hives; difficulty breathing; swelling of your face, lips, tongue, or throat. Call your doctor at once if you have: very slow heartbeats; a light-headed feeling, like you might pass out; shortness of breath (even with mild exertion), swelling, rapid weight gain; or cold feeling in your hands and feet. Common side effects may include: dizziness, tired feeling; depression, confusion, memory problems; nightmares, trouble sleeping; diarrhea; or mild itching or rash. This is not a complete list of side effects and others may occur. Call your doctor for medical advice about side effects. You may report side effects to FDA at 4-722-WQY-9670. What other drugs will affect metoprolol? Tell your doctor about all your current medicines. Many drugs can affect metoprolol, especially: any other heart or blood pressure medications; epinephrine (Epi-Pen); an antidepressant; an ergot medicine --dihydroergotamine, ergonovine, ergotamine, methylergonovine; or an MAO inhibitor --isocarboxazid, linezolid, phenelzine, rasagiline, selegiline, tranylcypromine. This list is not complete and many other drugs may affect metoprolol. This includes prescription and vich-kuv-hqwwnfu medicines, vitamins, and herbal products. Not all possible drug interactions are listed here. Where can I get more information? Your pharmacist can provide more information about metoprolol. Remember, keep this and all other medicines out of the reach of children, never share your medicines with others, and use this medication only for the indication prescribed. Every effort has been made to ensure that the information provided by [employer]. ('[employer]') is accurate, up-to-date, and complete, but no guarantee is made to that effect. Drug information contained herein may be time sensitive. [employer] information has been compiled for use by healthcare practitioners and consumers in the [place] and therefore [employer] does not warrant that uses outside of the [place] are appropriate, unless specifically indicated otherwise. [employer] drug information does not endorse drugs, diagnose patients or recommend therapy. [employer] drug information isan informational resource designed to assist licensed healthcare practitioners in caring for their p atients and/or to serve consumers viewing this service as a supplement to, and not a substitute for, the expertise, skill, knowledge and judgment of healthcare practitioners. The absence of a warningfor a given drug or drug combination in no way should be construed to indicate that the drug or drug combination is safe, effective or appropriate for any given patient. [employer] does not assume any responsibility for any aspect of healthcare administered with the aid of information [employer] provides. The information contained herein is not intended to cover all possible uses, directions, precautions, warnings, drug interactions, allergic reactions, or adverse effects. If you have questions about the drugs you are taking, check with your doctor, nurse or pharmacist. Copyright 2232-0684 [employer]. Version: 17.01. Revision date: 05/02/2018. Care instructions adapted under license by [employer]. If you have questions about a medical condition or this instruction, always ask your healthcare professional. [employer] disclaims any warranty or liability for your use of this information. tramadol Pronunciation: TRAM a dol Brand: ConZip, Ultram, Ultram ER What is the most important information I should know about tramadol? MISUSE OF THIS MEDICINE CAN CAUSE ADDICTION, OVERDOSE, OR . Keep the medication in a place where others cannot get to it. Tramadol should not be given to a child younger than 12 years old. Ultram ER should not be given toanyone younger than 18 years old. Taking tramadol during may cause life-threatening withdrawal symptoms in the . Fatal side effects can occur if you use tramadol with alcohol, or with other drugs that cause drowsiness or slow your breathing. What is tramadol? Tramadol is an pain medicine similar to an opioid (sometimes called, a narcotic). Tramadol is used to treat moderate to severe pain. The extended-release form of this medicine is for pjwflm-dyf-dmjik treatment of pain. This form of tramadol is not for use on an as-needed basis for pain. Tramadol may also be used for purposes not listed in this medication guide. What should I discuss with my healthcare provider before taking tramadol? You should not take tramadol if you are allergic to it, or if you have: severe asthma or breathing problems; a blockage in your stomach or intestines; if you have recently used alcohol, sedatives, tranquilizers, or narcotic medications; or if you have used an MAO inhibitor in the past 14 days (such as isocarboxazid, linezolid, methylene blue injection, phenelzine, rasagiline, selegiline, or tranylcypromine). Tramadol should not be given to a child younger than 12 years old. Ultram ER should not be given toanyone younger than 18 years old. Do not give tramadol to anyone younger than 18 years old who recently had surgery to remove the tonsils or adenoids. Seizures have occurred in some people taking tramadol. Talk with your doctor about your seizure risk, which may be higher if you have ever had: a head injury, epilepsy or other seizure disorder; drug or alcohol addiction; or a metabolic disorder. Tell your doctor if you have ever had: liver or kidney disease; a stomach disorder; or mental illness, or suicide attempt. If you use tramadol while you are , your baby could become dependent on the drug. This can cause life-threatening withdrawal symptoms in the baby after it is born. Babies born dependent on habit-forming medicine may need medical treatment for several weeks. Do not breast-feed. Tramadol can pass into breast milk and cause drowsiness, breathing problems, ordeath in a nursing baby. How should I take tramadol? Follow the directions on your prescription label and read all medication guides. Never use tramadolin larger amounts, or for longer than prescribed. Tell your doctor if you feel an increased urge totake more of this medicine. Never share this medicine with another person, especially someone with a history of drug abuse or addiction. MISUSE CAN CAUSE ADDICTION, OVERDOSE, OR . Keep the medicine in a place where others cannot get to it. Selling or giving away tramadol is against the law. Stop taking all other rlqopn-fph-tbehq narcotic pain medications when you start taking tramadol. Tramadol can be taken with or without food, but take it the same way each time. Swallow the capsule or tablet whole to avoid exposure to a potentially fatal overdose. Do not crush, chew, break, open, or dissolve. Never crush or break a tramadol pill to inhale the powder or mix it into a liquid to inject the drug into your vein. This practice has resulted in . Do not stop using tramadol suddenly, or you could have unpleasant withdrawal symptoms. Ask your doctor how to safely stop using tramadol. Store at room temperature away from moisture and heat. Keep track of your medicine. You should be aware if anyone is using it improperly or without a prescription. Do not keep leftover opioid medication. Just one dose can cause in someone using this medicine accidentally or improperly. Ask your pharmacist where to locate a drug take-back disposal program.If there is no take-back program, flush the unused medicine down the toilet. What happens if I miss a dose? Since tramadol is used for pain, you are not likely to miss a dose. Skip any missed dose if it is almost time for your next dose. Do not use two doses at one time. What happens if I overdose? Seek emergency medical attention or call the Poison Help line at . A tramadol overdose can be fatal, especially in a child or other person using the medicine without a prescription. Overdose symptoms may include slow heart rate, severe drowsiness, cold and clammy skin, very slow breathing, or coma. What should I avoid while taking tramadol? Do not drink alcohol. Dangerous side effects or could occur. Avoid driving or hazardous activity until you know how this medicine will affect you. Dizziness or drowsiness can cause falls, accidents, or severe injuries. What are the possible side effects of tramadol? Get emergency medical help if you have signs of an allergic reaction (hives, difficult breathing, swelling in your face or throat) or a severe skin reaction (fever, sore throat, burning in your eyes,skin pain, red or purple skin rash that spreads and causes blistering and peeling). This medicine can slow or stop your breathing, and may occur. A person caring for you should seek emergency medical attention if you have slow breathing with long pauses, blue colored lips, or if you are hard to wake up. Call your doctor at once if you have: noisy breathing, sighing, shallow breathing; a slow heart rate or weak pulse; a light-headed feeling, like you might pass out; seizure (convulsions); or low cortisol levels --nausea, vomiting, loss of appetite, dizziness, worsening tiredness or weakness. Seek medical attention right away if you have symptoms of serotonin syndrome, such as: agitation, hallucinations, fever, sweating, shivering, fast heart rate, muscle stiffness, twitching, loss of coordination, nausea, vomiting, or diarrhea. Serious side effects may be more likely in older adults and those who are overweight, malnourished,or debilitated. Long-term use of opioid medication may affect fertility (ability to have children) in men or women.It is not known whether opioid effects on fertility are permanent. Common side effects may include: dizziness, drowsiness; headache; or constipation, nausea, vomiting, stomach pain. This is not a complete list of side effects and others may occur. Call your doctor for medical advice about side effects. You may report side effects to FDA at 0-769-NNS-3678. What other drugs will affect tramadol? You may have breathing problems or withdrawal symptoms if you start or stop taking certain other medicines. Tell your doctor if you also use an antibiotic, antifungal medication, heart or blood pressure medication, seizure medication, or medicine to treat HIV or hepatitis C. Opioid medication can interact with many other drugs and cause dangerous side effects or . Be sure your doctor knows if you also use: cold or allergy medicines, bronchodilator asthma/COPD medication, or a diuretic ( water pill ); medicines for motion sickness, irritable bowel syndrome, or overactive bladder; other narcotic medications --opioid pain medicine or prescription cough medicine; a sedative like Valium --diazepam, alprazolam, lorazepam, Xanax, Klonopin, Versed, and others; drugs that make you sleepy or slow your breathing --a sleeping pill, muscle relaxer, medicine to treat mood disorders or mental illness; or drugs that affect serotonin levels in your body --a stimulant, or medicine for depression, Parkinson's disease, migraine headaches, serious infections, or nausea and vomiting. This list is not complete and many other drugs may affect tramadol. This includes prescription and tmzg-fgc-qqiesal medicines, vitamins, and herbal products. Not all possible drug interactions are listed here. Where can I get more information? Your doctor or pharmacist can provide more information about tramadol. Remember, keep this and all other medicines out of the reach of children, never share your medicines with others, and use this medication only for the indication prescribed. Every effort has been made to ensure that the information provided by [employer] is accurate, up-to-date, and complete, but no guarantee is made to that effect. Drug information contained herein may be time sensitive. [employer] information has been compiled for use by healthcare practitioners and consumers in the [place] and therefore [employer] does not warrant that uses outside of the [place] are appropriate, unless specifically indicated otherwise. [employer] drug information does not endorse drugs, diagnose patients or recommend therapy. [employer] drug information isan informational resource designed to assist licensed healthcare practitioners in caring for their p atients and/or to serve consumers viewing this service as a supplement to, and not a substitute for, the expertise, skill, knowledge and judgment of healthcare practitioners. The absence of a warningfor a given drug or drug combination in no way should be construed to indicate that the drug or drug combination is safe, effective or appropriate for any given patient. [facility] does not assume any responsibility for any aspect of healthcare administered with the aid of information [facility] provides. The information contained herein is not intended to cover all possible uses, directions, precautions, warnings, drug interactions, allergic reactions, or adverse effects. If you have questions about the drugs you are taking, check with your doctor, nurse or pharmacist. Copyright 7195-7956 [employer]. Version: 18.02. Revision date: 08/20/2018. Care instructions adapted under license by [employer]. If you have questions about a medical condition or this instruction, always ask your healthcare professional. [employer] disclaims any warranty or liability for your use of this information. warfarin (oral) Pronunciation: WAR far in Brand: Coumadin, Abnertoven What is the most important information I should know about warfarin? You should not take warfarin if you are prone to bleeding because of a medical condition, if you have an upcoming surgery, or if you need a spinal tap or epidural. Do not take warfarin if you cannot take it on time every day. Warfarin increases your risk of severe or fatal bleeding, especially if you have certain medical conditions, if you are 65 or older, or if you have had a stroke, or bleeding in your stomach or intestines. Seek emergency help if you have any bleeding that will not stop. Call your doctor at once if you have other signs of bleeding such as: swelling, pain, feeling very weak or dizzy, unusual bruising, bleeding gums, nosebleeds, heavy menstrual periods or abnormal vaginal bleeding, blood in your urine, bloody or tarry stools, coughing up blood or vomit that looks like coffee grounds. Many other drugs can increase your risk of bleeding when used with warfarin. Tell your doctor aboutall medicines you have recently used. Avoid making any changes in your diet without first talking to your doctor. Some foods can make warfarin less effective. What is warfarin? Warfarin is an anticoagulant (blood thinner). Warfarin reduces the formation of blood clots. Warfarin is used to treat or prevent blood clots in veins or arteries, which can reduce the risk ofstroke, heart attack, or other serious conditions. Warfarin may also be used for purposes not listed in this medication guide. What should I discuss with my healthcare provider before taking warfarin? You should not take warfarin if you are allergic to it, or if: you have very high blood pressure; you recently had or will have surgery on your brain, spine, or eye; you undergo a spinal tap or spinal anesthesia (epidural); or you cannot take warfarin on time every day. You also should not take warfarin if you are are prone to bleeding because of a medical condition, such as: a blood cell disorder (such as low red blood cells or low platelets); ulcers or bleeding in your stomach, intestines, lungs, or urinary tract; an aneurysm or bleeding in the brain; or an infection of the lining of your heart. Do not take warfarin if you are , unless your doctor tells you to. Warfarin can cause birthdefects, but preventing blood clots may outweigh any risks to the baby. If you are not , use effective control to prevent while taking warfarin and for at least 1 month after your last dose. Tell your doctor right away if you become . Warfarin can make you bleed more easily, especially if you have ever had: high blood pressure or serious heart disease; kidney disease; cancer or low blood cell counts; an accident or surgery; bleeding in your stomach or intestines; a stroke; or if you are 65 or older. To make sure warfarin is safe for you, tell your doctor if you have ever had: diabetes; congestive heart failure; liver disease, kidney disease (or if you are on dialysis); a hereditary clotting deficiency; or low blood platelets after receiving heparin. It is not known whether warfarin passes into breast milk. Watch for signs of bruising or bleeding in the baby if you take warfarin while you are breast- feeding a baby. How should I take warfarin? Follow all directions on your prescription label. Your doctor may occasionally change your dose. Donot take warfarin in larger or smaller amounts or for longer than your doctor tells you to. Take warfarin at the same time every day, with or without food. Never take a double dose. Warfarin can make it easier for you to bleed. Seek emergency help if you have any bleeding that will not stop. You will need frequent INR or prothrombin time tests (to measure your blood- clotting time and determine your warfarin dose). You must remain under the care of a doctor while taking warfarin. If you receive warfarin in a hospital, call or visit your doctor 3 to 7 days after you leave the hospital. Your INR will need to be tested at that time. Do not miss any follow-up appointments. Tell your doctor if you are sick with diarrhea, fever, chills, or flu symptoms, or if your body weight changes. You may need to stop taking warfarin 5 to 7 days before having any surgery, dental work, or a medical procedure. Call your doctor for instructions. Wear a medical alert tag or carry an ID card stating that you take warfarin. Any medical care provider who treats you should know that you are taking this medicine. Store at room temperature away from heat, moisture, and light. What happens if I miss a dose? Take the missed dose as soon as you remember. Skip the missed dose if it is almost time for your next scheduled dose. Do not take extra medicine to make up the missed dose. What happens if I overdose? Seek emergency medical attention or call the Poison Help line at . An overdose can cause excessive bleeding. What should I avoid while taking warfarin? Avoid activities that may increase your risk of bleeding or injury. Use extra care to prevent bleeding while shaving or brushing your teeth. You may still bleed more easily for several days after youstop taking warfarin. Avoid making any changes in your diet without first talking to your doctor. Foods that are high in vitamin K (liver, leafy green vegetables, or vegetable oils) can make warfarin less effective. If these foods are part of your diet, eat a consistent amount on a weekly basis. Grapefruit juice, cranberry juice, frank juice, and pomegranate juice may interact with warfarin andlead to unwanted side effects. Avoid the use of these juice products while taking warfarin. Avoid drinking alcohol. Ask your doctor before using any medicine for pain, arthritis, fever, or swelling. This includes aspirin, ibuprofen (Advil, Motrin), naproxen (Aleve), celecoxib (Celebrex), diclofenac, indomethacin, meloxicam, and others. These medicines may affect blood clotting and may also increase your risk of stomach bleeding. What are the possible side effects of warfarin? Get emergency medical help if you have signs of an allergic reaction: hives; difficult breathing; swelling of your face, lips, tongue, or throat. Warfarin increases your risk of bleeding, which can be severe or life- threatening. Call your doctorat once if you have any signs of bleeding such as: sudden headache, feeling very weak or dizzy; swelling, pain, unusual bruising; bleeding gums, nosebleeds; bleeding from wounds or needle injections that will not stop; heavy menstrual periods or abnormal vaginal bleeding; blood in your urine, bloody or tarry stools; or coughing up blood or vomit that looks like coffee grounds. Clots formed by warfarin may block normal blood flow, which could lead to tissue or amputation of the affected body part. Get medical help at once if you have: pain, swelling, hot or cold feeling, skin changes, or discoloration anywhere on your body; or sudden and severe leg or foot pain, foot ulcer, purple toes or fingers. Bleeding is the most common side effect of warfarin. This is not a complete list of side effects and others may occur. Call your doctor for medical advice about side effects. You may report side effects to FDA at 3-520-FNL-3698. What other drugs will affect warfarin? Many drugs (including some dbve-rch-ipxxhfx medicines and herbal products) can affect your INR and may increase the risk of bleeding if you take them with warfarin. Not all possible drug interactionsare listed in this medication guide. It is very important to ask your doctor and pharmacist before you start or stop using any other medicine, especially: other medicines to prevent blood clots; an antibiotic or antifungal medicine; supplements that contain vitamin K; or herbal (botanical) products --coenzyme Q10, cranberry, echinacea, garlic, ginkgo biloba, ginseng, goldenseal, or Lilibeth's wort. This list is not complete and many other drugs can interact with warfarin. This includes prescription and nldd-gmv-juddezk medicines, vitamins, and herbal products. Give a list of all your medicines to any healthcare provider who treats you. Where can I get more information? Your pharmacist can provide more information about warfarin. Remember, keep this and all other medicines out of the reach of children, never share your medicines with others, and use this medication only for the indication prescribed. Every effort has been made to ensure that the information provided by [employer] is accurate, up-to-date, and complete, but no guarantee is made to that effect. Drug information contained herein may be time sensitive. [employer] information has been compiled for use by healthcare practitioners and consumers in the [place] and therefore [employer] does not warrant that uses outside of the [place] are appropriate, unless specifically indicated otherwise. [employer] drug information does not endorse drugs, diagnose patients or recommend therapy. [employer] drug information isan informational resource designed to assist licensed healthcare practitioners in caring for their p atients and/or to serve consumers viewing this service as a supplement to, and not a substitute for, the expertise, skill, knowledge and judgment of healthcare practitioners. The absence of a warningfor a given drug or drug combination in no way should be construed to indicate that the drug or drug combination is safe, effective or appropriate for any given patient. [employer] does not assume any responsibility for any aspect of healthcare administered with the aid of information [employer] provides. The information contained herein is not intended to cover all possible uses, directions, precautions, warnings, drug interactions, allergic reactions, or adverse effects. If you have questions about the drugs you are taking, check with your doctor, nurse or pharmacist. Copyright 8160-8026 [employer]. Version: 22.01. Revision date: 06/06/2017. Care instructions adapted under license by [employer]. If you have questions about a medical condition or this instruction, always ask your healthcare professional. [employer] disclaims any warranty or liability for your use of this information. documented in this encounter* Attachments The following attachments cannot be sent through Care Everywhere. * DVT (Deep Vein Thrombosis): General Info ([place]) documented in this encounter Summary Purpose Family History No Family History Records FoundNo Family History Records FoundNo Family History Records FoundNo Family History Records Found Additional Source Comments Reason for Visit (unrecogniz ed section and content) Reason Comments Leg Swelling Foot Swelling Reason Comments Leg Swelling pt c/o b/l foot swel ling x 2 weeks. Pt reports being unable to walk. Pt was seen at [facility] 06/02, and also 06/11. Reason Comments Leg Pain Reason Comments Facial Swelling Reason Comments Joint Pain Reason Onset Date Comments Orders 05/24/2023 Reason Onset Date Comments Letter for School/Work 06/12/2023 Handicap Rx Ordered Prescriptions (unrec ognized section and content) Prescription Sig Dispensed Refills Start Date End Da te linezolid (ZYVOX) 600 MG tablet Take 1 tablet by mouth 2 times daily for 3 days 6 tablet 0 08/09/2021 08/12/2021 oxyCODONE-acetaminophen (PERCOCET) 5-325 MG per tabletIndications:Presept al cellulitis of right upper eyelid Take 1 tablet by mouth every 6 hours as needed for Pain for up to 7 days. 21 tablet 0 08/09/2021 08/16/2021 Scheduled Active and Recently Administ ered Medications (unrecognized section and content) Scheduled Medication Order 08/07/2021 08/08/2021 08/09/2021 ampicillin-sulbactam (UNASYN) 3,000 mg in sodium chloride 0.9 % 100 mL IVPB (ADD-VANTAGE) (CANCELED) 3,000 mg, IntraVENous, at 200 mL/hr, Administer over 30 Minutes, EVERY 8 HOURS, First dose on 08/06/21 at 2000 0454 (New Bag - Provider: Carlene Soler RN)0524 (Stopped - Provider: Carlene Soler RN) apixaban (ELIQUIS) tablet 5 mg 5 mg, Oral, 2 TIMES DAILY, First dose on 08/06/21 at 2100, ANTICOAGULANT 1058 (Given - Provider: Rimma Thompson RN)0 (Given - Provider: Blaire Ramírez RN) 0752 (Given - Provider: Kay Treadwell, MIRIAN)1958 (Given - Provider: Blaire Ramírez RN) 0933 (Given - Provider: Hipolito Zaman RN)2100 (Due) FLUoxetine (PROZAC) capsule 20 mg 20 mg, Oral, DAILY, First dose on 08/06/21 at 1927 1058 (Given - Provider: Rimma Thompson RN) 0752 (Given - Provider: Kay Treadwell, MIRIAN) 0933 (Given - Provider: iHpolito Zaman RN) levothyroxine (SYNTHROID) tablet 175 mcg 175 mcg, Oral, DAILY, First dose on 08/06/21 at 1936, Tube feeding (TF) interaction, obtain physician order to manage, recommend holding TF for 30 minutes before and after dose. 1059 (Given - Provider: Rimma Thompson RN) 0541 (Given - Provider: Blaire Ramírez RN) 0555 (Given - Provider: Blaire Ramírez RN) linezolid (ZYVOX) tablet 600 mg 600 mg, Oral, 2 TIMES DAILY, First dose on Sat08/07/21 at 1100, Avoid aged, smoked, or fermented foods including cheese, sour cream, soy sauce, sauerkraut, yogurt, sausage, pepperoni, salami, and dried fruit. Limit caffeine. 1206 (Given - Provider: Rimma Thompson RN)2049 (Given - Provider: Blaire Ramírez RN) 0849 (Given - Provider: Kay Treadwell RN)1958 (Given - Provider: Blaire Ramírez RN) 0933 (Given - Provider: Hipolito Zaman RN)2200 (Due) metoprolol tartrate (LOPRESSOR) tablet 25 mg 25 mg, Oral, 2 TIMES DAILY, First dose on 08/06/21 at 2100 1100 (Given - Provider: Rimma Thompson RN)2049 (Given - Provider: Blaire Ramírez RN) 0752 (Given - Provider: Kay Treadwell RN)1956 (Given - Provider: Blaire Ramírez RN) 0933 (Given - Provider: Hipolito Zaman RN)2100 (Due) QUEtiapine (SEROQUEL) tablet 200 mg 200 mg, Oral, DAILY, First dose on Sat08/06/21 at 1927 1058 (Given - Provider: Rimma Thompson RN) 0752 (Given - Provider: Kay Treadwell RN) 0933 (Given - Provider: Hipolito Zaman RN) sodium chloride flush 0.9 % injection 5-40 mL 5-40 mL, IntraVENous, EVERY 12 HOURS SCHEDULED (2 times per day), First dose on 08/06/21 at 2100, For Line Patency: Peripheral IV = 5 mL; Midline or Central Line = 10 mL/lumen. If following IV push medication, administer flush at same rate as the IV push. Flush volume is determined by type of infusion therapy being given. For non-viscous solutions use: Peripheral IV = 5 mL Midline or Central Line = 10 mL/lumen For viscous solutions (i.e. blood components, parenteral nutrition, contrast media, or after obtaining blood sample) use: Peripheral IV = 10 mL Midline or Central Line = 20 mL/lumen 2049 (Given - Provider: Blaire Ramírez, MIRIAN) 752 (Given - Provider: Kay Treadwell, MIRIAN)075 (Given - Provider: Kay Treadwell RN)1956 (Given - Provider: Blaire Ramírez RN) 0933 (Given - Provider: Hipolito Zaman RN)2100 (Due) vancomycin (VANCOCIN) 1500 mg in dextrose 5 % 250 mL IVPB (CANCELED) 1,500 mg (8.61 mg/kg), IntraVENous, at 166.7 mL/hr, Administer over 90 Minutes, EVERY 12 HOURS, First dose on 08/07/21 at 0100 0140 (New Bag - Provider: Carlene Soler RN)0310 (Stopped - Provider: Carlene Solre RN) PRN Medication Order 08/07/2021 08/08/2021 08/09/2021 0.9 % sodium chloride infusion 25 mL, IntraVENous, at 100 mL/hr, PRN, If patient receiving piggyback infusions without ordered maintenance IV fluids or with frequent/long duration piggyback infusions, Starting on 08/06/21 at 1926, Administer at the same rate as the piggyback being infused. acetaminophen (TYLENOL) suppository 650 mg(Linked Group 1) 650 mg, Rectal, EVERY 6 HOURS PRN, Pain Mild (1-3), Fever, For temp greater than 100.4 F (38 C), Starting on 08/06/21 at 1926, Administer if oral route cannot be used. acetaminophen (TYLENOL) tablet 650 mg(Linked Group 1) 650 mg, Oral, EVERY 6 HOURS PRN, Pain Mild (1-3), Fever, For temp greater than 100.4 F (38 C), Starting on 08/06/21 at 1926, Maximum dose of acetaminophen is 4000 mg from all sources in 24 hours. ketorolac (TORADOL) injection 15 mg 15 mg, IntraVENous, EVERY 6 HOURS PRN, Pain Severe (7-10), Starting on 08/06/21 at 1926, For 5 days, Do not administer for more than 5 days. 1517 (Given - Provider: Rimma Thompson RN) ondansetron (ZOFRAN) injection 4 mg(Linked Group 2) 4 mg, IntraVENous, EVERY 6 HOURS PRN, Nausea, Vomiting, Starting on 08/06/21 at 1926, Administer if oral route cannot be used. ondansetron (ZOFRAN-ODT) disintegrating tablet 4 mg(Linked Group 2) 4 mg, Oral, EVERY 8 HOURS PRN, Nausea, Vomiting, Starting on 08/06/21 at 1926 oxyCODONE-acetaminophen (PERCOCET) 5-325 MG per tablet 1 tablet 1 tablet, Oral, EVERY 6 HOURS PRN, Pain Moderate (4-6), Starting on 08/06/21 at 1926, Maximum dose of acetaminophen is 4000 mg from all sources in 24 hours. 1556 (Given - Provider: Rimma Thompson, MIRIAN) 0852 (Given - Provider: Kay Treadwell RN)1856 (Given - Provider: Dasia Barth, MIRIAN) 1229 (Given - Provider: Hipolito Zaman RN) polyethylene glycol (GLYCOLAX) packet 17 g 17 g, Oral, DAILY PRN, Constipation, Starting on 08/06/21 at 1926, First line therapy for constipation sodium chloride flush 0.9 % injection 5-40 mL 5-40 mL, IntraVENous, PRN, Line Care, After every IV line use, Starting on 08/06/21 at 1926, For Line Patency: Peripheral IV = 5 mL; Midline or Central Line = 10 mL/lumen. If following IV push medication, administer flush at same rate as the IV push. Flush volume is determined by type of infusion therapy being given. For non-viscous solutions use: Peripheral IV = 5 mL Midline or Central Line = 10 mL/lumen For viscous solutions (i.e. blood components, parenteral nutrition, contrast media, or after obtaining blood sample) use: Peripheral IV = 10 mL Midline or Central Line = 20 mL/lumen Linked Groups Order Group 1: acetaminophen (TYLENOL) tablet 650 mgJump to med 650 mg, Oral, EVERY 6 HOURS PRN, Pain Mild (1-3), Fever, For temp greater than 100.4 F (38 C), Starting on 08/06/21 at 1926
Maximum dose of acetaminophen is 4000 mg from all sources in 24 hours.
Or acetaminophen (TYLENOL) suppository 650 mgJump to med 650 mg, Rectal, EVERY 6 HOURS PRN, Pain Mild (1-3), Fever, For temp greater than 100.4 F (38 C), Starting on 08/06/21 at 1926
Administer if oral route cannot be used.
Group 2: ondansetron (ZOFRAN-ODT) disintegrating tablet 4 mgJump to med 4 mg, Oral, EVERY 8 HOURS PRN, Nausea, Vomiting, Starting on 08/06/21 at 1926 Or ondansetron (ZOFRAN) injection 4 mgJump to med 4 mg, IntraVENous, EVERY 6 HOURS PRN, Nausea, Vomiting, Starting on 08/06/21 at 1926
Administer if oral route cannot be used.
Care Teams (unrecognized sec tion and content) [employer] Relationship Specialty Start Date End Date Chayo Hamilton MD [address] [place] [address] [phone] PCP - General 07/19/16 [employer] Relationship Specialty Start Date End Date Chayo Hamilton MD [address] [place] [address] [phone] PCP - General 07/19/16 [employer] Relationship Specialty Start Date End Date Chayo Hamilton MD [address] [place] [address] [phone] PCP - General 07/19/16 [employer] Relationship Specialty Start Date End Date Chayo Hamilton MD [address] [place] [address] [phone] PCP - General 07/19/16 INFORMATION SOURCE (unrecogn ized section and content) DATE CREATED AUTHOR AUTHOR'S ORGANIZ ATION 05/21/2022 [facility] DATE CREATED AUTHOR AUTHOR'S ORGANIZ ATION 05/22/2022 [facility] DATE CREATED AUTHOR AUTHOR'S ORGANIZ ATION 05/25/2023 [facility] FOR RECORDS PERTAINING TO PATIENTS WHO ARE OR HAVE BEEN ENROLLED IN A CHEMICAL DEPENDENCY/SUBSTANCEABUSE PROGRAM, SOME INFORMATION MAY BE OMITTED. This clinical summary was aggregated from multiple sources. Caution should be exercised in using it in the provision of clinical care. This summary normalizes information from multiple sources, and as a consequence, information in this document may materially change the coding, format and clinical context of patient data. In addition, data may be omitted in some cases. CLINICAL DECISIONS SHOULD BE BASED ON THE PRIMARY CLINICAL RECORDS. [employer] [facility]. provides no warranty or guarantee of the accuracy or completeness of information in this document.
[2023-10-09 17:41] LABS: Absolute Lymphocyte Count 1.98 X10^3/uL (0.83-4.51); Absolute Neutrophil Count 4.6 X10^3/uL (2.0-7.7); Basophil# 0.06 X10^3/uL; Basophil% 0.8 % (0-1); Eosinophil# 0.23 X10^3/uL; Hematocrit 38.2 % (37-47); Hemoglobin 12.5 g/dL (12.0-15.0); Lymphocyte # 1.98 X10^3/ul (0.83-4.51); Lymphocyte % 25.5 % (19-41); Mean Corp Hgb Conc 32.7 g/dL (32-36); Mean Corpuscular Hgb 31.4 pg (27.0-32.0); Mean Platelet Vol. 11.3 fl (6.2-12.0); Monocyte# 0.92 X10^3/uL; Monocyte% 11.9 % (0-10); NRBC Flagged by Analyzer 0 % (0-5); Neutrophil # 4.56 X10^3/uL (2.7-7.7); Neutrophil % 58.7 % (47-70); Platelet Count 339 K/mm3 (150-450); RBC Distribution Width CV 13.9 % (11.6-14.6); RBC Distribution Width SD 48.9 fl (35.1-43.9); Red Blood Count 3.98 M/mm3 (4.2-5.4); White Blood Count 7.8 K/mm3 (4.4-11.0)
[2023-10-09 18:15] LABS: ALB/GLOB Ratio 0.9 RATIO (0.9-2.4); AST(SGOT) 22 U/L (15-37); Alanine Aminotransfer ALT/SGPT 24 U/L (13-56); Albumin, Serum 3.5 g/dL (3.2-5.0); Alkaline Phosphatase 91 U/L (45-117); Anion Gap 5 (5-15); BUN 28 mg/dL (7-18); BUN/Creat Ratio 17.3 RATIO (10-20); Calcium,Total 9.1 mg/dL (8.5-10.1); Chloride 109 mmol/L (98-107); Creatinine, Serum 1.62 mg/dL (0.55-1.02); EST Glomerular Filtration Rate 34 mL/min (>60); Est Glom Filt Rate - Afr Amer 41 mL/min (>60); Globulin 3.9 g/dL (2.2-4.2); Glucose 89 mg/dL (74-106); Potassium 4.4 mmol/L (3.5-5.1); Protein, Total 7.4 g/dL (6.4-8.2); Sodium Level 140 mmol/L (136-145)
== END | disposition home or self-care (01) ==
LOC: MTLAB 16:16
PROVIDERS: PCP Family Medicine; Referring Provider Internal Medicine Rheumatology; Visit Provider Internal Medicine Rheumatology
DX: M06.09 Rheumatoid arthritis without rheumatoid factor, multiple sites (principal); Z79.899 Other long term (current) drug therapy; M79.7 Fibromyalgia; M17.0 Bilateral primary osteoarthritis of knee; M47.897 Other spondylosis, lumbosacral region; I10 Essential (primary) hypertension; E78.5 Hyperlipidemia, unspecified; E03.9 Hypothyroidism, unspecified; Z86.718 Personal history of other venous thrombosis and embolism; F32.A Depression, unspecified; Z87.39 Personal history of other diseases of the musculoskeletal system and connective tissue; R73.02 Impaired glucose tolerance (oral)
CPT/HCPCS: 36415; 80053; 85025

== ENCOUNTER → 2023-12-05 | Outpatient (CLI) | payer BC, SELFPAY ==
[2023-12-05 17:45] LABS: Absolute Lymphocyte Count 1.93 X10^3/uL (0.83-4.51); Absolute Neutrophil Count 4.3 X10^3/uL (2.0-7.7); Basophil# 0.06 X10^3/uL; Basophil% 0.8 % (0-1); Eosinophil# 0.14 X10^3/uL; Hematocrit 36.8 % (37-47); Hemoglobin 11.9 g/dL (12.0-15.0); Lymphocyte # 1.93 X10^3/ul (0.83-4.51); Lymphocyte % 27.2 % (19-41); Mean Corp Hgb Conc 32.3 g/dL (32-36); Mean Corpuscular Hgb 29.6 pg (27.0-32.0); Mean Corpuscular Volume 91.5 fL (81-99); Mean Platelet Vol. 11.3 fl (6.2-12.0); Monocyte# 0.66 X10^3/uL; Monocyte% 9.3 % (0-10); NRBC Flagged by Analyzer 0 % (0-5); Neutrophil # 4.25 X10^3/uL (2.7-7.7); Neutrophil % 59.9 % (47-70); Platelet Count 377 K/mm3 (150-450); RBC Distribution Width CV 13.8 % (11.6-14.6); RBC Distribution Width SD 46.6 fl (35.1-43.9); Red Blood Count 4.02 M/mm3 (4.2-5.4); White Blood Count 7.1 K/mm3 (4.4-11.0)
[2023-12-05 18:08] LABS: ALB/GLOB Ratio 0.8 RATIO (0.9-2.4); AST(SGOT) 22 U/L (15-37); Alanine Aminotransfer ALT/SGPT 26 U/L (13-56); Albumin, Serum 3.5 g/dL (3.2-5.0); Alkaline Phosphatase 92 U/L (45-117); Anion Gap 9 (5-15); BUN 18 mg/dL (7-18); BUN/Creat Ratio 13.2 RATIO (10-20); Chloride 107 mmol/L (98-107); Creatinine, Serum 1.36 mg/dL (0.55-1.02); EST Glomerular Filtration Rate 42 mL/min (>60); Est Glom Filt Rate - Afr Amer 51 mL/min (>60); Globulin 4.2 g/dL (2.2-4.2); Glucose 78 mg/dL (74-106); Potassium 4.2 mmol/L (3.5-5.1); Protein, Total 7.7 g/dL (6.4-8.2); Sodium Level 141 mmol/L (136-145)
[2023-12-07 13:08] LABS: QNTFERON TB Mitogen Value > 10.00 IU/mL (.); QNTFERON TB Nil Value 0.01 IU/mL (.); QNTFERON TB1+ Ag Value 0.06 IU/mL (.); QNTIFERON TB Positive Criteria Negative (Negative)
== END | disposition home or self-care (01) ==
LOC: MTLAB 15:01
PROVIDERS: PCP Family Medicine; Referring Provider Internal Medicine Rheumatology; Visit Provider Internal Medicine Rheumatology
DX: M06.00 Rheumatoid arthritis without rheumatoid factor, unspecified site (principal); Z79.899 Other long term (current) drug therapy; M79.7 Fibromyalgia; M17.0 Bilateral primary osteoarthritis of knee
CPT/HCPCS: 36415; 80053; 85025; 86480

== ENCOUNTER → 2024-03-25 | Outpatient (CLI) | payer BC, SELFPAY ==
[2024-03-25 12:22] LABS: Absolute Lymphocyte Count 1.66 X10^3/uL (0.83-4.51); Absolute Neutrophil Count 4.2 X10^3/uL (2.0-7.7); Basophil# 0.05 X10^3/uL; Basophil% 0.8 % (0-1); Eosinophil# 0.17 X10^3/uL; Eosinophils% 2.6 % (0-5); Hematocrit 37.6 % (37-47); Hemoglobin 11.9 g/dL (12.0-15.0); Lymphocyte # 1.66 X10^3/ul (0.83-4.51); Lymphocyte % 25.5 % (19-41); Mean Corp Hgb Conc 31.6 g/dL (32-36); Mean Corpuscular Hgb 27.4 pg (27.0-32.0); Mean Corpuscular Volume 86.4 fL (81-99); Mean Platelet Vol. 11.8 fl (6.2-12.0); Monocyte# 0.44 X10^3/uL; Monocyte% 6.8 % (0-10); NRBC Flagged by Analyzer 0 % (0-5); Neutrophil # 4.17 X10^3/uL (2.7-7.7); Neutrophil % 64.1 % (47-70); Platelet Count 322 K/mm3 (150-450); RBC Distribution Width SD 50.4 fl (35.1-43.9); Red Blood Count 4.35 M/mm3 (4.2-5.4); White Blood Count 6.5 K/mm3 (4.4-11.0)
[2024-03-25 12:43] LABS: ALB/GLOB Ratio 0.8 RATIO (0.9-2.4); AST(SGOT) 20 U/L (15-37); Alanine Aminotransfer ALT/SGPT 22 U/L (13-56); Albumin, Serum 3.4 g/dL (3.2-5.0); Alkaline Phosphatase 95 U/L (45-117); Anion Gap 9 (5-15); BUN 19 mg/dL (7-18); BUN/Creat Ratio 16.5 RATIO (10-20); Calcium,Total 9.3 mg/dL (8.5-10.1); Chloride 107 mmol/L (98-107); Creatinine, Serum 1.15 mg/dL (0.55-1.02); EST Glomerular Filtration Rate 51 mL/min (>60); Est Glom Filt Rate - Afr Amer 61 mL/min (>60); Glucose 113 mg/dL (74-106); Potassium 4.6 mmol/L (3.5-5.1); Protein, Total 7.4 g/dL (6.4-8.2); Sodium Level 139 mmol/L (136-145)
== END | disposition home or self-care (01) ==
PROVIDERS: PCP Family Medicine; Referring Provider Internal Medicine Rheumatology; Visit Provider Internal Medicine Rheumatology
DX: M06.09 Rheumatoid arthritis without rheumatoid factor, multiple sites (principal); Z79.899 Other long term (current) drug therapy
CPT/HCPCS: 36415; 80053; 85025

== ENCOUNTER → 2024-04-20 | Outpatient (CLI) | payer BC, SELFPAY ==
[2024-04-20 17:47] LABS: Absolute Lymphocyte Count 1.93 X10^3/uL (0.83-4.51); Absolute Neutrophil Count 4.9 X10^3/uL (2.0-7.7); Basophil# 0.05 X10^3/uL; Basophil% 0.7 % (0-1); Eosinophil# 0.11 X10^3/uL; Eosinophils% 1.5 % (0-5); Hematocrit 36.3 % (37-47); Hemoglobin 11.7 g/dL (12.0-15.0); Lymphocyte # 1.93 X10^3/ul (0.83-4.51); Lymphocyte % 25.5 % (19-41); Mean Corp Hgb Conc 32.2 g/dL (32-36); Mean Corpuscular Hgb 28.3 pg (27.0-32.0); Mean Corpuscular Volume 87.7 fL (81-99); Mean Platelet Vol. 10.8 fl (6.2-12.0); Monocyte% 6.6 % (0-10); NRBC Flagged by Analyzer 0 % (0-5); Neutrophil # 4.94 X10^3/uL (2.7-7.7); Neutrophil % 65.2 % (47-70); Platelet Count 318 K/mm3 (150-450); RBC Distribution Width CV 17.2 % (11.6-14.6); RBC Distribution Width SD 53.9 fl (35.1-43.9); Red Blood Count 4.14 M/mm3 (4.2-5.4); White Blood Count 7.6 K/mm3 (4.4-11.0)
[2024-04-20 18:04] LABS: ALB/GLOB Ratio 0.9 RATIO (0.9-2.4); AST(SGOT) 19 U/L (15-37); Alanine Aminotransfer ALT/SGPT 22 U/L (13-56); Albumin, Serum 3.5 g/dL (3.2-5.0); Alkaline Phosphatase 89 U/L (45-117); Anion Gap 7 (5-15); BUN 17 mg/dL (7-18); BUN/Creat Ratio 13.6 RATIO (10-20); Calcium,Total 9.1 mg/dL (8.5-10.1); Chloride 105 mmol/L (98-107); Creatinine, Serum 1.25 mg/dL (0.55-1.02); EST Glomerular Filtration Rate 46 mL/min (>60); Est Glom Filt Rate - Afr Amer 56 mL/min (>60); Globulin 4.1 g/dL (2.2-4.2); Glucose 145 mg/dL (74-106); Potassium 4.1 mmol/L (3.5-5.1); Protein, Total 7.6 g/dL (6.4-8.2); Sodium Level 137 mmol/L (136-145)
== END | disposition home or self-care (01) ==
LOC: MTLAB 15:56
PROVIDERS: PCP Family Medicine; Referring Provider Internal Medicine Rheumatology; Visit Provider Internal Medicine Rheumatology
DX: M06.09 Rheumatoid arthritis without rheumatoid factor, multiple sites (principal); M79.7 Fibromyalgia; M17.0 Bilateral primary osteoarthritis of knee; Z79.899 Other long term (current) drug therapy
CPT/HCPCS: 36415; 80053; 85025

== ENCOUNTER → 2024-07-16 | Outpatient (CLI) | payer BC, SELFPAY ==
[2024-07-16 17:53] LABS: Absolute Neutrophil Count 5.1 X10^3/uL (2.0-7.7); Basophil# 0.07 X10^3/uL; Basophil% 0.9 % (0-1); Eosinophil# 0.13 X10^3/uL; Eosinophils% 1.6 % (0-5); Hematocrit 34.2 % (37-47); Hemoglobin 10.6 g/dL (12.0-15.0); Lymphocyte % 24.8 % (19-41); Mean Corpuscular Hgb 28.3 pg (27.0-32.0); Mean Corpuscular Volume 91.2 fL (81-99); Mean Platelet Vol. 10.6 fl (6.2-12.0); Monocyte# 0.73 X10^3/uL; Monocyte% 9.1 % (0-10); NRBC Flagged by Analyzer 0 % (0-5); Neutrophil % 63.2 % (47-70); Platelet Count 373 K/mm3 (150-450); RBC Distribution Width CV 14.9 % (11.6-14.6); RBC Distribution Width SD 49.8 fl (35.1-43.9); Red Blood Count 3.75 M/mm3 (4.2-5.4); White Blood Count 8.1 K/mm3 (4.4-11.0)
[2024-07-16 19:24] LABS: ALB/GLOB Ratio 0.8 RATIO (0.9-2.4); AST(SGOT) 16 U/L (15-37); Alanine Aminotransfer ALT/SGPT 21 U/L (13-56); Albumin, Serum 3.6 g/dL (3.2-5.0); Alkaline Phosphatase 101 U/L (45-117); Anion Gap 5 (5-15); BUN 23 mg/dL (7-18); BUN/Creat Ratio 17.8 RATIO (10-20); Calcium,Total 9.5 mg/dL (8.5-10.1); Chloride 107 mmol/L (98-107); Creatinine, Serum 1.29 mg/dL (0.55-1.02); EST Glomerular Filtration Rate 44 mL/min (>60); Est Glom Filt Rate - Afr Amer 54 mL/min (>60); Globulin 4.4 g/dL (2.2-4.2); Glucose 88 mg/dL (74-106); Potassium 4.3 mmol/L (3.5-5.1); Sodium Level 138 mmol/L (136-145)
== END | disposition home or self-care (01) ==
PROVIDERS: PCP Family Medicine; Referring Provider Internal Medicine Rheumatology; Visit Provider Internal Medicine Rheumatology
DX: M06.09 Rheumatoid arthritis without rheumatoid factor, multiple sites (principal); M79.7 Fibromyalgia; M17.0 Bilateral primary osteoarthritis of knee; Z79.899 Other long term (current) drug therapy
CPT/HCPCS: 36415; 80053; 85025

== ENCOUNTER → 2024-08-17 | Outpatient (CLI) | payer BC, SELFPAY ==
[2024-08-17 10:30] LABS: Absolute Lymphocyte Count 1.28 X10^3/uL (0.83-4.51); Absolute Neutrophil Count 5.4 X10^3/uL (2.0-7.7); Basophil# 0.03 X10^3/uL; Basophil% 0.4 % (0-1); Eosinophil# 0.14 X10^3/uL; Eosinophils% 1.9 % (0-5); Hematocrit 38.2 % (37-47); Hemoglobin 12.1 g/dL (12.0-15.0); Lymphocyte # 1.28 X10^3/ul (0.83-4.51); Lymphocyte % 17.5 % (19-41); Mean Corp Hgb Conc 31.7 g/dL (32-36); Mean Corpuscular Hgb 28.7 pg (27.0-32.0); Mean Corpuscular Volume 90.7 fL (81-99); Monocyte# 0.48 X10^3/uL; Monocyte% 6.6 % (0-10); NRBC Flagged by Analyzer 0 % (0-5); Neutrophil # 5.36 X10^3/uL (2.7-7.7); Neutrophil % 73.2 % (47-70); Platelet Count 351 K/mm3 (150-450); RBC Distribution Width CV 16.6 % (11.6-14.6); RBC Distribution Width SD 54.6 fl (35.1-43.9); Red Blood Count 4.21 M/mm3 (4.2-5.4); White Blood Count 7.3 K/mm3 (4.4-11.0)
[2024-08-17 11:52] LABS: ALB/GLOB Ratio 0.8 RATIO (0.9-2.4); AST(SGOT) 21 U/L (15-37); Alanine Aminotransfer ALT/SGPT 22 U/L (13-56); Albumin, Serum 3.3 g/dL (3.2-5.0); Alkaline Phosphatase 99 U/L (45-117); Anion Gap 9 (5-15); BUN 14 mg/dL (7-18); BUN/Creat Ratio 12.3 RATIO (10-20); Calcium,Total 9.3 mg/dL (8.5-10.1); Chloride 108 mmol/L (98-107); Creatinine, Serum 1.14 mg/dL (0.55-1.02); EST Glomerular Filtration Rate 51 mL/min (>60); Est Glom Filt Rate - Afr Amer 62 mL/min (>60); Globulin 4.3 g/dL (2.2-4.2); Glucose 165 mg/dL (74-106); Potassium 3.8 mmol/L (3.5-5.1); Protein, Total 7.6 g/dL (6.4-8.2); Sodium Level 138 mmol/L (136-145)
== END | disposition home or self-care (01) ==
PROVIDERS: PCP Family Medicine; Referring Provider Internal Medicine Rheumatology; Visit Provider Internal Medicine Rheumatology
DX: M06.09 Rheumatoid arthritis without rheumatoid factor, multiple sites (principal); Z79.899 Other long term (current) drug therapy; M79.7 Fibromyalgia
CPT/HCPCS: 36415; 80053; 85025

== ENCOUNTER → 2024-10-16 | Outpatient (CLI) | payer BC, SELFPAY ==
[2024-10-16 17:38] LABS: Absolute Neutrophil Count 4.8 X10^3/uL (2.0-7.7); Basophil# 0.07 X10^3/uL; Basophil% 0.9 % (0-1); Eosinophil# 0.14 X10^3/uL; Eosinophils% 1.8 % (0-5); Hematocrit 41.4 % (37-47); Hemoglobin 13.1 g/dL (12.0-15.0); Lymphocyte % 24.2 % (19-41); Mean Corp Hgb Conc 31.6 g/dL (32-36); Mean Corpuscular Hgb 28.2 pg (27.0-32.0); Mean Corpuscular Volume 89.2 fL (81-99); Mean Platelet Vol. 11.1 fl (6.2-12.0); Monocyte% 11.5 % (0-10); NRBC Flagged by Analyzer 0 % (0-5); Neutrophil # 4.83 X10^3/uL (2.7-7.7); Neutrophil % 61.5 % (47-70); Platelet Count 279 K/mm3 (150-450); RBC Distribution Width CV 15.9 % (11.6-14.6); RBC Distribution Width SD 51.7 fl (35.1-43.9); Red Blood Count 4.64 M/mm3 (4.2-5.4); White Blood Count 7.9 K/mm3 (4.4-11.0)
[2024-10-16 18:31] LABS: ALB/GLOB Ratio 0.8 RATIO (0.9-2.4); AST(SGOT) 20 U/L (15-37); Alanine Aminotransfer ALT/SGPT 26 U/L (13-56); Albumin, Serum 3.5 g/dL (3.2-5.0); Alkaline Phosphatase 111 U/L (45-117); Anion Gap 8 (5-15); BUN 19 mg/dL (7-18); BUN/Creat Ratio 15.7 RATIO (10-20); Calcium,Total 9.3 mg/dL (8.5-10.1); Chloride 106 mmol/L (98-107); Creatinine, Serum 1.21 mg/dL (0.55-1.02); EST Glomerular Filtration Rate 48 mL/min (>60); Est Glom Filt Rate - Afr Amer 58 mL/min (>60); Globulin 4.2 g/dL (2.2-4.2); Glucose 112 mg/dL (74-106); Potassium 4.2 mmol/L (3.5-5.1); Protein, Total 7.7 g/dL (6.4-8.2); Sodium Level 138 mmol/L (136-145)
== END | disposition home or self-care (01) ==
LOC: MTLAB 16:58
PROVIDERS: PCP Family Medicine; Referring Provider Internal Medicine Rheumatology; Visit Provider Internal Medicine Rheumatology
DX: M06.09 Rheumatoid arthritis without rheumatoid factor, multiple sites (principal); M79.7 Fibromyalgia; Z79.899 Other long term (current) drug therapy
CPT/HCPCS: 36415; 80053; 85025

== ENCOUNTER → 2024-12-21 | Outpatient (CLI) | payer BC, SELFPAY ==
[2024-12-21 18:19] LABS: Absolute Lymphocyte Count 2.11 X10^3/uL (0.83-4.51); Absolute Neutrophil Count 5.9 X10^3/uL (2.0-7.7); Basophil# 0.09 X10^3/uL; Eosinophil# 0.18 X10^3/uL; Eosinophils% 1.9 % (0-5); Hematocrit 41.5 % (37-47); Hemoglobin 13.7 g/dL (12.0-15.0); Lymphocyte # 2.11 X10^3/ul (0.83-4.51); Lymphocyte % 22.7 % (19-41); Mean Corpuscular Hgb 29.7 pg (27.0-32.0); Mean Platelet Vol. 11.5 fl (6.2-12.0); Monocyte# 0.98 X10^3/uL; Monocyte% 10.5 % (0-10); NRBC Flagged by Analyzer 0 % (0-5); Neutrophil # 5.91 X10^3/uL (2.7-7.7); Neutrophil % 63.7 % (47-70); Platelet Count 311 K/mm3 (150-450); RBC Distribution Width CV 15.1 % (11.6-14.6); RBC Distribution Width SD 49.5 fl (35.1-43.9); Red Blood Count 4.61 M/mm3 (4.2-5.4); White Blood Count 9.3 K/mm3 (4.4-11.0)
[2024-12-21 18:34] LABS: ALB/GLOB Ratio 1.2 RATIO (0.9-2.4); AST(SGOT) 26 U/L (<=31); Alanine Aminotransfer ALT/SGPT 20 U/L (<=34); Albumin, Serum 4.1 g/dL (3.4-4.8); Alkaline Phosphatase 108 U/L (35-104); Anion Gap 13 (5-15); BUN 15 mg/dL (4-19); BUN/Creat Ratio 12.3 RATIO (10-20); Calcium,Total 9.5 mg/dL (7.6-11.0); Carbon Dioxide 22.7 mmol/L (21.0-32.0); Chloride 104 mmol/L (98-108); Creatinine, Serum 1.24 mg/dL (0.70-1.20); EST Glomerular Filtration Rate 49 (>60); Globulin 3.5 g/dL (2.2-4.2); Glucose 78 mg/dL (70-99); Potassium 4.3 mmol/L (3.3-5.1); Protein, Total 7.6 g/dL (5.9-8.4); Sodium Level 139 mmol/L (133-145); Total Bilirubin 0.41 mg/dL (0.00-1.30)
== END | disposition home or self-care (01) ==
LOC: MTLAB 16:55
PROVIDERS: PCP Family Medicine; Referring Provider Internal Medicine Rheumatology; Visit Provider Internal Medicine Rheumatology
DX: M06.09 Rheumatoid arthritis without rheumatoid factor, multiple sites (principal); Z79.899 Other long term (current) drug therapy; M79.7 Fibromyalgia
CPT/HCPCS: 36415; 80053; 85025

== ENCOUNTER → 2025-03-12 | Outpatient (CLI) | payer BC, SELFPAY ==
[2025-03-12 17:38] LABS: ALB/GLOB Ratio 1.1 RATIO (0.9-2.4); AST(SGOT) 24 U/L (<=31); Alanine Aminotransfer ALT/SGPT 19 U/L (<=34); Albumin, Serum 3.9 g/dL (3.4-4.8); Alkaline Phosphatase 104 U/L (35-104); Anion Gap 13 (5-15); BUN 17 mg/dL (4-19); BUN/Creat Ratio 13.5 RATIO (10-20); Calcium,Total 9.5 mg/dL (7.6-11.0); Carbon Dioxide 24.4 mmol/L (21.0-32.0); Chloride 104 mmol/L (98-108); Creatinine, Serum 1.27 mg/dL (0.70-1.20); EST Glomerular Filtration Rate 48 (>60); Globulin 3.5 g/dL (2.2-4.2); Glucose 75 mg/dL (70-99); Potassium 3.6 mmol/L (3.3-5.1); Protein, Total 7.4 g/dL (5.9-8.4); Sodium Level 142 mmol/L (133-145); Total Bilirubin 0.36 mg/dL (0.00-1.30)
[2025-03-12 17:42] LABS: Absolute Lymphocyte Count 1.52 X10^3/uL (0.83-4.51); Absolute Neutrophil Count 5.7 X10^3/uL (2.0-7.7); Basophil# 0.07 X10^3/uL; Basophil% 0.9 % (0-1); Eosinophil# 0.17 X10^3/uL; Eosinophils% 2.1 % (0-5); Hematocrit 40.5 % (37-47); Hemoglobin 13.1 g/dL (12.0-15.0); Lymphocyte # 1.52 X10^3/ul (0.83-4.51); Lymphocyte % 18.8 % (19-41); Mean Corp Hgb Conc 32.3 g/dL (32-36); Mean Corpuscular Volume 92.7 fL (81-99); Mean Platelet Vol. 11.3 fl (6.2-12.0); Monocyte# 0.66 X10^3/uL; Monocyte% 8.1 % (0-10); NRBC Flagged by Analyzer 0 % (0-5); Neutrophil # 5.67 X10^3/uL (2.7-7.7); Platelet Count 311 K/mm3 (150-450); RBC Distribution Width CV 14.2 % (11.6-14.6); RBC Distribution Width SD 48.3 fl (35.1-43.9); Red Blood Count 4.37 M/mm3 (4.2-5.4); White Blood Count 8.1 K/mm3 (4.4-11.0)
== END | disposition home or self-care (01) ==
LOC: MTLAB 15:54
PROVIDERS: PCP Family Medicine; Referring Provider Internal Medicine Rheumatology; Visit Provider Internal Medicine Rheumatology
DX: M06.09 Rheumatoid arthritis without rheumatoid factor, multiple sites (principal); M79.7 Fibromyalgia; M17.0 Bilateral primary osteoarthritis of knee; Z79.899 Other long term (current) drug therapy
CPT/HCPCS: 36415; 80053; 85025

== ENCOUNTER → 2025-05-31 | Outpatient (CLI) | payer BC, SELFPAY ==
[2025-05-31 15:07] LABS: Hematocrit 32.9 % (37-47); Hemoglobin 10.6 g/dL (12.0-15.0); Immature Granulocytes Count 0.020 X10^3/uL (0.0-0.0); Mean Corp Hgb Conc 32.2 g/dL (32-36); Mean Corpuscular Volume 95.4 fL (81-99); Mean Platelet Vol. 11.3 fl (6.2-12.0); NRBC Flagged by Analyzer 0 % (0-5); Platelet Count 314 K/mm3 (150-450); RBC Distribution Width CV 14.9 % (11.6-14.6); RBC Distribution Width SD 51.5 fl (35.1-43.9); Red Blood Count 3.45 M/mm3 (4.2-5.4); White Blood Count 6.4 K/mm3 (4.4-11.0)
[2025-05-31 15:34] LABS: AST(SGOT) 19 U/L (<=31); Alanine Aminotransfer ALT/SGPT 16 U/L (<=34); Albumin, Serum 3.6 g/dL (3.4-4.8); Alkaline Phosphatase 96 U/L (35-104); Anion Gap 9 (5-15); BUN 18 mg/dL (4-19); BUN/Creat Ratio 18.6 RATIO (10-20); Calcium,Total 8.7 mg/dL (7.6-11.0); Carbon Dioxide 25.8 mmol/L (21.0-32.0); Chloride 106 mmol/L (98-108); Globulin 2.9 g/dL (2.2-4.2); Glucose 69 mg/dL (70-99); Potassium 3.9 mmol/L (3.3-5.1)
== END | disposition home or self-care (01) ==
LOC: MTLAB 11:41
PROVIDERS: PCP Family Medicine; Referring Provider Internal Medicine Rheumatology; Visit Provider Internal Medicine Rheumatology
DX: M06.09 Rheumatoid arthritis without rheumatoid factor, multiple sites (principal); Z79.899 Other long term (current) drug therapy; M79.7 Fibromyalgia; M17.0 Bilateral primary osteoarthritis of knee
CPT/HCPCS: 36415; 80053; 85025

== ENCOUNTER → 2025-08-23 | Outpatient (CLI) | payer BC, SELFPAY ==
[2025-08-23 17:43] LABS: Hematocrit 38.2 % (37-47); Hemoglobin 12.2 g/dL (12.0-15.0); Immature Granulocytes Count 0.020 X10^3/uL (0.0-0.0); Mean Corp Hgb Conc 31.9 g/dL (32-36); Mean Corpuscular Volume 92.0 fL (81-99); Mean Platelet Vol. 11.3 fl (6.2-12.0); NRBC Flagged by Analyzer 0 % (0-5); Platelet Count 328 K/mm3 (150-450); RBC Distribution Width CV 14.2 % (11.6-14.6); RBC Distribution Width SD 47.9 fl (35.1-43.9); Red Blood Count 4.15 M/mm3 (4.2-5.4); White Blood Count 7.7 K/mm3 (4.4-11.0)
[2025-08-23 18:10] LABS: AST(SGOT) 22 U/L (<=31); Alanine Aminotransfer ALT/SGPT 18 U/L (<=34); Albumin, Serum 4.0 g/dL (3.4-4.8); Alkaline Phosphatase 98 U/L (35-104); Anion Gap 12 (5-15); BUN 20 mg/dL (4-19); BUN/Creat Ratio 14.5 RATIO (10-20); Calcium,Total 9.3 mg/dL (7.6-11.0); Carbon Dioxide 25.1 mmol/L (21.0-32.0); Chloride 103 mmol/L (98-108); Globulin 3.4 g/dL (2.2-4.2); Glucose 98 mg/dL (70-99); Potassium 4.2 mmol/L (3.3-5.1)
== END | disposition home or self-care (01) ==
LOC: MTLAB 15:53
PROVIDERS: PCP Family Medicine; Referring Provider Internal Medicine Rheumatology; Visit Provider Internal Medicine Rheumatology
DX: M06.09 Rheumatoid arthritis without rheumatoid factor, multiple sites (principal); Z79.899 Other long term (current) drug therapy
CPT/HCPCS: 36415; 80053; 85025